=== PATIENT | female | born 1980 | race Caucasian/White ===

== ENCOUNTER 2017-07-21 10:31 | Inpatient (IN) | payer OTHER ==
[2017-07-21 12:03] VITALS: BMI 26.9
--- NOTE | 2017-07-21 12:23 | HP ---
Admission [facility] Chief Complaint: i need help to stop using crack and marijuana Allergies/Adverse Reactions: Allergies Allergy/AdvReac Type Severity Reaction Status Date / Time Penicillins Allergy Severe Hives Verified 07/21/17 12:13 History of Present Illness: this 37 years old female with crack dependence and marijuana dependence seeking rehab,last treatment [facility] in 02/26 nicotine dependence bipolar disorder need help to come in for rehab , Exam Limitations: No Limitations - Ebola screening Have you traveled outside of the country in the last 21 days: No Have you had contact with anyone from an Ebola affected area: No Have you been sick,other than usual withdrawal symptoms: No Do you have a fever: No - Review of Systems Constitutional: No Symptoms Reported EENT: reports: No Symptoms Reported Respiratory: reports: No Symptoms reported Cardiac: reports: No Symptoms Reported GI: reports: No Symptoms Reported : reports: No Symptoms Reported Musculoskeletal: reports: No Symptoms Reported Integumentary: reports: No Symptoms Reported Neuro: reports: No Symptoms reported Endocrine: reports: No Symptoms Reported Hematology: reports: No Symptoms Reported Psychiatric: reports: No Sypmtoms Reported, Judgement Intact, Mood/Affect Appropiate, Orientated x3 Other Systems: Reviewed and Negative Patient History - Patient Medical History Hx Anemia: No Hx Asthma: No Hx Chronic Obstructive Pulmonary Disease (COPD): No Hx Cancer: No Hx Cardiac Disorders: No Hx Congestive Heart Failure: No Hx Hypertension: No Hx Hypercholesterolemia: No Hx Pacemaker: No HX Cerebrovascular Accident: No Hx Seizures: No Hx Dementia: No Hx Diabetes: No Hx Gastrointestinal Disorders: No Hx Liver Disease: No Hx Genitourinary Disorders: No Hx Sexually Transmitted Disorders: No Hx Renal Disease (ESRD): No Hx Thyroid Disease: No Hx Human Immunodeficiency Virus (HIV): No (last 2012 negative) Hx Hepatitis C: No Hx Depression: No Hx Suicide Attempt: No Hx Bipolar Disorder: Yes (on med) Hx Schizophrenia: No Other Medical History: no suicidal,no homicidal - Patient Surgical History Past Surgical History: No - PPD History Previous Implant?: Yes Documented Results: Negative w/o proof Implanted On Prior [facility] Admission?: No PPD to be Administered?: Yes - Reproductive History Patient is a Female of Child Bearing Age (11 -55 yrs old): Yes Last Menstrual Period: 06/24/17 Patient : No - Smoking Cessation Smoking history: Current every day smoker Have you smoked in the past 12 months: Yes Aproximately how many cigarettes per day: 20 Cigars Per Day: 0 Hx Chewing Tobacco Use: No Initiated information on smoking cessation: Yes 'Breaking Loose' booklet given: 07/21/17 - Substance & Tx. History Hx Alcohol Use: No Hx Substance Use: Yes Substance Use Type: Cocaine, Marijuana Hx Substance Use Treatment: Yes (02/26 [facility]) - Substances Abused Crack Route: Smoking Frequency: Daily Amount used: $80 Age of first use: 23 Date of Last Use: 07/19/17 Marijuana/Hashish Route: Smoking Frequency: 1-2 times per week Amount used: $10 Age of first use: 17 Date of Last Use: 06/21/17 Family Disease History - Family Disease History Family Disease History: Other: Father (alcohol,sober) Admission Physical Exam [facility] - Vital Signs Vital Signs: Vital Signs - 24 hr 07/21/17 11:58 Temperature 96.8 F L Pulse Rate 75 Respiratory 20 Rate Blood Pressure 102/63 - Physical General Appearance: Yes: Within Normal Limits HEENTM: Yes: Within Normal Limits, JADYN, Pharynx Normal Respiratory: Yes: Lungs Clear, Normal Breath Sounds, No Respiratory Distress Neck: Yes: Within Normal Limits, Supple, Trachea in good position Breast: Yes: Within Normal Limits Cardiology: Yes: Within Normal Limits, Regular Rhythm, Regular Rate, S1, S2 Abdominal: Yes: Within Normal Limits, Normal Bowel Sounds, Non Tender, Flat, Soft Genitourinary: Yes: Within Normal Limits Back: Yes: Within Normal Limits Musculoskeletal: Yes: Within Normal Limits Extremities: Yes: Within Normal Limits Neurological: Yes: lacing presser II-XII NML intact, Fully Oriented, Alert, Motor Strength 5/5 Integumentary: Yes: Within Normal Limits Lymphatic: Yes: Within Normal Limits - Diagnostic (1) Cocaine dependence Current Visit: Yes Status: Acute (2) Cannabis dependence Current Visit: Yes Status: Acute (3) Nicotine dependence Current Visit: Yes Status: Chronic (4) Bipolar disorder Current Visit: Yes Status: Acute Cleared for Admission [facility] - Detox or Rehab Claeared for Rehab Admission: Yes [facility] Breath Alcohol Content Breath Alcohol Content: 0 Urine Pregancy Test - Result Urine Test Results: Negative- NO Line Present Urine Drug Screen - Results Drug Screen Negative: No Urine Drug Screen Results: KASEY-Cocaine Inpatient Rehab Admission - Initial Determination Are CD services needed?: Yes Free of communicable disease: Yes Not in need of hospitalization: Yes - Rehab Admission Criteria Previous failed treatment: Yes Poor recovery environment: Yes Comorbidities: Yes Lacks judgement: No Patient is meeting Inpatient Rehab admission criteria:: Yes
[2017-07-21] MEDS ORDERED: MENTHOL/PHENOL 1 EACH UD MM PRN (12:34)
[2017-07-21] MEDS ORDERED: P-EPHED 60MG/TRIPROLIDI 2.5MG TABLET PO PRN (12:34)
[2017-07-21] MEDS ORDERED: ACETAMINOPHEN 325 MG TABLET (FP) PO PRN (12:34)
[2017-07-21] MEDS ORDERED: MAG HYDROX/AL HYDROX/SIMETH 30 ML UNIT-DOSE CUP PO PRN (12:34)
[2017-07-21] MEDS ORDERED: IBUPROFEN 400 MG TABLET (FP) PO PRN (12:34)
[2017-07-21] MEDS ORDERED: MAGNESIUM HYDROX 2400MG/30ML ORAL SUSPENSION 30 ML CUP PO PRN (12:34)
[2017-07-21] MEDS ORDERED: LOPERAMIDE HCL 2 MG CAPSULE PO PRN (12:34)
[2017-07-21] MEDS ORDERED: guaiFENesin/D-METHORPHAN HB 10 ML UNIT-DOSE CUPS PO PRN (12:34)
[2017-07-21] MEDS ORDERED: MAGNESIUM CITRATE 300 ML BOTTLE PO PRN (12:34)
[2017-07-21] MEDS: NICOTINE 21 MG/24 HOURS TOPICAL PATCH TD SCH (14:48)
--- NOTE | 2017-07-21 15:11 | PN ---
[facility] Progress Note Note: Called by nursing staff to order medications for newly admitted patient from [facility]. Medication reconciliation done(Gabapentin 300 mg po TID, Olanzapine 10 mg po HS, Topiramate 50 mg po TID, Effexor XR 225 mg po daily) Patient requests Topiramate to be ordered as followin mg daily & 100 mg HS
[2017-07-21] MEDS: GABAPENTIN 300 MG CAPSULE (FP) PO SCH (21:10)
[2017-07-21] MEDS: TOPIRAMATE 100 MG TABLET PO SCH (21:10)
[2017-07-21] MEDS: THIAMINE HCL 100 MG TABLET (FP) PO SCH (21:10)
[2017-07-21] MEDS: OLANZapine 10 MG TABLET PO SCH (21:10)
[2017-07-21 21:26] LABS: HEMATOCRIT 35.9 % (32.4-45.2); HEMOGLOBIN 12.4 GM/dL (10.7-15.3); MCH 31.7 pg (25.7-33.7); MCHC 34.6 g/dl (32.0-36.0); MEAN CELL VOLUME 91.8 fl (80-96); MEAN PLT VOLUME 9.1 fl (7.5-11.1); PLATELET COUNT 288 K/MM3 (134-434); RBC 3.91 M/mm3 (3.60-5.2); RDW 13.7 % (11.6-15.6); WHITE BLOOD COUNT 7.9 K/mm3 (4.0-10.0)
[2017-07-21 21:45] LABS: ALBUMIN 3.7 g/dl (3.4-5.0); ANION GAP 6 (8-16); BLOOD UREA NITROGEN 16 mg/dL (7-18); CHLORIDE 112 mmol/L (98-107); CO2 25 mmol/L (21-32); CREATININE 1.1 mg/dL (0.55-1.02); GLUCOSE,RANDOM 82 mg/dL (74-106); POTASSIUM 4.2 mmol/L (3.5-5.1); SGOT/AST 8 U/L (15-37); SGPT/ALT 18 U/L (12-78); SODIUM 143 mmol/L (136-145); TOT PROT 7.1 g/dl (6.4-8.2)
[2017-07-21 21:46] LABS: ALK PHOS 66 U/L (45-117)
[2017-07-21 21:52] LABS: BILIRUBIN,TOTAL < 0.1 mg/dL (0.2-1.0)
[2017-07-21 22:31] LABS: URINE APPEARANCE CLOUDY; URINE BILIRUBIN NEGATIVE (<2.0 mg/dL); URINE BLOOD NEGATIVE (NEGATIVE); URINE COLOR YELLOW; URINE GLUCOSE (UA) NEGATIVE (NEGATIVE); URINE KETONE NEGATIVE (NEGATIVE); URINE NITRITE NEGATIVE (NEGATIVE); URINE PROTEIN NEGATIVE (NEGATIVE); URINE UROBILINOGEN NEGATIVE mg/dL (0.2-1.0)
[2017-07-21 22:36] LABS: URINE LEUK ESTERASE 2+ (NEGATIVE)
[2017-07-21 22:40] LABS: EPI CELLS MODERATE /HPF (FEW); URINE BACTERIA RARE /hpf (NONE SEEN); URINE HYALINE CAST 1 /lpf; URINE MUCUS RARE
[2017-07-22] MEDS ORDERED: PT OWN MED DRAWER 7, Y5N ONE (08:56)
[2017-07-22] MEDS: PRENATAL VITAMINS W/ FOLIC ACID TABLET (FP) PO SCH (09:47)
[2017-07-22] MEDS: GABAPENTIN 300 MG CAPSULE (FP) PO SCH ×2 (09:47→21:09)
[2017-07-22] MEDS: NICOTINE 21 MG/24 HOURS TOPICAL PATCH TD SCH (09:47)
[2017-07-22] MEDS: TOPIRAMATE 25 MG TABLET (FP) PO SCH (09:47)
[2017-07-22] MEDS: VENLAFAXINE HCL 75 MG E.R. CAPSULES (FP) PO SCH (09:47)
[2017-07-22] MEDS ORDERED: VENLAFAXINE HCL 25 MG TABLET PO SCH (10:00)
--- NOTE | 2017-07-22 13:32 | EKG ---
Test Reason : Blood Pressure : / mmHG Vent. Rate : 067 BPM Atrial Rate : 067 BPM P-R Int : 180 ms QRS Dur : 084 ms QT Int : 378 ms P-R-T Axes : 046 058 046 degrees QTc Int : 399 ms NORMAL SINUS RHYTHM NORMAL ECG NO PREVIOUS ECGS AVAILABLE Confirmed by SILKE EMERY MD ([id number]) on 07/22/2017 1:31:57 PM Referred By: Confirmed By:SILKE EMERY MD
--- NOTE | 2017-07-22 15:31 | HP ---
Psychiatrist Admission - Data Date of interview: 07/22/17 Admission source: [facility] Identifying data: Pt. is a 37 year old single female, mother of two, unemployed , lives alone, and is supported by [facility]. This is patient's [facility] admission to [facility]. Pt. admitted to [address] [place] [address] for cocaine dependence. Medical History: Denies. Psychiatric History: Patient's first encounter with a psychiatrist was at 20 years of age due to depression. Pt. reports multiple psychiatric hospitalizations, most recently at [facility] in November 2016. Pt. has also been hospitalized at [facility]. Outpatient care is provided at [facility] in [place]. Pt. has a diagnosis of Bipolar disorder and is currently prescribed Gabapentin 300mg BID + Zyprexa 10mg + Effexor 225mg + Topamax 50mg PO daily + Topamax 100mg qhs. Pt is compliant with medication regime. Pt. denies suicide attempt. Pt. currently denies suicidal and homicidal ideation. Physical/Sexual Abuse/Trauma History: Denies. Vital Signs: Vital Signs - 24 hr 07/22/17 07/22/17 07/22/17 00:30 03:30 07:04 Temperature 98.6 F Pulse Rate 97 H Respiratory 18 18 18 Rate Blood Pressure 92/59 Allergies/Adverse Reactions: Allergies Allergy/AdvReac Type Severity Reaction Status Date / Time Penicillins Allergy Severe Hives Verified 07/21/17 12:13 Date of last physical exam: 07/21/17 Concur with the findings of this exam: Yes - Substance Abuse/Tx History Hx Alcohol Use: No Hx Substance Use: Yes (Crack- last used on 07/19/17 Marijuana- last used "months ago") Substance Use Type: Cocaine, Marijuana Hx Substance Use Treatment: Yes ([facility] February 2017) Mental Status Exam - Mental Status Exam Alert and Oriented to: Time, Place, Person Cognitive Function: Good Patient Appearance: Well Groomed Mood: Euthymic Affect: Mood Congruent Patient Behavior: Cooperative Speech Pattern: Clear, Appropriate Voice Loudness: Normal Thought Process: Goal Oriented Thought Disorder: Not Present Hallucinations: Denies Suicidal Ideation: Denies Homicidal Ideation: Denies Insight/Judgement: Poor Sleep: Fair Appetite: Fair Muscle strength/Tone: Normal Gait/Station: Normal Psychiatric Findings - Problem List ([place] 1, 2,3) (1) Bipolar disorder Current Visit: Yes Status: Acute (2) Cocaine dependence Current Visit: Yes Status: Acute (3) Nicotine dependence Current Visit: Yes Status: Chronic - Initial Treatment Plan Initial Treatment Plan: Psychoeducation provided. Rehabilitation in progress. Will continue current medications.
[2017-07-22] MEDS: OLANZapine 10 MG TABLET PO SCH (21:09)
[2017-07-22] MEDS: THIAMINE HCL 100 MG TABLET (FP) PO SCH (21:09)
[2017-07-22] MEDS: TOPIRAMATE 100 MG TABLET PO SCH (21:09)
[2017-07-23] MEDS ORDERED: PT OWN MED DRAWER 7, Y5N ONE (09:41)
[2017-07-23] MEDS: VENLAFAXINE HCL 75 MG E.R. CAPSULES (FP) PO SCH (10:05)
[2017-07-23] MEDS: PRENATAL VITAMINS W/ FOLIC ACID TABLET (FP) PO SCH (10:06)
[2017-07-23] MEDS: GABAPENTIN 300 MG CAPSULE (FP) PO SCH ×2 (10:06→21:05)
[2017-07-23] MEDS: NICOTINE 21 MG/24 HOURS TOPICAL PATCH TD SCH (10:06)
[2017-07-23] MEDS: TOPIRAMATE 25 MG TABLET (FP) PO SCH (10:06)
[2017-07-23] MEDS: THIAMINE HCL 100 MG TABLET (FP) PO SCH (21:05)
[2017-07-23] MEDS: OLANZapine 10 MG TABLET PO SCH (21:05)
[2017-07-23] MEDS: TOPIRAMATE 100 MG TABLET PO SCH (21:05)
[2017-07-23] MEDS: MELATONIN 5 MG TABLETS PO PRN (21:06)
[2017-07-24] MEDS ORDERED: PT OWN MED DRAWER 7, Y5N ONE (09:04)
[2017-07-24] MEDS: GABAPENTIN 300 MG CAPSULE (FP) PO SCH ×2 (09:46→21:19)
[2017-07-24] MEDS: TOPIRAMATE 25 MG TABLET (FP) PO SCH (09:46)
[2017-07-24] MEDS: NICOTINE 21 MG/24 HOURS TOPICAL PATCH TD SCH (09:46)
[2017-07-24] MEDS: PRENATAL VITAMINS W/ FOLIC ACID TABLET (FP) PO SCH (09:46)
[2017-07-24] MEDS: VENLAFAXINE HCL 75 MG E.R. CAPSULES (FP) PO SCH (10:47)
[2017-07-24] MEDS: OLANZapine 10 MG TABLET PO SCH (21:18)
[2017-07-24] MEDS: THIAMINE HCL 100 MG TABLET (FP) PO SCH (21:19)
[2017-07-24] MEDS: TOPIRAMATE 100 MG TABLET PO SCH (21:19)
[2017-07-24] MEDS: MELATONIN 5 MG TABLETS PO PRN (21:19)
[2017-07-25] MEDS ORDERED: PT OWN MED DRAWER 7, Y5N ONE ×2 (07:58→22:54)
[2017-07-25] MEDS: TOPIRAMATE 25 MG TABLET (FP) PO SCH (09:43)
[2017-07-25] MEDS: VENLAFAXINE HCL 75 MG E.R. CAPSULES (FP) PO SCH (09:43)
[2017-07-25] MEDS: PRENATAL VITAMINS W/ FOLIC ACID TABLET (FP) PO SCH (09:43)
[2017-07-25] MEDS: GABAPENTIN 300 MG CAPSULE (FP) PO SCH ×2 (09:43→21:20)
[2017-07-25] MEDS: NICOTINE 21 MG/24 HOURS TOPICAL PATCH TD SCH (09:43)
[2017-07-25] MEDS: THIAMINE HCL 100 MG TABLET (FP) PO SCH (21:20)
[2017-07-25] MEDS: TOPIRAMATE 100 MG TABLET PO SCH (21:20)
[2017-07-25] MEDS: OLANZapine 10 MG TABLET PO SCH (21:20)
[2017-07-25] MEDS: MELATONIN 5 MG TABLETS PO PRN (21:21)
[2017-07-26] MEDS: VENLAFAXINE HCL 75 MG E.R. CAPSULES (FP) PO SCH (09:59)
[2017-07-26] MEDS: TOPIRAMATE 25 MG TABLET (FP) PO SCH (10:00)
[2017-07-26] MEDS: PRENATAL VITAMINS W/ FOLIC ACID TABLET (FP) PO SCH (10:00)
[2017-07-26] MEDS: GABAPENTIN 300 MG CAPSULE (FP) PO SCH ×2 (10:00→21:01)
[2017-07-26] MEDS: NICOTINE 21 MG/24 HOURS TOPICAL PATCH TD SCH (10:01)
[2017-07-26] MEDS ORDERED: PT OWN MED DRAWER 7, Y5N ONE ×3 (11:28→23:29)
[2017-07-26] MEDS: THIAMINE HCL 100 MG TABLET (FP) PO SCH (21:01)
[2017-07-26] MEDS: OLANZapine 10 MG TABLET PO SCH (21:01)
[2017-07-26] MEDS: TOPIRAMATE 100 MG TABLET PO SCH (21:01)
[2017-07-26] MEDS: MELATONIN 5 MG TABLETS PO PRN (21:02)
[2017-07-27] MEDS ORDERED: PT OWN MED DRAWER 7, Y5N ONE (08:06)
[2017-07-27] MEDS: PRENATAL VITAMINS W/ FOLIC ACID TABLET (FP) PO SCH (10:03)
[2017-07-27] MEDS: GABAPENTIN 300 MG CAPSULE (FP) PO SCH ×2 (10:03→21:04)
[2017-07-27] MEDS: TOPIRAMATE 25 MG TABLET (FP) PO SCH (10:03)
[2017-07-27] MEDS: VENLAFAXINE HCL 75 MG E.R. CAPSULES (FP) PO SCH (10:03)
[2017-07-27] MEDS: NICOTINE 21 MG/24 HOURS TOPICAL PATCH TD SCH (10:03)
[2017-07-27] MEDS ORDERED: COLLOIDAL OATMEAL 1 BAR EACH TP PRN (12:46)
--- NOTE | 2017-07-27 12:50 | PN ---
[facility] Progress Note Note: Vital Signs Temperature 98.2 F 07/27/17 06:57 Pulse Rate 67 07/27/17 06:57 Respiratory Rate 18 07/27/17 06:57 Blood Pressure 111/75 07/27/17 06:57 O2 Sat by Pulse Oximetry (%) Laboratory Last Values WBC 7.9 K/mm3 (4.0-10.0) 07/21/17 13:00 RBC 3.91 M/mm3 (3.60-5.2) 07/21/17 13:00 Hgb 12.4 GM/dL (10.7-15.3) 07/21/17 13:00 Hct 35.9 % (32.4-45.2) 07/21/17 13:00 MCV 91.8 fl (80-96) 07/21/17 13:00 MCH 31.7 pg (25.7-33.7) 07/21/17 13:00 MCHC 34.6 g/dl (32.0-36.0) 07/21/17 13:00 RDW 13.7 % (11.6-15.6) 07/21/17 13:00 Plt Count 288 K/MM3 (134-434) 07/21/17 13:00 MPV 9.1 fl (7.5-11.1) 07/21/17 13:00 Sodium 143 mmol/L (136-145) 07/21/17 13:00 Potassium 4.2 mmol/L (3.5-5.1) 07/21/17 13:00 Chloride 112 mmol/L (98-107) H 07/21/17 13:00 Carbon Dioxide 25 mmol/L (21-32) 07/21/17 13:00 Anion Gap 6 (8-16) L 07/21/17 13:00 BUN 16 mg/dL (7-18) 07/21/17 13:00 Creatinine 1.1 mg/dL (0.55-1.02) H 07/21/17 13:00 Creat Clearance w eGFR 55.59 (>60) 07/21/17 13:00 Random Glucose 82 mg/dL (74-106) 07/21/17 13:00 Calcium 9.0 mg/dL (8.5-10.1) 07/21/17 13:00 Total Bilirubin < 0.1 mg/dL (0.2-1.0) L 07/21/17 13:00 AST 8 U/L (15-37) L 07/21/17 13:00 ALT 18 U/L (12-78) 07/21/17 13:00 Alkaline Phosphatase 66 U/L (45-117) 07/21/17 13:00 Total Protein 7.1 g/dl (6.4-8.2) 07/21/17 13:00 Albumin 3.7 g/dl (3.4-5.0) 07/21/17 13:00 Urine Color Yellow 07/21/17 17:40 Urine Appearance Cloudy 07/21/17 17:40 Urine pH 5.0 (5.0-8.0) 07/21/17 17:40 Ur Specific [place] 1.018 (1.001-1.035) 07/21/17 17:40 Urine Protein Negative (NEGATIVE) 07/21/17 17:40 Urine Glucose (UA) Negative (NEGATIVE) 07/21/17 17:40 Urine Ketones Negative (NEGATIVE) 07/21/17 17:40 Urine Blood Negative (NEGATIVE) 07/21/17 17:40 Urine Nitrite Negative (NEGATIVE) 07/21/17 17:40 Urine Bilirubin Negative (<2.0 mg/dL) 07/21/17 17:40 Urine Urobilinogen Negative mg/dL (0.2-1.0) 07/21/17 17:40 Ur Leukocyte Esterase 2+ (NEGATIVE) H 07/21/17 17:40 Urine WBC (Auto) 9 /hpf (3-5) 07/21/17 17:40 Urine RBC (Auto) 2 /hpf (0-3) 07/21/17 17:40 Ur Epithelial Cells Moderate /HPF (FEW) 07/21/17 17:40 Urine Bacteria Rare /hpf (NONE SEEN) 07/21/17 17:40 Hyaline Casts 1 /lpf 07/21/17 17:40 Urine Mucus Rare 07/21/17 17:40 RPR Titer Nonreactive (NONREACTIVE) 07/21/17 13:00 HIV 1&2 Antibody Screen Negative 07/21/17 13:00 HIV P24 Antigen Negative 07/21/17 13:00 patient c/o of redness and itch on face. A/P Patient AOx3, in no apparent distress + erythema and multiple commode on face Increase fluids hydrocortisone cream top BID Benzyl Per PRN Aveno soap Continue to monitor
[2017-07-27] MEDS: BENZOYL PEROXIDE 5% 60 GM GEL..GRAM. TP SCH (17:34)
[2017-07-27] MEDS: HYDROCORTISONE 1% TOPICAL LOTION 118 ML BOTTLE TP PRN (17:35)
[2017-07-27] MEDS: THIAMINE HCL 100 MG TABLET (FP) PO SCH (21:04)
[2017-07-27] MEDS: TOPIRAMATE 100 MG TABLET PO SCH (21:04)
[2017-07-27] MEDS: MELATONIN 5 MG TABLETS PO PRN (21:04)
[2017-07-27] MEDS: OLANZapine 10 MG TABLET PO SCH (21:04)
[2017-07-28] MEDS: NICOTINE 21 MG/24 HOURS TOPICAL PATCH TD SCH (09:47)
[2017-07-28] MEDS: HYDROCORTISONE 1% TOPICAL LOTION 118 ML BOTTLE TP PRN (09:48)
[2017-07-28] MEDS: GABAPENTIN 300 MG CAPSULE (FP) PO SCH ×2 (09:48→21:04)
[2017-07-28] MEDS: PRENATAL VITAMINS W/ FOLIC ACID TABLET (FP) PO SCH (09:48)
[2017-07-28] MEDS: TOPIRAMATE 25 MG TABLET (FP) PO SCH (09:48)
[2017-07-28] MEDS: BENZOYL PEROXIDE 5% 60 GM GEL..GRAM. TP SCH (09:49)
[2017-07-28] MEDS: VENLAFAXINE HCL 75 MG E.R. CAPSULES (FP) PO SCH (10:03)
[2017-07-28] MEDS: TOPIRAMATE 100 MG TABLET PO SCH (21:04)
[2017-07-28] MEDS: OLANZapine 10 MG TABLET PO SCH (21:04)
[2017-07-28] MEDS: MELATONIN 5 MG TABLETS PO PRN (21:04)
[2017-07-28] MEDS: THIAMINE HCL 100 MG TABLET (FP) PO SCH (21:04)
[2017-07-29] MEDS: NICOTINE 21 MG/24 HOURS TOPICAL PATCH TD SCH (09:47)
[2017-07-29] MEDS: PRENATAL VITAMINS W/ FOLIC ACID TABLET (FP) PO SCH (09:47)
[2017-07-29] MEDS: GABAPENTIN 300 MG CAPSULE (FP) PO SCH ×2 (09:47→21:10)
[2017-07-29] MEDS: TOPIRAMATE 25 MG TABLET (FP) PO SCH (09:47)
[2017-07-29] MEDS: VENLAFAXINE HCL 75 MG E.R. CAPSULES (FP) PO SCH (09:47)
[2017-07-29] MEDS: BENZOYL PEROXIDE 5% 60 GM GEL..GRAM. TP SCH (09:47)
[2017-07-29] MEDS: HYDROCORTISONE 1% TOPICAL LOTION 118 ML BOTTLE TP PRN (09:47)
[2017-07-29] MEDS: TOPIRAMATE 100 MG TABLET PO SCH (21:10)
[2017-07-29] MEDS: OLANZapine 10 MG TABLET PO SCH (21:10)
[2017-07-29] MEDS: THIAMINE HCL 100 MG TABLET (FP) PO SCH (21:11)
[2017-07-29] MEDS: MELATONIN 5 MG TABLETS PO PRN (21:11)
[2017-07-29] MEDS ORDERED: PT OWN MED DRAWER 7, Y5N ONE (23:30)
[2017-07-30] MEDS ORDERED: PT OWN MED DRAWER 7, Y5N ONE (08:20)
[2017-07-30] MEDS: BENZOYL PEROXIDE 5% 60 GM GEL..GRAM. TP SCH (10:05)
[2017-07-30] MEDS: NICOTINE 21 MG/24 HOURS TOPICAL PATCH TD SCH (10:05)
[2017-07-30] MEDS: TOPIRAMATE 25 MG TABLET (FP) PO SCH (10:07)
[2017-07-30] MEDS: PRENATAL VITAMINS W/ FOLIC ACID TABLET (FP) PO SCH (10:07)
[2017-07-30] MEDS: GABAPENTIN 300 MG CAPSULE (FP) PO SCH ×2 (10:07→21:12)
[2017-07-30] MEDS: VENLAFAXINE HCL 75 MG E.R. CAPSULES (FP) PO SCH (10:59)
--- NOTE | 2017-07-30 13:57 | PN ---
Psychiatric Progress Note Vital Signs: Vital Signs Period Temp Pulse Resp BP Sys/Mccarthy Pulse Ox Last 24 Hr 98.0 F 82 16-18 105/69 Date of Session: 07/30/17 Chief Complaint:: "depessed" HPI: Patient is addresing cocaine, nicotine dependence comorbid bipolar disorder. Current Medications: Active Medications Generic Name Dose Route Start Last Admin Trade Name Freq PRN Reason Stop Dose Admin Acetaminophen 650 mg 07/21/17 12:34 Tylenol - PO Q4H PRN FEVER Al Hydroxide/Mg Hydroxide 30 ml 07/21/17 12:34 07/22/17 11:25 Mylanta Oral Suspension - PO 30 ml Q6H PRN Administration DYSPEPSIA Benzoyl Peroxide 1 applic 07/27/17 17:00 07/30/17 10:05 Benzoyl Peroxide 5% Gel - TP 1 applic DAILY LISA Administration Colloidal Oatmeal 1 applic 07/27/17 12:46 07/27/17 15:54 Aveeno Soap - TP 1 bar DAILY PRN Administration HYGEINE Eucalyptus/Menthol/Phenol/Sorbitol 1 each 07/21/17 12:34 Cepastat Lozenge - MM Q4H PRN SORE THROAT Gabapentin 300 mg 07/21/17 22:00 07/30/17 10:07 Neurontin - PO 300 mg BID LISA Administration Guaifenesin 10 ml 07/21/17 12:34 Robitussin Dm - PO Q6H PRN COUGH Hydrocortisone 1 applic 07/27/17 12:47 07/29/17 09:47 Hytone 1% Lotion - TP 1 applic BID PRN Administration skin irritation Hydroxyzine Pamoate 50 mg 07/21/17 12:34 Vistaril - PO Q4H PRN AGITATION Ibuprofen 400 mg 07/21/17 12:34 Motrin - PO Q6H PRN Pain level 4-6 Loperamide HCl 4 mg 07/21/17 12:34 Imodium - PO Q6H PRN DIARRHEA Magnesium Citrate 300 ml 07/21/17 12:34 Citroma - PO Q48H PRN CONSTIPATION Magnesium Hydroxide 30 ml 07/21/17 12:34 Milk Of Magnesia - PO DAILY PRN CONSTIPATION Melatonin 5 mg 07/21/17 22:00 07/29/17 21:11 Melatonin PO 5 mg HS PRN Administration INSOMNIA Nicotine 21 mg 07/21/17 12:45 04/20/18 10:05 Nicoderm Patch - TD 21 mg DAILY LISA Administration Olanzapine 10 mg 07/21/17 22:00 07/29/17 21:10 Zyprexa - PO 10 mg HS LISA Administration Multivit/Folic Acid/Iron 1 tab 07/22/17 10:00 07/30/17 10:07 Vitamins ([facility]) - PO 1 tab DAILY LISA Administration Pseudoephedrine/Triprolidine 1 combo 07/21/17 12:34 Actifed - PO TID PRN NASAL CONGESTION Thiamine HCl 100 mg 07/21/17 22:00 07/29/17 21:11 Vitamin B1 - PO 100 mg HS LISA Administration Topiramate 50 mg 07/22/17 10:00 07/30/17 10:07 Topamax - PO 50 mg DAILY LISA Administration Topiramate 100 mg 07/21/17 22:00 07/29/17 21:10 Topamax - PO 100 mg HS LISA Administration Venlafaxine HCl 225 mg 07/22/17 10:00 07/30/17 10:59 Effexor Xr - PO 225 mg DAILY LISA Administration Current Side Effect: No Lab tests ordered: No Lab tests reviewed: Yes Provider note:: Patient was seen chart reviewed, HORTENCIA Gamez's notes appreciateed , met with the patient who reports "my counselor says I have a flat affect", patient reports feeling trish, depressed, currently on different psychotropics, sees the psychiatrist at [facility] in [place], reviewed all current medications with the patient, indications and properties discussed, recommended Wellbutrin 100 mg po daily, patient agreed with care plan. Total face to face time:: 25 Mental Status Exam - Mental Status Exam Alert and Oriented to: Time, Place, Person Cognitive Function: Grossly Intact Patient Appearance: Well Groomed Mood: Apathetic, Depressed, Sad Affect: Appropriate, Mood Congruent Patient Behavior: Appropriate, Cooperative Speech Pattern: Appropriate Voice Loudness: Normal Thought Process: Goal Oriented Thought Disorder: Not Present Hallucinations: Denies Suicidal Ideation: Denies Homicidal Ideation: Denies Insight/Judgement: Fair Sleep: Fair Appetite: Fair Muscle strength/Tone: Normal Gait/Station: Normal Psychiatric Treatment Plan - Problem List (1) Bipolar disorder Current Visit: Yes (2) Cannabis dependence Current Visit: Yes (3) Cocaine dependence Current Visit: Yes (4) Nicotine dependence Current Visit: Yes Qualifiers: Nicotine product type: cigarettes
[2017-07-30] MEDS: hydrOXYzine PAMOATE 50 MG CAPSULE (FP) PO PRN (15:52)
[2017-07-30] MEDS: TOPIRAMATE 100 MG TABLET PO SCH (21:12)
[2017-07-30] MEDS: OLANZapine 10 MG TABLET PO SCH (21:12)
[2017-07-30] MEDS: THIAMINE HCL 100 MG TABLET (FP) PO SCH (21:12)
[2017-07-30] MEDS: MELATONIN 5 MG TABLETS PO PRN (21:13)
[2017-07-31] MEDS: TOPIRAMATE 25 MG TABLET (FP) PO SCH (09:54)
[2017-07-31] MEDS: VENLAFAXINE HCL 75 MG E.R. CAPSULES (FP) PO SCH (09:54)
[2017-07-31] MEDS: GABAPENTIN 300 MG CAPSULE (FP) PO SCH ×2 (09:54→21:02)
[2017-07-31] MEDS: PRENATAL VITAMINS W/ FOLIC ACID TABLET (FP) PO SCH (09:54)
[2017-07-31] MEDS: buPROPion HCL 100 MG TABLET PO SCH (09:54)
[2017-07-31] MEDS: NICOTINE 21 MG/24 HOURS TOPICAL PATCH TD SCH (09:55)
[2017-07-31] MEDS: BENZOYL PEROXIDE 5% 60 GM GEL..GRAM. TP SCH (09:56)
[2017-07-31] MEDS: OLANZapine 10 MG TABLET PO SCH (21:02)
[2017-07-31] MEDS: TOPIRAMATE 100 MG TABLET PO SCH (21:02)
[2017-07-31] MEDS: THIAMINE HCL 100 MG TABLET (FP) PO SCH (21:03)
[2017-07-31] MEDS: MELATONIN 5 MG TABLETS PO PRN (21:03)
[2017-08-01] MEDS: VENLAFAXINE HCL 75 MG E.R. CAPSULES (FP) PO SCH (09:53)
[2017-08-01] MEDS: TOPIRAMATE 25 MG TABLET (FP) PO SCH (09:53)
[2017-08-01] MEDS: GABAPENTIN 300 MG CAPSULE (FP) PO SCH ×2 (09:53→21:04)
[2017-08-01] MEDS: buPROPion HCL 100 MG TABLET PO SCH (09:53)
[2017-08-01] MEDS: PRENATAL VITAMINS W/ FOLIC ACID TABLET (FP) PO SCH (09:53)
[2017-08-01] MEDS: NICOTINE 21 MG/24 HOURS TOPICAL PATCH TD SCH (09:54)
[2017-08-01] MEDS: BENZOYL PEROXIDE 5% 60 GM GEL..GRAM. TP SCH (09:55)
[2017-08-01] MEDS: hydrOXYzine PAMOATE 50 MG CAPSULE (FP) PO PRN (13:03)
[2017-08-01] MEDS: THIAMINE HCL 100 MG TABLET (FP) PO SCH (21:04)
[2017-08-01] MEDS: TOPIRAMATE 100 MG TABLET PO SCH (21:04)
[2017-08-01] MEDS: OLANZapine 10 MG TABLET PO SCH (21:05)
[2017-08-01] MEDS: MELATONIN 5 MG TABLETS PO PRN (21:05)
[2017-08-02] MEDS ORDERED: PT OWN MED DRAWER 7, Y5N ONE ×2 (08:12→19:11)
[2017-08-02] MEDS: TOPIRAMATE 25 MG TABLET (FP) PO SCH (09:38)
[2017-08-02] MEDS: GABAPENTIN 300 MG CAPSULE (FP) PO SCH ×2 (09:38→21:00)
[2017-08-02] MEDS: buPROPion HCL 100 MG TABLET PO SCH (09:38)
[2017-08-02] MEDS: NICOTINE 21 MG/24 HOURS TOPICAL PATCH TD SCH (09:39)
[2017-08-02] MEDS: BENZOYL PEROXIDE 5% 60 GM GEL..GRAM. TP SCH (09:39)
[2017-08-02] MEDS: VENLAFAXINE HCL 75 MG E.R. CAPSULES (FP) PO SCH (09:39)
[2017-08-02] MEDS: PRENATAL VITAMINS W/ FOLIC ACID TABLET (FP) PO SCH (09:39)
[2017-08-02] MEDS: TOPIRAMATE 100 MG TABLET PO SCH (21:00)
[2017-08-02] MEDS: OLANZapine 10 MG TABLET PO SCH (21:00)
[2017-08-02] MEDS: MELATONIN 5 MG TABLETS PO PRN (21:00)
[2017-08-02] MEDS: THIAMINE HCL 100 MG TABLET (FP) PO SCH (21:00)
[2017-08-03] MEDS: VENLAFAXINE HCL 75 MG E.R. CAPSULES (FP) PO SCH (09:56)
[2017-08-03] MEDS: GABAPENTIN 300 MG CAPSULE (FP) PO SCH ×2 (09:56→21:10)
[2017-08-03] MEDS: TOPIRAMATE 25 MG TABLET (FP) PO SCH (09:56)
[2017-08-03] MEDS: PRENATAL VITAMINS W/ FOLIC ACID TABLET (FP) PO SCH (09:56)
[2017-08-03] MEDS: NICOTINE 21 MG/24 HOURS TOPICAL PATCH TD SCH (09:57)
[2017-08-03] MEDS: BENZOYL PEROXIDE 5% 60 GM GEL..GRAM. TP SCH (09:57)
[2017-08-03] MEDS: hydrOXYzine PAMOATE 50 MG CAPSULE (FP) PO PRN ×2 (10:50→21:11)
[2017-08-03] MEDS: buPROPion HCL 100 MG TABLET PO SCH (10:50)
[2017-08-03] MEDS: THIAMINE HCL 100 MG TABLET (FP) PO SCH (21:10)
[2017-08-03] MEDS: TOPIRAMATE 100 MG TABLET PO SCH (21:10)
[2017-08-03] MEDS: OLANZapine 10 MG TABLET PO SCH (21:10)
[2017-08-03] MEDS: MELATONIN 5 MG TABLETS PO PRN (21:11)
[2017-08-04] MEDS: hydrOXYzine PAMOATE 50 MG CAPSULE (FP) PO PRN ×2 (08:20→22:28)
[2017-08-04] MEDS: VENLAFAXINE HCL 75 MG E.R. CAPSULES (FP) PO SCH (09:50)
[2017-08-04] MEDS: buPROPion HCL 100 MG TABLET PO SCH (09:50)
[2017-08-04] MEDS: TOPIRAMATE 25 MG TABLET (FP) PO SCH (09:50)
[2017-08-04] MEDS: PRENATAL VITAMINS W/ FOLIC ACID TABLET (FP) PO SCH (09:51)
[2017-08-04] MEDS: GABAPENTIN 300 MG CAPSULE (FP) PO SCH ×2 (09:51→21:06)
[2017-08-04] MEDS: NICOTINE 21 MG/24 HOURS TOPICAL PATCH TD SCH (09:52)
[2017-08-04] MEDS: BENZOYL PEROXIDE 5% 60 GM GEL..GRAM. TP SCH (09:53)
--- NOTE | 2017-08-04 13:08 | PN ---
Psychiatric Progress Note Vital Signs: Vital Signs Period Temp Pulse Resp BP Sys/Mccarthy Pulse Ox Last 24 Hr 98.0 F 78 16-18 103/70 Date of Session: 08/04/17 Chief Complaint:: " I have questions on my medications." HPI: Pt. admitted to for cocaine dependence. ROS: Unremarkable Current Medications: Active Medications Generic Name Dose Route Start Last Admin Trade Name Freq PRN Reason Stop Dose Admin Acetaminophen 650 mg 07/21/17 12:34 Tylenol - PO Q4H PRN FEVER Al Hydroxide/Mg Hydroxide 30 ml 07/21/17 12:34 07/22/17 11:25 Mylanta Oral Suspension - PO 30 ml Q6H PRN Administration DYSPEPSIA Benzoyl Peroxide 1 applic 07/27/17 17:00 08/04/17 09:53 Benzoyl Peroxide 5% Gel - TP 1 applic DAILY LISA Administration Bupropion HCl 100 mg 07/31/17 10:00 08/04/17 09:50 Wellbutrin - PO 100 mg DAILY LISA Administration Colloidal Oatmeal 1 applic 07/27/17 12:46 07/27/17 15:54 Aveeno Soap - TP 1 bar DAILY PRN Administration HYGEINE Eucalyptus/Menthol/Phenol/Sorbitol 1 each 07/21/17 12:34 Cepastat Lozenge - MM Q4H PRN SORE THROAT Gabapentin 300 mg 07/21/17 22:00 08/04/17 09:51 Neurontin - PO 300 mg BID LISA Administration Guaifenesin 10 ml 07/21/17 12:34 Robitussin Dm - PO Q6H PRN COUGH Hydrocortisone 1 applic 07/27/17 12:47 07/29/17 09:47 Hytone 1% Lotion - TP 1 applic BID PRN Administration skin irritation Hydroxyzine Pamoate 50 mg 07/21/17 12:34 08/04/17 08:20 Vistaril - PO 50 mg Q4H PRN Administration AGITATION Ibuprofen 400 mg 07/21/17 12:34 Motrin - PO Q6H PRN Pain level 4-6 Loperamide HCl 4 mg 07/21/17 12:34 Imodium - PO Q6H PRN DIARRHEA Magnesium Citrate 300 ml 07/21/17 12:34 Citroma - PO Q48H PRN CONSTIPATION Magnesium Hydroxide 30 ml 07/21/17 12:34 Milk Of Magnesia - PO DAILY PRN CONSTIPATION Melatonin 5 mg 07/21/17 22:00 08/03/17 21:11 Melatonin PO 5 mg HS PRN Administration INSOMNIA Nicotine 21 mg 07/21/17 12:45 08/04/17 09:52 Nicoderm Patch - TD 21 mg DAILY LISA Administration Olanzapine 10 mg 07/21/17 22:00 08/03/17 21:10 Zyprexa - PO 10 mg HS LISA Administration Multivit/Folic Acid/Iron 1 tab 07/22/17 10:00 08/04/17 09:51 Vitamins ([facility]jr) - PO 1 tab DAILY LISA Administration Pseudoephedrine/Triprolidine 1 combo 07/21/17 12:34 Actifed - PO TID PRN NASAL CONGESTION Thiamine HCl 100 mg 07/21/17 22:00 08/03/17 21:10 Vitamin B1 - PO 100 mg HS LISA Administration Topiramate 50 mg 07/22/17 10:00 08/04/17 09:50 Topamax - PO 50 mg DAILY LISA Administration Topiramate 100 mg 07/21/17 22:00 08/03/17 21:10 Topamax - PO 100 mg HS LISA Administration Venlafaxine HCl 225 mg 07/22/17 10:00 08/04/17 09:50 Effexor Xr - PO 225 mg DAILY LISA Administration Medication(s) Change(s): No. Current Side Effect: No Lab tests ordered: No Lab tests reviewed: Yes Provider note:: War[facility] Preparer met with patient concerning her current medications. Pt. expressing concerns about the effectiveness of Wellbutrin. Dr. Murphy's note read and appreciated. Pt. was started on wellbutrin 100mg on 07/31/17. Pt. reports not feeling any different since starting Wellbutrin 100mg. Pt. informed that certain medications take several weeks to work until an individual can sense an improvement in mood. Pt. also educated on the other psychtrophic medications she is currently accepting: topmax + Effexor. Pt. satisifed and receptive to feedback. Will continue to monitor. Total face to face time:: 15 Mental Status Exam - Mental Status Exam Alert and Oriented to: Time, Place, Person Cognitive Function: Good Patient Appearance: Well Groomed Mood: Hopeful Affect: Mood Congruent Patient Behavior: Appropriate, Cooperative Speech Pattern: Appropriate Voice Loudness: Normal Thought Disorder: Not Present Hallucinations: Denies Suicidal Ideation: Denies Homicidal Ideation: Denies Insight/Judgement: Poor Sleep: Fair Appetite: Good Muscle strength/Tone: Normal Gait/Station: Normal Psychiatric Treatment Plan - Problem List (1) Bipolar disorder Current Visit: Yes (2) Cocaine dependence Current Visit: Yes (3) Nicotine dependence Current Visit: Yes Qualifiers: Nicotine product type: cigarettes
[2017-08-04] MEDS ORDERED: PT OWN MED DRAWER 7, Y5N ONE ×2 (21:01→23:32)
[2017-08-04] MEDS: MELATONIN 5 MG TABLETS PO PRN (21:06)
[2017-08-04] MEDS: TOPIRAMATE 100 MG TABLET PO SCH (21:07)
[2017-08-04] MEDS: THIAMINE HCL 100 MG TABLET (FP) PO SCH (21:07)
[2017-08-04] MEDS: OLANZapine 10 MG TABLET PO SCH (21:07)
[2017-08-05] MEDS ORDERED: PT OWN MED DRAWER 7, Y5N ONE ×4 (07:40→23:26)
[2017-08-05] MEDS: GABAPENTIN 300 MG CAPSULE (FP) PO SCH ×2 (09:44→21:14)
[2017-08-05] MEDS: PRENATAL VITAMINS W/ FOLIC ACID TABLET (FP) PO SCH (09:44)
[2017-08-05] MEDS: buPROPion HCL 100 MG TABLET PO SCH (09:44)
[2017-08-05] MEDS: VENLAFAXINE HCL 75 MG E.R. CAPSULES (FP) PO SCH (09:44)
[2017-08-05] MEDS: NICOTINE 21 MG/24 HOURS TOPICAL PATCH TD SCH (09:44)
[2017-08-05] MEDS: TOPIRAMATE 25 MG TABLET (FP) PO SCH (09:44)
[2017-08-05] MEDS: BENZOYL PEROXIDE 5% 60 GM GEL..GRAM. TP SCH (09:45)
[2017-08-05] MEDS: TOPIRAMATE 100 MG TABLET PO SCH (21:13)
[2017-08-05] MEDS: THIAMINE HCL 100 MG TABLET (FP) PO SCH (21:13)
[2017-08-05] MEDS: OLANZapine 10 MG TABLET PO SCH (21:13)
[2017-08-05] MEDS: MELATONIN 5 MG TABLETS PO PRN (21:14)
[2017-08-06] MEDS: NICOTINE 21 MG/24 HOURS TOPICAL PATCH TD SCH (10:12)
[2017-08-06] MEDS: BENZOYL PEROXIDE 5% 60 GM GEL..GRAM. TP SCH (10:12)
[2017-08-06] MEDS: VENLAFAXINE HCL 75 MG E.R. CAPSULES (FP) PO SCH (10:13)
[2017-08-06] MEDS: GABAPENTIN 300 MG CAPSULE (FP) PO SCH ×2 (10:14→21:03)
[2017-08-06] MEDS: PRENATAL VITAMINS W/ FOLIC ACID TABLET (FP) PO SCH (10:14)
[2017-08-06] MEDS: TOPIRAMATE 25 MG TABLET (FP) PO SCH (10:14)
[2017-08-06] MEDS: buPROPion HCL 100 MG TABLET PO SCH (10:14)
[2017-08-06] MEDS: HYDROCORTISONE 1% TOPICAL LOTION 118 ML BOTTLE TP PRN (12:21)
[2017-08-06] MEDS ORDERED: PT OWN MED DRAWER 7, Y5N ONE (12:22)
[2017-08-06] MEDS: THIAMINE HCL 100 MG TABLET (FP) PO SCH (21:03)
[2017-08-06] MEDS: OLANZapine 10 MG TABLET PO SCH (21:03)
[2017-08-06] MEDS: TOPIRAMATE 100 MG TABLET PO SCH (21:04)
[2017-08-06] MEDS: MELATONIN 5 MG TABLETS PO PRN (21:05)
[2017-08-07] MEDS ORDERED: PT OWN MED DRAWER 7, Y5N ONE ×4 (08:39→22:33)
[2017-08-07] MEDS: BENZOYL PEROXIDE 5% 60 GM GEL..GRAM. TP SCH (09:32)
[2017-08-07] MEDS: VENLAFAXINE HCL 75 MG E.R. CAPSULES (FP) PO SCH (09:33)
[2017-08-07] MEDS: GABAPENTIN 300 MG CAPSULE (FP) PO SCH ×2 (09:34→21:11)
[2017-08-07] MEDS: NICOTINE 21 MG/24 HOURS TOPICAL PATCH TD SCH (09:34)
[2017-08-07] MEDS: TOPIRAMATE 25 MG TABLET (FP) PO SCH (09:34)
[2017-08-07] MEDS: buPROPion HCL 100 MG TABLET PO SCH (09:34)
[2017-08-07] MEDS: PRENATAL VITAMINS W/ FOLIC ACID TABLET (FP) PO SCH (09:34)
[2017-08-07] MEDS: OLANZapine 10 MG TABLET PO SCH (21:11)
[2017-08-07] MEDS: TOPIRAMATE 100 MG TABLET PO SCH (21:11)
[2017-08-07] MEDS: THIAMINE HCL 100 MG TABLET (FP) PO SCH (21:11)
[2017-08-07] MEDS: MELATONIN 5 MG TABLETS PO PRN (21:11)
[2017-08-08] MEDS: BENZOYL PEROXIDE 5% 60 GM GEL..GRAM. TP SCH (09:31)
[2017-08-08] MEDS: VENLAFAXINE HCL 75 MG E.R. CAPSULES (FP) PO SCH (09:31)
[2017-08-08] MEDS: NICOTINE 21 MG/24 HOURS TOPICAL PATCH TD SCH (09:32)
[2017-08-08] MEDS: TOPIRAMATE 25 MG TABLET (FP) PO SCH (09:32)
[2017-08-08] MEDS: PRENATAL VITAMINS W/ FOLIC ACID TABLET (FP) PO SCH (09:32)
[2017-08-08] MEDS: GABAPENTIN 300 MG CAPSULE (FP) PO SCH ×2 (09:32→21:17)
[2017-08-08] MEDS: buPROPion HCL 100 MG TABLET PO SCH (09:32)
[2017-08-08] MEDS: THIAMINE HCL 100 MG TABLET (FP) PO SCH (21:17)
[2017-08-08] MEDS: OLANZapine 10 MG TABLET PO SCH (21:17)
[2017-08-08] MEDS: MELATONIN 5 MG TABLETS PO PRN (21:17)
[2017-08-08] MEDS: TOPIRAMATE 100 MG TABLET PO SCH (21:17)
[2017-08-08] MEDS ORDERED: PT OWN MED DRAWER 7, Y5N ONE (22:59)
[2017-08-09] MEDS ORDERED: PT OWN MED DRAWER 7, Y5N ONE (08:31)
[2017-08-09] MEDS: VENLAFAXINE HCL 75 MG E.R. CAPSULES (FP) PO SCH (09:43)
[2017-08-09] MEDS: TOPIRAMATE 25 MG TABLET (FP) PO SCH (09:43)
[2017-08-09] MEDS: buPROPion HCL 100 MG TABLET PO SCH (09:43)
[2017-08-09] MEDS: GABAPENTIN 300 MG CAPSULE (FP) PO SCH ×2 (09:43→21:00)
[2017-08-09] MEDS: PRENATAL VITAMINS W/ FOLIC ACID TABLET (FP) PO SCH (09:43)
[2017-08-09] MEDS: NICOTINE 21 MG/24 HOURS TOPICAL PATCH TD SCH (09:43)
[2017-08-09] MEDS: BENZOYL PEROXIDE 5% 60 GM GEL..GRAM. TP SCH (09:44)
--- NOTE | 2017-08-09 10:33 | PN ---
Psychiatric Progress Note Vital Signs: Vital Signs Period Temp Pulse Resp BP Sys/Mccarthy Pulse Ox Last 24 Hr 98.1 F 74 18-18 115/81 Date of Session: 08/09/17 Chief Complaint:: Discharge visit HPI: Patient addressed Cocaine,Cannabis dependence comorbid with Bipolar disorder. ROS: unremarkable Current Medications: Active Medications Generic Name Dose Route Start Last Admin Trade Name Freq PRN Reason Stop Dose Admin Acetaminophen 650 mg 07/21/17 12:34 Tylenol - PO Q4H PRN FEVER Al Hydroxide/Mg Hydroxide 30 ml 07/21/17 12:34 07/22/17 11:25 Mylanta Oral Suspension - PO 30 ml Q6H PRN Administration DYSPEPSIA Benzoyl Peroxide 1 applic 07/27/17 17:00 08/09/17 09:44 Benzoyl Peroxide 5% Gel - TP 1 applic DAILY LISA Administration Bupropion HCl 100 mg 07/31/17 10:00 08/09/17 09:43 Wellbutrin - PO 100 mg DAILY LISA Administration Colloidal Oatmeal 1 applic 07/27/17 12:46 07/27/17 15:54 Aveeno Soap - TP 1 bar DAILY PRN Administration HYGEINE Eucalyptus/Menthol/Phenol/Sorbitol 1 each 07/21/17 12:34 Cepastat Lozenge - MM Q4H PRN SORE THROAT Gabapentin 300 mg 07/21/17 22:00 08/09/17 09:43 Neurontin - PO 300 mg BID LISA Administration Guaifenesin 10 ml 07/21/17 12:34 Robitussin Dm - PO Q6H PRN COUGH Hydrocortisone 1 applic 07/27/17 12:47 08/06/17 12:21 Hytone 1% Lotion - TP 1 applic BID PRN Administration skin irritation Hydroxyzine Pamoate 50 mg 07/21/17 12:34 08/04/17 22:28 Vistaril - PO 50 mg Q4H PRN Administration AGITATION Ibuprofen 400 mg 07/21/17 12:34 Motrin - PO Q6H PRN Pain level 4-6 Loperamide HCl 4 mg 07/21/17 12:34 Imodium - PO Q6H PRN DIARRHEA Magnesium Citrate 300 ml 07/21/17 12:34 Citroma - PO Q48H PRN CONSTIPATION Magnesium Hydroxide 30 ml 07/21/17 12:34 Milk Of Magnesia - PO DAILY PRN CONSTIPATION Melatonin 5 mg 07/21/17 22:00 08/08/17 21:17 Melatonin PO 5 mg HS PRN Administration INSOMNIA Nicotine 21 mg 07/21/17 12:45 08/09/17 09:43 Nicoderm Patch - TD 21 mg DAILY LISA Administration Olanzapine 10 mg 07/21/17 22:00 08/08/17 21:17 Zyprexa - PO 10 mg HS LISA Administration Multivit/Folic Acid/Iron 1 tab 07/22/17 10:00 08/09/17 09:43 Vitamins (Sjr) - PO 1 tab DAILY LISA Administration Pseudoephedrine/Triprolidine 1 combo 07/21/17 12:34 Actifed - PO TID PRN NASAL CONGESTION Thiamine HCl 100 mg 07/21/17 22:00 08/08/17 21:17 Vitamin B1 - PO 100 mg HS LISA Administration Topiramate 50 mg 07/22/17 10:00 08/09/17 09:43 Topamax - PO 50 mg DAILY LISA Administration Topiramate 100 mg 07/21/17 22:00 08/08/17 21:17 Topamax - PO 100 mg HS LISA Administration Venlafaxine HCl 225 mg 07/22/17 10:00 08/09/17 09:43 Effexor Xr - PO 225 mg DAILY LISA Administration Current Side Effect: No Lab tests ordered: No Lab tests reviewed: Yes Provider note:: Patient will complete this program tomorrow 08/10/17.She has met her treatment goals and will continue to address her issues on outpatient basis at [facility].Patient reports finding that Neurontin 300 mg po bid, Zyprexa 10 mg po hs,Effexor 225 mg po daily, Topamax 100 mg po daily and Topamax 50 mg po daily,Wellbutrin 100 mg po daily help to cope with anxiety, depression,mood instability,insomnia.Scripts for 30 days provided. Supportive therapy provided focusing on relapse prevention,coping skills,support utilization has been discussed as well as other resourses to maintain recovery. Patient is stable for discharge tomorrow 08/10/17. Total face to face time:: 30 Mental Status Exam - Mental Status Exam Alert and Oriented to: Time, Place, Person Cognitive Function: Grossly Intact Patient Appearance: Well Groomed Mood: Euthymic Affect: Mood Congruent Patient Behavior: Cooperative Speech Pattern: Clear Voice Loudness: Normal Thought Process: Goal Oriented Thought Disorder: Not Present Hallucinations: Denies Suicidal Ideation: Denies Homicidal Ideation: Denies Insight/Judgement: Fair Sleep: Fair Appetite: Good Muscle strength/Tone: Normal Gait/Station: Normal Psychiatric Treatment Plan - Problem List (1) Cannabis dependence Current Visit: Yes (2) Cocaine dependence Current Visit: Yes (3) Nicotine dependence Current Visit: Yes Qualifiers: Nicotine product type: cigarettes (4) Bipolar disorder Current Visit: Yes
[2017-08-09] MEDS: hydrOXYzine PAMOATE 50 MG CAPSULE (FP) PO PRN ×2 (14:54→21:01)
[2017-08-09] MEDS: OLANZapine 10 MG TABLET PO SCH (21:00)
[2017-08-09] MEDS: TOPIRAMATE 100 MG TABLET PO SCH (21:00)
[2017-08-09] MEDS: THIAMINE HCL 100 MG TABLET (FP) PO SCH (21:00)
[2017-08-09] MEDS: MELATONIN 5 MG TABLETS PO PRN (21:01)
[2017-08-10 06:48] VITALS: BP 106/73; PULSE 70; TEMP 98.5
[2017-08-10] MEDS ORDERED: PT OWN MED DRAWER 7, Y5N ONE (08:36)
[2017-08-10] MEDS: PRENATAL VITAMINS W/ FOLIC ACID TABLET (FP) PO SCH (09:13)
[2017-08-10] MEDS: NICOTINE 21 MG/24 HOURS TOPICAL PATCH TD SCH (09:13)
[2017-08-10] MEDS: GABAPENTIN 300 MG CAPSULE (FP) PO SCH (09:14)
[2017-08-10] MEDS: buPROPion HCL 100 MG TABLET PO SCH (09:14)
[2017-08-10] MEDS: VENLAFAXINE HCL 75 MG E.R. CAPSULES (FP) PO SCH (09:14)
[2017-08-10] MEDS: TOPIRAMATE 25 MG TABLET (FP) PO SCH (09:14)
== END 2017-08-10 09:47 | disposition home or self-care (01) | DRG 772 ==
LOC: YASAS 10:31 → Y3E 12:35
PROVIDERS: ADMIT Psychiatry & Neurology Psychiatry; ATTEND Psychiatry & Neurology Psychiatry
PROC: HZ42ZZZ Group Counseling for Substance Abuse Treatment, Cognitive-Behavioral (ICD-10-PCS; principal; 2017-07-21)
DX: F14.20 Cocaine dependence, uncomplicated (principal); F12.20 Cannabis dependence, uncomplicated; F17.210 Nicotine dependence, cigarettes, uncomplicated; F31.9 Bipolar disorder, unspecified; L70.9 Acne, unspecified; Z88.0 Allergy status to penicillin
CPT/HCPCS: 36415; 80053; 81003; 81015; 85027; 86593; 87389; 93005; 93010

== ENCOUNTER 2018-02-25 09:23 | Inpatient (IN) | payer OTHER ==
--- NOTE | 2018-02-25 10:09 | HP ---
CIWA Score Nausea/Vomitin Muscle Tremors: 2 Anxiety: 2 Agitation: 2 Paroxysmal Sweats: 1-Minimal Palms Moist Orientation: 0-Oriented Tacttile Disturbances: 1-Very Mild Itch/Numbness Auditory Disturbances: 1-Very Mild Visual Disturbances: 0-None Headache: 2-Mild CIWA-Ar Total Score: 13 - Admission Criteria OASAS Guidelines: Admission for Medically Managed Detox: Requires at least one of the followin. CIWA greater than 12 2. Seizures within the past 24 hours 3. Delirium tremens within the past 24 hours 4. Hallucinations within the past 24 hours 5. Acute intervention needed for co occurring medical disorder 6. Acute intervention needed for co occurring psychiatric disorder 7. Severe withdrawal that cannot be handled at a lower level of care (continued vomiting, continued diarrhea, abnormal vital signs) requiring intravenous medication and/or fluids 8. Admission ROS [facility] - HPI Chief Complaint: i need help to stop drinking alcohol,xanax and crack Allergies/Adverse Reactions: Allergies Allergy/AdvReac Type Severity Reaction Status Date / Time Penicillins Allergy Severe Hives Verified 02/25/18 09:36 History of Present Illness: this 37 years old female with alcohol,cocaine and xanax dependence,seeking detox ,withdrawal symptom,last 11/09/17 to 11/23/17 nicotine dependence bipolar disorder plan to go to rehab after detox Exam Limitations: No Limitations - Ebola screening Have you traveled outside of the country in the last 21 days: No Have you had contact with anyone from an Ebola affected area: No Have you been sick,other than usual withdrawal symptoms: No Do you have a fever: No - Review of Systems Constitutional: Loss of Appetite, Malaise, Night Sweats, Changes in sleep, Weakness EENT: reports: Nose Congestion Respiratory: reports: No Symptoms reported Cardiac: reports: No Symptoms Reported GI: reports: Nausea, Poor Appetite, Abdominal cramping Musculoskeletal: reports: Back Pain, Muscle Pain Neuro: reports: Headache, Tremors Endocrine: reports: No Symptoms Reported Hematology: reports: No Symptoms Reported Psychiatric: reports: No Sypmtoms Reported, Judgement Intact, Mood/Affect Appropiate, Orientated x3, Anxious (bipolar disorder), Depressed Patient History - Patient Medical History Hx Anemia: No Hx Asthma: No Hx Chronic Obstructive Pulmonary Disease (COPD): No Hx Cancer: No Hx Cardiac Disorders: No Hx Congestive Heart Failure: No Hx Hypertension: No Hx Hypercholesterolemia: No Hx Pacemaker: No HX Cerebrovascular Accident: No Hx Seizures: No Hx Dementia: No Hx Diabetes: No Hx Gastrointestinal Disorders: No Hx Liver Disease: No Hx Genitourinary Disorders: No Hx Sexually Transmitted Disorders: Yes (Trichomoniasis) Hx Renal Disease (ESRD): No Hx Thyroid Disease: No Hx Human Immunodeficiency Virus (HIV): No (11/09/17) Hx Hepatitis C: No Hx Depression: Yes Hx Suicide Attempt: No Hx Bipolar Disorder: Yes (on med) Hx Schizophrenia: No Other Medical History: no suicidal,no homicidal - Patient Surgical History Past Surgical History: Yes Hx Neurologic Surgery: No Hx Cataract Extraction: No Hx Cardiac Surgery: No Hx Lung Surgery: No Hx Breast Surgery: No Hx Breast Biopsy: No Hx Abdominal Surgery: No Hx Appendectomy: No Hx Cholecystectomy: No Hx Genitourinary Surgery: No Hx Section: Yes (x1 last 2002) Hx Orthopedic Surgery: No Hx Hysterectomy: No Anesthesia Reaction: No - PPD History Previous Implant?: Yes Documented Results: Negative w/proof Implanted On Prior [facility] Admission?: Yes Date: 11/11/17 Results: NEGATIVE PPD to be Administered?: No - Reproductive History Patient is a Female of Child Bearing Age (11 -55 yrs old): Yes Last Menstrual Period: 02/10/18 Patient : No - Smoking Cessation Smoking history: Current every day smoker Have you smoked in the past 12 months: Yes Aproximately how many cigarettes per day: 14 Cigars Per Day: 0 Hx Chewing Tobacco Use: No Initiated information on smoking cessation: Yes 'Breaking Loose' booklet given: 02/25/18 - Substance & Tx. History Hx Alcohol Use: Yes Hx Substance Use: Yes Substance Use Type: Alcohol, Cocaine, Tranquilizers - Substances Abused Alprazolam (Xanax) Route: Oral Frequency: Daily Amount used: 2MG TABLET Age of first use: 37 Date of Last Use: 02/24/18 Alcohol Route: Oral Frequency: Daily Amount used: 3 CANS OF BEER (24 OUNCES) Age of first use: 17 Date of Last Use: 02/24/18 Crack Route: Smoking Frequency: Daily Amount used: $60 Age of first use: 23 Date of Last Use: 02/24/18 Family Disease History - Family Disease History Family Disease History: [place]: Mother, Other: Father (alcohol,sober) Admission Physical Exam [facility] - Vital Signs Vital Signs: Vital Signs - 24 hr 02/25/18 09:26 Temperature 99.2 F Pulse Rate 83 Respiratory 18 Rate Blood Pressure 103/66 - Physical General Appearance: Yes: Moderate Distress, Tremorous, Irritable, Sweating, Anxious HEENTM: Yes: Normal ENT Inspection, JADYN, Pharynx Normal Respiratory: Yes: Lungs Clear, Normal Breath Sounds, No Respiratory Distress Neck: Yes: Within Normal Limits, Supple, Trachea in good position Breast: Yes: Within Normal Limits Cardiology: Yes: Within Normal Limits, Regular Rhythm, Regular Rate, S1, S2 Abdominal: Yes: Within Normal Limits, Normal Bowel Sounds, Non Tender, Flat, Soft Genitourinary: Yes: Within Normal Limits Back: Yes: Muscle Spasm Extremities: Yes: Tremors Neurological: Yes: renal medicine physician II-XII NML intact, Fully Oriented, Alert, Motor Strength 5/5 Integumentary: Yes: Dry Lymphatic: Yes: Within Normal Limits - Diagnostic (1) Alcohol dependence with uncomplicated withdrawal Current Visit: Yes Status: Acute (2) Uncomplicated sedative, hypnotic or anxiolytic withdrawal Current Visit: Yes Status: Acute (3) Cocaine dependence Current Visit: Yes Status: Acute (4) Bipolar disorder Current Visit: Yes Status: Chronic (5) Nicotine dependence Current Visit: Yes Status: Acute Qualifiers: Nicotine product type: cigarettes Substance use status: in withdrawal Qualified Code(s): F17.213 - Nicotine dependence, cigarettes, with withdrawal Cleared for Admission [facility] - Detox or Rehab [facility] Level of Care: Medically Managed Detox Regimen/Protocol: Valium [facility] Breath Alcohol Content Breath Alcohol Content: 0 Urine Pregancy Test - Result Urine Test Results: Negative- NO Line Present Urine Drug Screen - Results Drug Screen Negative: No Urine Drug Screen Results: THC-Marijuana, KASEY-Cocaine, BZO-Benzodiazepines
[2018-02-25] MEDS ORDERED: MAG HYDROX/AL HYDROX/SIMETH 30 ML UNIT-DOSE CUP PO PRN (10:21)
[2018-02-25] MEDS ORDERED: guaiFENesin/D-METHORPHAN HB 10 ML UNIT-DOSE CUPS PO PRN (10:21)
[2018-02-25] MEDS ORDERED: MENTHOL/PHENOL 1 EACH UD MM PRN (10:21)
[2018-02-25] MEDS ORDERED: LOPERAMIDE HCL 2 MG CAPSULE PO PRN (10:21)
[2018-02-25] MEDS ORDERED: MAGNESIUM HYDROX 2400MG/30ML ORAL SUSPENSION 30 ML CUP PO PRN (10:21)
[2018-02-25] MEDS ORDERED: IBUPROFEN 400 MG TABLET (FP) PO PRN (10:21)
[2018-02-25] MEDS ORDERED: hydrOXYzine PAMOATE 50 MG CAPSULE (FP) PO PRN (10:21)
[2018-02-25] MEDS ORDERED: chlordiazePOXIDE HCL 25 MG CAPSULE PO PRN (10:21)
[2018-02-25] MEDS ORDERED: MAGNESIUM CITRATE 300 ML BOTTLE PO PRN (10:21)
[2018-02-25] MEDS ORDERED: ACETAMINOPHEN 325 MG TABLET (FP) PO PRN (10:21)
[2018-02-25] MEDS ORDERED: P-EPHED 60MG/TRIPROLIDI 2.5MG TABLET PO PRN (10:21)
[2018-02-25] MEDS ORDERED: diazePAM 5 MG TABLET PO ONE (12:05)
[2018-02-25] MEDS: NICOTINE 21 MG/24 HOURS TOPICAL PATCH TD SCH (12:32)
[2018-02-25] MEDS: diazePAM 5 MG TABLET PO SCH ×2 (14:42→22:36)
[2018-02-25] MEDS ORDERED: chlordiazePOXIDE HCL 25 MG CAPSULE PO SCH (17:00)
[2018-02-25] MEDS: diazePAM 5 MG TABLET PO PRN (17:07)
--- NOTE | 2018-02-25 17:44 | CONSULT ---
[facility] Psychiatric Consult - Data Date of interview: 02/25/18 Admission source: [facility] Identifying data: Readmission to [facility] for this 37 y/o female seeking detoxification treatment, on , for alcohol, cannabis, benzodiazepine (xanax) and cocaine (crack) dependence. Patient is single, a mother of two, domiciled, unemployed and supported on [facility] benefits. Substance Abuse History: Confirmed by the patient. Details in current [facility] report : Smoking history: Current every day smoker. Have you smoked in the past 12 months: Yes. Aproximately how many cigarettes per day: 14. Cigars Per Day: 0. Hx Chewing Tobacco Use: No. Initiated information on smoking cessation : Yes. 'Breaking Loose' booklet given: 02/25/18. - Substance & Tx. History. Hx Alcohol Use: Yes. Hx Substance Use: Yes. Substance Use Type: Alcohol, Cocaine, Tranquilizers. - Substances Abused. Alprazolam (Xanax). Route: Oral. Frequency: Daily. Amount used: 2MG TABLET. Age of first use: 37. Date of Last Use: 02/24/18. Alcohol. Route: Oral. Frequency: Daily. Amount used: 3 CANS OF BEER (24 OUNCES). Age of first use: 17. Date of Last Use: . Crack. Route: Smoking. Frequency: Daily. Amount used: $60. Age of first use: 23. Date of Last Use: 02/24/18 Medical History: Patient endorses good general health. Psychiatric History: Onset of psychiatric disturbances : age 20. Patient admits to a history of multiple psychiatric hospitalizations ([facility]). Diagnosed with Bipolar Disorder. Ms Carranza is currently seeing a psychiatrist at the [facility] in [facility]. Prescribed effexor 225 mg/day (not taken for more than two weeks) + topiramate 50 mg po bid + gabapentin 300 mg po tid + olanzapine 10 mg po hs + wellbutrin 150 mg po bid + vistaril 50 mg po bid. Patient indicates that she is " fairly " compliant with her medications ( with the exception of effexor). Denies history of suicide attempts. Physical/Sexual Abuse/Trauma History: Not discussed in this session. Patient declines. Additional Comment: Urine Drug Screen Results: THC-Marijuana, KASEY-Cocaine, BZO- Benzodiazepines. Noted. Mental Status Exam - Mental Status Exam Alert and Oriented to: Time, Place, Person Cognitive Function: Good Patient Appearance: Well Groomed Mood: Nervous, Withdrawn, Anxious Affect: Mood Congruent, Constricted Patient Behavior: Fatigued, Appropriate, Cooperative Speech Pattern: Clear, Appropriate Voice Loudness: Normal Thought Process: Intact, Goal Oriented Thought Disorder: Not Present Hallucinations: Denies Suicidal Ideation: Denies Homicidal Ideation: Denies Insight/Judgement: Fair Sleep: Poorly, Difficulty falling asleep Appetite: Good Gait/Station: Normal Psychiatric Findings - Problem List ([place] 1, 2,3) (1) Alcohol dependence with uncomplicated withdrawal Current Visit: Yes Status: Acute (2) Uncomplicated sedative, hypnotic or anxiolytic withdrawal Current Visit: Yes Status: Acute (3) Cannabis dependence Current Visit: Yes Status: Acute (4) Cocaine dependence Current Visit: Yes Status: Acute (5) Nicotine dependence Current Visit: Yes Status: Acute Qualifiers: Nicotine product type: cigarettes Substance use status: in withdrawal Qualified Code(s): F17.213 - Nicotine dependence, cigarettes, with withdrawal (6) Substance induced mood disorder Current Visit: Yes Status: Acute (7) Bipolar disorder Current Visit: Yes Status: Chronic (8) Insomnia Current Visit: Yes Status: Acute - Initial Treatment Plan Initial Treatment Plan: Psychoeducation. Sleep hygiene. Detoxification in progress. Group, supportive therapy. AA meetings. Measures for relapse prevention (opioid antagonist, AA fellowship, counseling) are discussed in this session. Medications resumed as follows : olanzapine 10 mg po hs + wellbutrin XL 150 mg po daily + gabapentin 300 mg po tid + topiramate 50 mg po bid + vistaril 50 mg po Q 8 hrs prn. Side effects/benefits of each medication are discussed with the patient. Ms Carranza is in agreement with this plan of care. Observation.
[2018-02-25] MEDS: OLANZapine 10 MG TABLET PO SCH (22:35)
[2018-02-25] MEDS: GABAPENTIN 300 MG CAPSULE (FP) PO SCH (22:36)
[2018-02-25] MEDS: TOPIRAMATE 25 MG TABLET (FP) PO SCH (22:36)
[2018-02-25] MEDS: hydrOXYzine PAMOATE 50 MG CAPSULE (FP) PO PRN (22:48)
[2018-02-25] MEDS: MELATONIN 5 MG TABLETS PO PRN (22:48)
[2018-02-25] MEDS: THIAMINE HCL 100 MG TABLET (FP) PO SCH (22:48)
[2018-02-25 23:33] LABS: URINE APPEARANCE TURBID; URINE BILIRUBIN NEGATIVE (<2.0 mg/dL); URINE COLOR YELLOW; URINE GLUCOSE (UA) NEGATIVE (NEGATIVE); URINE KETONE NEGATIVE (NEGATIVE); URINE LEUK ESTERASE NEGATIVE (NEGATIVE); URINE NITRITE NEGATIVE (NEGATIVE); URINE PROTEIN NEGATIVE (NEGATIVE); URINE UROBILINOGEN NEGATIVE mg/dL (0.2-1.0)
[2018-02-26] MEDS: GABAPENTIN 300 MG CAPSULE (FP) PO SCH ×3 (05:33→22:19)
[2018-02-26] MEDS: diazePAM 5 MG TABLET PO SCH ×3 (05:33→22:19)
--- NOTE | 2018-02-26 09:49 | PN ---
S CIWA - CIWA Score Nausea/Vomitin Muscle Tremors: 2 Anxiety: 2 Agitation: 1-Slight > Activity Paroxysmal Sweats: 2 Orientation: 0-Oriented Tacttile Disturbances: 1-Very Mild Itch/Numbness Auditory Disturbances: 0-None Visual Disturbances: 0-None Headache: 2-Mild CIWA-Ar Total Score: 12 [facility] Progress Note (SOAP) Subjective: Interrupted sleep, irritability and malaise Objective: 02/26/18 09:48 Vital Signs 02/26/18 02/26/18 02/26/18 03:30 06:00 09:17 Temperature 98.2 F 97.9 F Pulse Rate 67 75 Respiratory Rate Blood Pressure 100/58 L 97/58 L Laboratory Last Values Urine Color Yellow 02/25/18 15:43 Urine Appearance Turbid 02/25/18 15:43 Urine pH 6.0 (5.0-8.0) 02/25/18 15:43 Ur Specific [place] 1.020 (1.010-1.035) 02/25/18 15:43 Urine Protein Negative (NEGATIVE) 02/25/18 15:43 Urine Glucose (UA) Negative (NEGATIVE) 02/25/18 15:43 Urine Ketones Negative (NEGATIVE) 02/25/18 15:43 Urine Blood Negative (NEGATIVE) 02/25/18 15:43 Urine Nitrite Negative (NEGATIVE) 02/25/18 15:43 Urine Bilirubin Negative (<2.0 mg/dL) 02/25/18 15:43 Urine Urobilinogen Negative mg/dL (0.2-1.0) 02/25/18 15:43 Ur Leukocyte Esterase Negative (NEGATIVE) 02/25/18 15:43 UA noted, negative CBC/CMP pending Assessment: 02/26/18 09:49 Withdrawal sx Plan: Continue detox
[2018-02-26] MEDS ORDERED: buPROPion HCL 75 MG TABLET PO SCH (10:00)
[2018-02-26] MEDS: PRENATAL VITAMINS W/ FOLIC ACID TABLET (FP) PO SCH (10:19)
[2018-02-26] MEDS: TOPIRAMATE 25 MG TABLET (FP) PO SCH ×2 (10:19→22:32)
[2018-02-26] MEDS: diazePAM 5 MG TABLET PO PRN ×2 (10:20→18:03)
[2018-02-26] MEDS: NICOTINE 21 MG/24 HOURS TOPICAL PATCH TD SCH (10:20)
[2018-02-26 10:39] LABS: HEMATOCRIT 40.5 % (32.4-45.2); HEMOGLOBIN 12.7 GM/dL (10.7-15.3); MCH 28.1 pg (25.7-33.7); MCHC 31.4 g/dl (32.0-36.0); MEAN CELL VOLUME 89.3 fl (80-96); MEAN PLT VOLUME 9.9 fl (7.5-11.1); PLATELET COUNT 276 K/MM3 (134-434); RBC 4.53 M/mm3 (3.60-5.2); RDW 14.8 % (11.6-15.6); WHITE BLOOD COUNT 9.2 K/mm3 (4.0-10.0)
[2018-02-26 11:07] LABS: ALBUMIN 3.8 g/dl (3.4-5.0); ALK PHOS 61 U/L (45-117); ANION GAP 8 MMOL/L (8-16); BILIRUBIN,TOTAL 0.3 mg/dL (0.2-1); BLOOD UREA NITROGEN 14 mg/dL (7-18); CALCIUM 8.7 mg/dL (8.5-10.1); CHLORIDE 110 mmol/L (98-107); CO2 25 mmol/L (21-32); GLUCOSE,RANDOM 68 mg/dL (74-106); POTASSIUM 4.2 mmol/L (3.5-5.1); SGOT/AST 10 U/L (15-37); SGPT/ALT 17 U/L (13-61); SODIUM 142 mmol/L (136-145); TOT PROT 7.2 g/dl (6.4-8.2)
[2018-02-26] MEDS ORDERED: chlordiazePOXIDE HCL 25 MG CAPSULE PO SCH (17:00)
[2018-02-26] MEDS: OLANZapine 10 MG TABLET PO SCH (22:19)
[2018-02-26] MEDS: THIAMINE HCL 100 MG TABLET (FP) PO SCH (22:19)
[2018-02-26] MEDS: MELATONIN 5 MG TABLETS PO PRN (22:20)
[2018-02-26] MEDS: hydrOXYzine PAMOATE 50 MG CAPSULE (FP) PO PRN (22:21)
[2018-02-27] MEDS: GABAPENTIN 300 MG CAPSULE (FP) PO SCH ×3 (05:08→22:17)
[2018-02-27] MEDS: diazePAM 5 MG TABLET PO PRN ×3 (05:10→19:41)
[2018-02-27] MEDS: diazePAM 5 MG TABLET PO SCH ×2 (10:28→22:18)
[2018-02-27] MEDS: NICOTINE 21 MG/24 HOURS TOPICAL PATCH TD SCH (10:29)
[2018-02-27] MEDS: TOPIRAMATE 25 MG TABLET (FP) PO SCH ×2 (10:29→22:18)
[2018-02-27] MEDS: PRENATAL VITAMINS W/ FOLIC ACID TABLET (FP) PO SCH (10:29)
--- NOTE | 2018-02-27 15:52 | PN ---
S CIWA - CIWA Score Nausea/Vomitin-Mild Nausea/No Vomiting Muscle Tremors: 3 Anxiety: 2 Agitation: 3 Paroxysmal Sweats: 1-Minimal Palms Moist Orientation: 0-Oriented Tacttile Disturbances: 1-Very Mild Itch/Numbness Auditory Disturbances: 1-Very Mild Visual Disturbances: 0-None Headache: 1-Very Mild CIWA-Ar Total Score: 13 B[facility] Progress Note (SOAP) Subjective: anxiety tremor restlessness sweat trouble sleep at night Objective: 02/27/18 15:51 Vital Signs Temperature 99.0 F 02/27/18 13:50 Pulse Rate 89 02/27/18 13:50 Respiratory Rate 18 02/27/18 13:50 Blood Pressure 97/56 L 02/27/18 13:50 O2 Sat by Pulse Oximetry (%) Laboratory Last Values WBC 9.2 K/mm3 (4.0-10.0) 02/26/18 05:35 RBC 4.53 M/mm3 (3.60-5.2) 02/26/18 05:35 Hgb 12.7 GM/dL (10.7-15.3) 02/26/18 05:35 Hct 40.5 % (32.4-45.2) 02/26/18 05:35 MCV 89.3 fl (80-96) 02/26/18 05:35 MCH 28.1 pg (25.7-33.7) 02/26/18 05:35 MCHC 31.4 g/dl (32.0-36.0) L 02/26/18 05:35 RDW 14.8 % (11.6-15.6) 02/26/18 05:35 Plt Count 276 K/MM3 (134-434) 02/26/18 05:35 MPV 9.9 fl (7.5-11.1) 02/26/18 05:35 Sodium 142 mmol/L (136-145) 02/26/18 05:35 Potassium 4.2 mmol/L (3.5-5.1) 02/26/18 05:35 Chloride 110 mmol/L (98-107) H 02/26/18 05:35 Carbon Dioxide 25 mmol/L (21-32) 02/26/18 05:35 Anion Gap 8 MMOL/L (8-16) 02/26/18 05:35 BUN 14 mg/dL (7-18) 02/26/18 05:35 Creatinine 1.0 mg/dL (0.55-1.3) 02/26/18 05:35 Creat Clearance w eGFR > 60 (>60) 02/26/18 05:35 Random Glucose 68 mg/dL (74-106) L 02/26/18 05:35 Calcium 8.7 mg/dL (8.5-10.1) 02/26/18 05:35 Total Bilirubin 0.3 mg/dL (0.2-1) 02/26/18 05:35 AST 10 U/L (15-37) L 02/26/18 05:35 ALT 17 U/L (13-61) 02/26/18 05:35 Alkaline Phosphatase 61 U/L (45-117) 02/26/18 05:35 Total Protein 7.2 g/dl (6.4-8.2) 02/26/18 05:35 Albumin 3.8 g/dl (3.4-5.0) 02/26/18 05:35 Urine Color Yellow 02/25/18 15:43 Urine Appearance Turbid 02/25/18 15:43 Urine pH 6.0 (5.0-8.0) 02/25/18 15:43 Ur Specific [place] 1.020 (1.010-1.035) 02/25/18 15:43 Urine Protein Negative (NEGATIVE) 02/25/18 15:43 Urine Glucose (UA) Negative (NEGATIVE) 02/25/18 15:43 Urine Ketones Negative (NEGATIVE) 02/25/18 15:43 Urine Blood Negative (NEGATIVE) 02/25/18 15:43 Urine Nitrite Negative (NEGATIVE) 02/25/18 15:43 Urine Bilirubin Negative (<2.0 mg/dL) 02/25/18 15:43 Urine Urobilinogen Negative mg/dL (0.2-1.0) 02/25/18 15:43 Ur Leukocyte Esterase Negative (NEGATIVE) 02/25/18 15:43 RPR Titer Nonreactive (NONREACTIVE) 02/26/18 05:35 lab noted Assessment: 02/27/18 15:52 withdrawal sx Plan: continue detox
[2018-02-27] MEDS ORDERED: chlordiazePOXIDE 5 MG CAPSULE PO SCH (17:00)
[2018-02-27] MEDS: OLANZapine 10 MG TABLET PO SCH (22:17)
[2018-02-27] MEDS: hydrOXYzine PAMOATE 50 MG CAPSULE (FP) PO PRN (22:17)
[2018-02-27] MEDS: MELATONIN 5 MG TABLETS PO PRN (22:18)
[2018-02-27] MEDS: THIAMINE HCL 100 MG TABLET (FP) PO SCH (22:18)
[2018-02-28] MEDS: GABAPENTIN 300 MG CAPSULE (FP) PO SCH ×3 (06:01→22:16)
[2018-02-28] MEDS: diazePAM 5 MG TABLET PO PRN (06:02)
--- NOTE | 2018-02-28 09:30 | PN ---
[facility] Progress Note (SOAP) Subjective: feeling better no tremor less sweat social with peers in day room and hallway Objective: 02/28/18 09:29 Vital Signs Temperature 98.1 F 02/28/18 09:12 Pulse Rate 83 02/28/18 09:12 Respiratory Rate 16 02/28/18 09:12 Blood Pressure 100/54 L 02/28/18 09:12 O2 Sat by Pulse Oximetry (%) Laboratory Last Values WBC 9.2 K/mm3 (4.0-10.0) 02/26/18 05:35 RBC 4.53 M/mm3 (3.60-5.2) 02/26/18 05:35 Hgb 12.7 GM/dL (10.7-15.3) 02/26/18 05:35 Hct 40.5 % (32.4-45.2) 02/26/18 05:35 MCV 89.3 fl (80-96) 02/26/18 05:35 MCH 28.1 pg (25.7-33.7) 02/26/18 05:35 MCHC 31.4 g/dl (32.0-36.0) L 02/26/18 05:35 RDW 14.8 % (11.6-15.6) 02/26/18 05:35 Plt Count 276 K/MM3 (134-434) 02/26/18 05:35 MPV 9.9 fl (7.5-11.1) 02/26/18 05:35 Sodium 142 mmol/L (136-145) 02/26/18 05:35 Potassium 4.2 mmol/L (3.5-5.1) 02/26/18 05:35 Chloride 110 mmol/L (98-107) H 02/26/18 05:35 Carbon Dioxide 25 mmol/L (21-32) 02/26/18 05:35 Anion Gap 8 MMOL/L (8-16) 02/26/18 05:35 BUN 14 mg/dL (7-18) 02/26/18 05:35 Creatinine 1.0 mg/dL (0.55-1.3) 02/26/18 05:35 Creat Clearance w eGFR > 60 (>60) 02/26/18 05:35 Random Glucose 68 mg/dL (74-106) L 02/26/18 05:35 Calcium 8.7 mg/dL (8.5-10.1) 02/26/18 05:35 Total Bilirubin 0.3 mg/dL (0.2-1) 02/26/18 05:35 AST 10 U/L (15-37) L 02/26/18 05:35 ALT 17 U/L (13-61) 02/26/18 05:35 Alkaline Phosphatase 61 U/L (45-117) 02/26/18 05:35 Total Protein 7.2 g/dl (6.4-8.2) 02/26/18 05:35 Albumin 3.8 g/dl (3.4-5.0) 02/26/18 05:35 Urine Color Yellow 02/25/18 15:43 Urine Appearance Turbid 02/25/18 15:43 Urine pH 6.0 (5.0-8.0) 02/25/18 15:43 Ur Specific [place] 1.020 (1.010-1.035) 02/25/18 15:43 Urine Protein Negative (NEGATIVE) 02/25/18 15:43 Urine Glucose (UA) Negative (NEGATIVE) 02/25/18 15:43 Urine Ketones Negative (NEGATIVE) 02/25/18 15:43 Urine Blood Negative (NEGATIVE) 02/25/18 15:43 Urine Nitrite Negative (NEGATIVE) 02/25/18 15:43 Urine Bilirubin Negative (<2.0 mg/dL) 02/25/18 15:43 Urine Urobilinogen Negative mg/dL (0.2-1.0) 02/25/18 15:43 Ur Leukocyte Esterase Negative (NEGATIVE) 02/25/18 15:43 RPR Titer Nonreactive (NONREACTIVE) 02/26/18 05:35 lab noted Assessment: 02/28/18 09:29 mild withdrawal sx Plan: medically supervised detox
[2018-02-28] MEDS: diazePAM 5 MG TABLET PO SCH ×2 (10:08→22:17)
[2018-02-28] MEDS: NICOTINE 21 MG/24 HOURS TOPICAL PATCH TD SCH (10:09)
[2018-02-28] MEDS: PRENATAL VITAMINS W/ FOLIC ACID TABLET (FP) PO SCH (10:09)
[2018-02-28] MEDS: TOPIRAMATE 25 MG TABLET (FP) PO SCH ×2 (10:09→22:17)
[2018-02-28] MEDS: hydrOXYzine PAMOATE 50 MG CAPSULE (FP) PO PRN ×2 (15:13→22:19)
[2018-02-28] MEDS ORDERED: chlordiazePOXIDE HCL 10 MG CAPSULE PO SCH (17:00)
[2018-02-28] MEDS: OLANZapine 10 MG TABLET PO SCH (22:16)
[2018-02-28] MEDS: THIAMINE HCL 100 MG TABLET (FP) PO SCH (22:17)
[2018-03-01] MEDS: GABAPENTIN 300 MG CAPSULE (FP) PO SCH ×3 (05:58→21:42)
[2018-03-01] MEDS ORDERED: diazePAM 5 MG TABLET PO SCH (10:00)
[2018-03-01] MEDS: TOPIRAMATE 25 MG TABLET (FP) PO SCH ×2 (10:52→21:42)
[2018-03-01] MEDS: PRENATAL VITAMINS W/ FOLIC ACID TABLET (FP) PO SCH (10:52)
[2018-03-01] MEDS: NICOTINE 21 MG/24 HOURS TOPICAL PATCH TD SCH (10:52)
[2018-03-01] MEDS: hydrOXYzine PAMOATE 50 MG CAPSULE (FP) PO PRN ×3 (10:54→21:42)
[2018-03-01 11:17] VITALS: BMI 27.8
--- NOTE | 2018-03-01 11:40 | HP ---
[facility] Rehab Assess/Revision - Admission History Admitted to Rehab from: [address] [place] Date of Admission to Rehab: 03/01/18 - Vital signs Vital Signs: Vital Signs Period Temp Pulse Resp BP Sys/Mccarthy Pulse Ox Last 24 Hr 97.7 F-98.7 F 82-110 16-18 100-118/52-72 - Findings Detox History & Physical reviewed: Yes Concur with findings: Yes Comments/Additional Findings: transferred from [facility] to rehab admission as per protocol Inpatient Rehab Admission - Initial Determination Are CD services needed?: Yes Free of communicable disease: Yes Not in need of hospitalization: Yes - Rehab Admission Criteria Previous failed treatment: Yes Poor recovery environment: Yes Comorbidities: Yes Lacks judgement: No Patient is meeting Inpatient Rehab admission criteria:: Yes
--- NOTE | 2018-03-01 15:53 | PN ---
[facility] Progress Note Note: pt c/o facial rash which did not start in rehab. Reports getting cream in detox and wants to continue with the cream. Vital Signs 03/01/18 03/01/18 03/01/18 09:30 10:28 11:16 Temperature 98.6 F 98.7 F 98.7 F Pulse Rate 98 H 110 H 110 H Respiratory 18 18 18 Rate Blood Pressure 100/52 L 118/70 118/70 facial rash erruptions Face: multiple red papular rash on face. plan;hydrocortisone cream 1% apply to face as directed.
[2018-03-01] MEDS: THIAMINE HCL 100 MG TABLET (FP) PO SCH (21:42)
[2018-03-01] MEDS: OLANZapine 10 MG TABLET PO SCH (21:42)
[2018-03-01] MEDS: MELATONIN 5 MG TABLETS PO PRN (21:43)
[2018-03-01] MEDS: BENZOYL PEROXIDE 5% 60 GM GEL..GRAM. TP SCH (21:44)
[2018-03-01] MEDS ORDERED: HYDROCORTISONE 1% TOPICAL CREAM 30 GM TUBE TP SCH (22:00)
[2018-03-02] MEDS: GABAPENTIN 300 MG CAPSULE (FP) PO SCH ×3 (06:10→21:18)
[2018-03-02] MEDS: NICOTINE 21 MG/24 HOURS TOPICAL PATCH TD SCH (09:43)
[2018-03-02] MEDS: PRENATAL VITAMINS W/ FOLIC ACID TABLET (FP) PO SCH (09:44)
[2018-03-02] MEDS: BENZOYL PEROXIDE 5% 60 GM GEL..GRAM. TP SCH (09:44)
[2018-03-02] MEDS: TOPIRAMATE 25 MG TABLET (FP) PO SCH (09:45)
--- NOTE | 2018-03-02 13:36 | HP ---
Psychiatrist Admission - Data Date of interview: 03/02/18 Admission source: [facility] Identifying data: This is the third [facility] admission for this 37 years old single , mother of 2 (children reside with the patient's mother), unemployed on SSD, domiciled Medical History: Significant for history of treatment for trichomoniasis and c- section x1 in 2002. Smokes 14 cigarettes daily Psychiatric History: Reports that her onset of psychiatric disturbances was at age 20. Reportsbeing diagnosed with Bipolar Disorder and has had history of multiple psychiatric hospitalizations ([facility] [place],[facility]). Reports that she is currently seeing a psychiatrist at [facility] in [facility] and she is prescribed Effexor 225 mg/day (not taken for more than two weeks) + Topiramate 50 mg daily & 100 mg HS, Gabapentin 300 mg po BID and Olanzapine 10 mg po HS + Wellbutrin XL 150 mg po daily and vistaril 50 mg po BID. Patient indicates that she is " fairly " compliant with her medications (with the exception of effexor). Patient was seen by Dr Resendiz on 02/25/18 and she was prescibed Wellbutrin XL 150 mg po daily, Topamax 50 mg po BID, Zyprexa 10 mg po HS, Gabapentin 300 mg po TID and Vistaril 50 mg po Q 6 hrs prn for anxiety. Told scientific writer that she was taking Gabapentin 300 mg po BID instead of TID and Topamax 50 mg daily & 100 mg HS instead og 50m mg po BID. Denies history of suicide attempts. Physical/Sexual Abuse/Trauma History: Denies history of emotional, physical or sexual abuse as well as DV relationship. Additional Comment: Denies criminal history Vital Signs: Vital Signs - 24 hr 03/02/18 03/02/18 03/02/18 03:30 07:17 07:19 Temperature 98.2 F 98.2 F Pulse Rate 91 H 91 H Respiratory 18 18 18 Rate Blood Pressure 108/66 108/66 Allergies/Adverse Reactions: Allergies Allergy/AdvReac Type Severity Reaction Status Date / Time Penicillins Allergy Severe Hives Verified 02/25/18 09:36 Date of last physical exam: 02/25/18 Concur with the findings of this exam: Yes - Substance Abuse/Tx History Hx Alcohol Use: Yes Hx Substance Use: Yes Substance Use Type: Alcohol (Started drinking alcohol at age 17, consumes 3x 24oz daily. Last drank on 02/24/18), Cocaine (Started smoking crack cocaine at age 23. consumes $60 worth daily. Last smoked on 02/24/18), Tranquilizers ( Started using xanax at age 37, consumes 2 mg daily. Last used on 02/24/18) Hx Substance Use Treatment: Yes (one previous inpt detox & 2 inpt rehab admissions @ [facility]) Mental Status Exam - Mental Status Exam Alert and Oriented to: Time, Place, Person Cognitive Function: Fair Patient Appearance: Well Groomed Mood: Depressed (mildly) Affect: Appropriate Patient Behavior: Cooperative Speech Pattern: Clear Voice Loudness: Normal Thought Process: Intact Thought Disorder: Not Present Hallucinations: Denies Suicidal Ideation: Denies Homicidal Ideation: Denies Insight/Judgement: Fair Sleep: Poorly Appetite: Good Muscle strength/Tone: Normal Gait/Station: Normal Psychiatric Findings - Problem List ([place] 1, 2,3) (1) Alcohol dependence Current Visit: Yes Status: Acute (2) Cocaine dependence Current Visit: Yes Status: Acute (3) Sedative hypnotic or anxiolytic dependence Current Visit: Yes Status: Acute (4) Nicotine dependence Current Visit: Yes Status: Chronic Qualifiers: Nicotine product type: cigarettes Substance use status: in withdrawal Qualified Code(s): F17.213 - Nicotine dependence, cigarettes, with withdrawal (5) Bipolar disorder Current Visit: Yes Status: Chronic (6) Substance induced mood disorder Current Visit: Yes Status: Acute (7) Substance-induced sleep disorder Current Visit: Yes Status: Acute (8) Acne Current Visit: No Status: Chronic Qualifiers: Acne type: unspecified acne Qualified Code(s): L70.9 - Acne, unspecified - Initial Treatment Plan Initial Treatment Plan: 1) Continue Wellbutrin XL 150 mg po daily, Zyprexa 10 mg po HS, Effexor XR 150 mg po daily. 2) Start Gabapentin 300 mg po BID, Topamax 50 mg daily & 100 mg HS and Belsomra 10 mmg po HS prn for insomnia. 3) Monotor progress
[2018-03-02] MEDS: VENLAFAXINE HCL 150 MG E.R. CAPSULE PO SCH (15:23)
[2018-03-02] MEDS: TOPIRAMATE 100 MG TABLET PO SCH (21:19)
[2018-03-02] MEDS: OLANZapine 10 MG TABLET PO SCH (21:19)
[2018-03-02] MEDS: THIAMINE HCL 100 MG TABLET (FP) PO SCH (21:19)
[2018-03-02] MEDS: hydrOXYzine PAMOATE 50 MG CAPSULE (FP) PO PRN (21:20)
[2018-03-02] MEDS: MELATONIN 5 MG TABLETS PO PRN (21:20)
[2018-03-02] MEDS: SUVOREXANT 10 MG TABLET PO PRN (21:22)
[2018-03-03] MEDS ORDERED: PT OWN MED DRAWER 7, Y5N ONE (08:51)
[2018-03-03] MEDS: NICOTINE 21 MG/24 HOURS TOPICAL PATCH TD SCH (10:27)
[2018-03-03] MEDS: PRENATAL VITAMINS W/ FOLIC ACID TABLET (FP) PO SCH (10:27)
[2018-03-03] MEDS: BENZOYL PEROXIDE 5% 60 GM GEL..GRAM. TP SCH (10:27)
[2018-03-03] MEDS: TOPIRAMATE 25 MG TABLET (FP) PO SCH (10:28)
[2018-03-03] MEDS: VENLAFAXINE HCL 150 MG E.R. CAPSULE PO SCH (10:28)
[2018-03-03] MEDS: GABAPENTIN 300 MG CAPSULE (FP) PO SCH ×2 (10:28→21:39)
[2018-03-03] MEDS: THIAMINE HCL 100 MG TABLET (FP) PO SCH (21:39)
[2018-03-03] MEDS: TOPIRAMATE 100 MG TABLET PO SCH (21:39)
[2018-03-03] MEDS: OLANZapine 10 MG TABLET PO SCH (21:39)
[2018-03-03] MEDS: hydrOXYzine PAMOATE 50 MG CAPSULE (FP) PO PRN (21:40)
[2018-03-03] MEDS: SUVOREXANT 10 MG TABLET PO PRN (21:40)
[2018-03-03] MEDS: MELATONIN 5 MG TABLETS PO PRN (21:40)
[2018-03-04] MEDS: BENZOYL PEROXIDE 5% 60 GM GEL..GRAM. TP SCH (10:31)
[2018-03-04] MEDS: NICOTINE 21 MG/24 HOURS TOPICAL PATCH TD SCH (10:31)
[2018-03-04] MEDS: GABAPENTIN 300 MG CAPSULE (FP) PO SCH ×2 (10:31→22:02)
[2018-03-04] MEDS: VENLAFAXINE HCL 150 MG E.R. CAPSULE PO SCH (10:31)
[2018-03-04] MEDS: TOPIRAMATE 25 MG TABLET (FP) PO SCH (10:32)
[2018-03-04] MEDS: PRENATAL VITAMINS W/ FOLIC ACID TABLET (FP) PO SCH (10:32)
[2018-03-04] MEDS: OLANZapine 10 MG TABLET PO SCH (22:02)
[2018-03-04] MEDS: THIAMINE HCL 100 MG TABLET (FP) PO SCH (22:02)
[2018-03-04] MEDS: TOPIRAMATE 100 MG TABLET PO SCH (22:02)
[2018-03-04] MEDS: MELATONIN 5 MG TABLETS PO PRN (22:03)
[2018-03-04] MEDS: SUVOREXANT 10 MG TABLET PO PRN (22:04)
[2018-03-05] MEDS: BENZOYL PEROXIDE 5% 60 GM GEL..GRAM. TP SCH (10:24)
[2018-03-05] MEDS: NICOTINE 21 MG/24 HOURS TOPICAL PATCH TD SCH (10:24)
[2018-03-05] MEDS: VENLAFAXINE HCL 150 MG E.R. CAPSULE PO SCH (10:25)
[2018-03-05] MEDS: TOPIRAMATE 25 MG TABLET (FP) PO SCH (10:25)
[2018-03-05] MEDS: GABAPENTIN 300 MG CAPSULE (FP) PO SCH ×2 (10:25→21:50)
[2018-03-05] MEDS: PRENATAL VITAMINS W/ FOLIC ACID TABLET (FP) PO SCH (10:25)
[2018-03-05] MEDS: hydrOXYzine PAMOATE 50 MG CAPSULE (FP) PO PRN ×2 (13:21→21:51)
[2018-03-05] MEDS: SUVOREXANT 10 MG TABLET PO PRN (21:50)
[2018-03-05] MEDS: OLANZapine 10 MG TABLET PO SCH (21:50)
[2018-03-05] MEDS: TOPIRAMATE 100 MG TABLET PO SCH (21:50)
[2018-03-05] MEDS: THIAMINE HCL 100 MG TABLET (FP) PO SCH (21:50)
[2018-03-05] MEDS: MELATONIN 5 MG TABLETS PO PRN (21:52)
[2018-03-06] MEDS: PRENATAL VITAMINS W/ FOLIC ACID TABLET (FP) PO SCH (10:25)
[2018-03-06] MEDS: NICOTINE 21 MG/24 HOURS TOPICAL PATCH TD SCH (10:25)
[2018-03-06] MEDS: BENZOYL PEROXIDE 5% 60 GM GEL..GRAM. TP SCH (10:25)
[2018-03-06] MEDS: TOPIRAMATE 25 MG TABLET (FP) PO SCH (10:25)
[2018-03-06] MEDS: VENLAFAXINE HCL 150 MG E.R. CAPSULE PO SCH (10:26)
[2018-03-06] MEDS: GABAPENTIN 300 MG CAPSULE (FP) PO SCH ×2 (10:26→21:30)
[2018-03-06] MEDS: hydrOXYzine PAMOATE 50 MG CAPSULE (FP) PO PRN ×2 (14:17→21:30)
[2018-03-06] MEDS: OLANZapine 10 MG TABLET PO SCH (21:30)
[2018-03-06] MEDS: TOPIRAMATE 100 MG TABLET PO SCH (21:30)
[2018-03-06] MEDS: THIAMINE HCL 100 MG TABLET (FP) PO SCH (21:30)
[2018-03-06] MEDS: MELATONIN 5 MG TABLETS PO PRN (21:31)
[2018-03-07] MEDS ORDERED: PT OWN MED DRAWER 7, Y5N ONE ×2 (08:56→08:57)
[2018-03-07] MEDS: BENZOYL PEROXIDE 5% 60 GM GEL..GRAM. TP SCH (10:31)
[2018-03-07] MEDS: NICOTINE 21 MG/24 HOURS TOPICAL PATCH TD SCH (10:31)
[2018-03-07] MEDS: PRENATAL VITAMINS W/ FOLIC ACID TABLET (FP) PO SCH (10:32)
[2018-03-07] MEDS: GABAPENTIN 300 MG CAPSULE (FP) PO SCH ×2 (10:32→21:30)
[2018-03-07] MEDS: TOPIRAMATE 25 MG TABLET (FP) PO SCH (10:32)
[2018-03-07] MEDS: VENLAFAXINE HCL 150 MG E.R. CAPSULE PO SCH (10:34)
[2018-03-07] MEDS: hydrOXYzine PAMOATE 50 MG CAPSULE (FP) PO PRN (21:30)
[2018-03-07] MEDS: TOPIRAMATE 100 MG TABLET PO SCH (21:30)
[2018-03-07] MEDS: THIAMINE HCL 100 MG TABLET (FP) PO SCH (21:30)
[2018-03-07] MEDS: OLANZapine 10 MG TABLET PO SCH (21:30)
[2018-03-07] MEDS: SUVOREXANT 15 MG TABLET PO PRN (21:30)
[2018-03-07] MEDS: MELATONIN 5 MG TABLETS PO PRN (21:31)
[2018-03-08] MEDS: BENZOYL PEROXIDE 5% 60 GM GEL..GRAM. TP SCH (10:25)
[2018-03-08] MEDS: NICOTINE 21 MG/24 HOURS TOPICAL PATCH TD SCH (10:25)
[2018-03-08] MEDS: PRENATAL VITAMINS W/ FOLIC ACID TABLET (FP) PO SCH (10:25)
[2018-03-08] MEDS: GABAPENTIN 300 MG CAPSULE (FP) PO SCH ×2 (10:25→21:47)
[2018-03-08] MEDS: TOPIRAMATE 25 MG TABLET (FP) PO SCH (10:26)
[2018-03-08] MEDS: VENLAFAXINE HCL 150 MG E.R. CAPSULE PO SCH (10:26)
[2018-03-08] MEDS: hydrOXYzine PAMOATE 50 MG CAPSULE (FP) PO PRN (10:28)
[2018-03-08] MEDS ORDERED: COLLOIDAL OATMEAL 1 BAR EACH TP PRN (10:38)
[2018-03-08] MEDS: TOPIRAMATE 100 MG TABLET PO SCH (21:47)
[2018-03-08] MEDS: THIAMINE HCL 100 MG TABLET (FP) PO SCH (21:47)
[2018-03-08] MEDS: OLANZapine 10 MG TABLET PO SCH (21:47)
[2018-03-08] MEDS: SUVOREXANT 15 MG TABLET PO PRN (21:47)
[2018-03-08] MEDS: MELATONIN 5 MG TABLETS PO PRN (21:47)
[2018-03-09] MEDS ORDERED: PT OWN MED DRAWER 7, Y5N ONE (08:40)
[2018-03-09] MEDS: GABAPENTIN 300 MG CAPSULE (FP) PO SCH ×2 (10:30→21:33)
[2018-03-09] MEDS: NICOTINE 21 MG/24 HOURS TOPICAL PATCH TD SCH (10:30)
[2018-03-09] MEDS: VENLAFAXINE HCL 150 MG E.R. CAPSULE PO SCH (10:30)
[2018-03-09] MEDS: BENZOYL PEROXIDE 5% 60 GM GEL..GRAM. TP SCH (10:30)
[2018-03-09] MEDS: PRENATAL VITAMINS W/ FOLIC ACID TABLET (FP) PO SCH (10:30)
[2018-03-09] MEDS: TOPIRAMATE 25 MG TABLET (FP) PO SCH (10:31)
[2018-03-09] MEDS: hydrOXYzine PAMOATE 50 MG CAPSULE (FP) PO PRN (21:33)
[2018-03-09] MEDS: THIAMINE HCL 100 MG TABLET (FP) PO SCH (21:33)
[2018-03-09] MEDS: TOPIRAMATE 100 MG TABLET PO SCH (21:33)
[2018-03-09] MEDS: OLANZapine 10 MG TABLET PO SCH (21:33)
[2018-03-09] MEDS: SUVOREXANT 15 MG TABLET PO PRN (21:34)
[2018-03-09] MEDS: MELATONIN 5 MG TABLETS PO PRN (21:34)
[2018-03-10] MEDS: VENLAFAXINE HCL 150 MG E.R. CAPSULE PO SCH (10:13)
[2018-03-10] MEDS: GABAPENTIN 300 MG CAPSULE (FP) PO SCH ×2 (10:13→21:14)
[2018-03-10] MEDS: PRENATAL VITAMINS W/ FOLIC ACID TABLET (FP) PO SCH (10:13)
[2018-03-10] MEDS: BENZOYL PEROXIDE 5% 60 GM GEL..GRAM. TP SCH (10:13)
[2018-03-10] MEDS: TOPIRAMATE 25 MG TABLET (FP) PO SCH (10:14)
[2018-03-10] MEDS: NICOTINE 21 MG/24 HOURS TOPICAL PATCH TD SCH (10:14)
--- NOTE | 2018-03-10 11:37 | PN ---
[facility] Progress Note Note: Psychiatric nurse practitioner note: Belsomra 15mg renewed X3 days. Verbal consent given.
[2018-03-10] MEDS: TOPIRAMATE 100 MG TABLET PO SCH (21:14)
[2018-03-10] MEDS: hydrOXYzine PAMOATE 50 MG CAPSULE (FP) PO PRN (21:14)
[2018-03-10] MEDS: THIAMINE HCL 100 MG TABLET (FP) PO SCH (21:14)
[2018-03-10] MEDS: OLANZapine 10 MG TABLET PO SCH (21:14)
[2018-03-10] MEDS: MELATONIN 5 MG TABLETS PO PRN (21:15)
[2018-03-10] MEDS: SUVOREXANT 15 MG TABLET PO PRN (21:16)
[2018-03-11] MEDS: VENLAFAXINE HCL 150 MG E.R. CAPSULE PO SCH (10:12)
[2018-03-11] MEDS: PRENATAL VITAMINS W/ FOLIC ACID TABLET (FP) PO SCH (10:13)
[2018-03-11] MEDS: TOPIRAMATE 25 MG TABLET (FP) PO SCH (10:13)
[2018-03-11] MEDS: GABAPENTIN 300 MG CAPSULE (FP) PO SCH ×2 (10:13→21:18)
[2018-03-11] MEDS: NICOTINE 21 MG/24 HOURS TOPICAL PATCH TD SCH (10:13)
[2018-03-11] MEDS: BENZOYL PEROXIDE 5% 60 GM GEL..GRAM. TP SCH (10:14)
[2018-03-11] MEDS ORDERED: PT OWN MED DRAWER 7, Y5N ONE ×2 (10:18→10:39)
[2018-03-11] MEDS: hydrOXYzine PAMOATE 50 MG CAPSULE (FP) PO PRN (21:18)
[2018-03-11] MEDS: OLANZapine 10 MG TABLET PO SCH (21:18)
[2018-03-11] MEDS: TOPIRAMATE 100 MG TABLET PO SCH (21:18)
[2018-03-11] MEDS: THIAMINE HCL 100 MG TABLET (FP) PO SCH (21:18)
[2018-03-11] MEDS: MELATONIN 5 MG TABLETS PO PRN (21:18)
[2018-03-11] MEDS: SUVOREXANT 15 MG TABLET PO PRN (21:19)
[2018-03-12] MEDS ORDERED: PT OWN MED DRAWER 7, Y5N ONE (08:50)
[2018-03-12] MEDS: BENZOYL PEROXIDE 5% 60 GM GEL..GRAM. TP SCH (10:28)
[2018-03-12] MEDS: GABAPENTIN 300 MG CAPSULE (FP) PO SCH ×2 (10:29→21:28)
[2018-03-12] MEDS: PRENATAL VITAMINS W/ FOLIC ACID TABLET (FP) PO SCH (10:29)
[2018-03-12] MEDS: VENLAFAXINE HCL 150 MG E.R. CAPSULE PO SCH (10:29)
[2018-03-12] MEDS: NICOTINE 21 MG/24 HOURS TOPICAL PATCH TD SCH (10:29)
[2018-03-12] MEDS: TOPIRAMATE 25 MG TABLET (FP) PO SCH (10:29)
[2018-03-12] MEDS: TOPIRAMATE 100 MG TABLET PO SCH (21:28)
[2018-03-12] MEDS: THIAMINE HCL 100 MG TABLET (FP) PO SCH (21:28)
[2018-03-12] MEDS: MELATONIN 5 MG TABLETS PO PRN (21:29)
[2018-03-12] MEDS: OLANZapine 10 MG TABLET PO SCH (21:29)
[2018-03-12] MEDS: hydrOXYzine PAMOATE 50 MG CAPSULE (FP) PO PRN (21:29)
[2018-03-12] MEDS: SUVOREXANT 15 MG TABLET PO PRN (21:29)
[2018-03-13] MEDS: NICOTINE 21 MG/24 HOURS TOPICAL PATCH TD SCH (10:25)
[2018-03-13] MEDS: GABAPENTIN 300 MG CAPSULE (FP) PO SCH ×2 (10:25→21:39)
[2018-03-13] MEDS: PRENATAL VITAMINS W/ FOLIC ACID TABLET (FP) PO SCH (10:25)
[2018-03-13] MEDS: BENZOYL PEROXIDE 5% 60 GM GEL..GRAM. TP SCH (10:25)
[2018-03-13] MEDS: VENLAFAXINE HCL 150 MG E.R. CAPSULE PO SCH (10:25)
[2018-03-13] MEDS: TOPIRAMATE 25 MG TABLET (FP) PO SCH (10:26)
[2018-03-13] MEDS: HYDROCORTISONE 0.5% TOPICAL OINTMENT TUBE TP PRN (21:38)
[2018-03-13] MEDS: OLANZapine 10 MG TABLET PO SCH (21:39)
[2018-03-13] MEDS: TOPIRAMATE 100 MG TABLET PO SCH (21:39)
[2018-03-13] MEDS: SUVOREXANT 15 MG TABLET PO PRN (21:39)
[2018-03-13] MEDS: THIAMINE HCL 100 MG TABLET (FP) PO SCH (21:39)
[2018-03-13] MEDS: MELATONIN 5 MG TABLETS PO PRN (21:40)
[2018-03-13] MEDS: hydrOXYzine PAMOATE 50 MG CAPSULE (FP) PO PRN (21:40)
[2018-03-14] MEDS ORDERED: PT OWN MED DRAWER 7, Y5N ONE (08:52)
[2018-03-14] MEDS: NICOTINE 21 MG/24 HOURS TOPICAL PATCH TD SCH (10:31)
[2018-03-14] MEDS: PRENATAL VITAMINS W/ FOLIC ACID TABLET (FP) PO SCH (10:32)
[2018-03-14] MEDS: BENZOYL PEROXIDE 5% 60 GM GEL..GRAM. TP SCH (10:32)
[2018-03-14] MEDS: VENLAFAXINE HCL 150 MG E.R. CAPSULE PO SCH (10:32)
[2018-03-14] MEDS: GABAPENTIN 300 MG CAPSULE (FP) PO SCH ×2 (10:32→21:25)
[2018-03-14] MEDS: TOPIRAMATE 25 MG TABLET (FP) PO SCH (10:33)
[2018-03-14] MEDS: TOPIRAMATE 100 MG TABLET PO SCH (21:25)
[2018-03-14] MEDS: OLANZapine 10 MG TABLET PO SCH (21:25)
[2018-03-14] MEDS: THIAMINE HCL 100 MG TABLET (FP) PO SCH (21:25)
[2018-03-14] MEDS: SUVOREXANT 10 MG TABLET PO PRN (21:27)
[2018-03-14] MEDS: hydrOXYzine PAMOATE 50 MG CAPSULE (FP) PO PRN (21:27)
[2018-03-15] MEDS: PRENATAL VITAMINS W/ FOLIC ACID TABLET (FP) PO SCH (10:08)
[2018-03-15] MEDS: GABAPENTIN 300 MG CAPSULE (FP) PO SCH ×2 (10:08→21:18)
[2018-03-15] MEDS: VENLAFAXINE HCL 150 MG E.R. CAPSULE PO SCH (10:08)
[2018-03-15] MEDS: BENZOYL PEROXIDE 5% 60 GM GEL..GRAM. TP SCH (10:08)
[2018-03-15] MEDS: TOPIRAMATE 25 MG TABLET (FP) PO SCH (10:08)
[2018-03-15] MEDS: NICOTINE 21 MG/24 HOURS TOPICAL PATCH TD SCH (10:09)
[2018-03-15] MEDS: OLANZapine 10 MG TABLET PO SCH (21:18)
[2018-03-15] MEDS: hydrOXYzine PAMOATE 50 MG CAPSULE (FP) PO PRN (21:18)
[2018-03-15] MEDS: THIAMINE HCL 100 MG TABLET (FP) PO SCH (21:18)
[2018-03-15] MEDS: TOPIRAMATE 100 MG TABLET PO SCH (21:18)
[2018-03-15] MEDS: SUVOREXANT 10 MG TABLET PO PRN (21:19)
[2018-03-15] MEDS: MELATONIN 5 MG TABLETS PO PRN (21:19)
[2018-03-16] MEDS: NICOTINE 21 MG/24 HOURS TOPICAL PATCH TD SCH (10:04)
[2018-03-16] MEDS: PRENATAL VITAMINS W/ FOLIC ACID TABLET (FP) PO SCH (10:05)
[2018-03-16] MEDS: VENLAFAXINE HCL 150 MG E.R. CAPSULE PO SCH (10:05)
[2018-03-16] MEDS: TOPIRAMATE 25 MG TABLET (FP) PO SCH (10:05)
[2018-03-16] MEDS: GABAPENTIN 300 MG CAPSULE (FP) PO SCH ×2 (10:05→21:25)
[2018-03-16] MEDS: BENZOYL PEROXIDE 5% 60 GM GEL..GRAM. TP SCH (10:06)
[2018-03-16] MEDS: OLANZapine 10 MG TABLET PO SCH (21:25)
[2018-03-16] MEDS: TOPIRAMATE 100 MG TABLET PO SCH (21:25)
[2018-03-16] MEDS: hydrOXYzine PAMOATE 50 MG CAPSULE (FP) PO PRN (21:25)
[2018-03-16] MEDS: THIAMINE HCL 100 MG TABLET (FP) PO SCH (21:26)
[2018-03-16] MEDS: SUVOREXANT 10 MG TABLET PO PRN (21:26)
[2018-03-16] MEDS: MELATONIN 5 MG TABLETS PO PRN (21:26)
[2018-03-17] MEDS: GABAPENTIN 300 MG CAPSULE (FP) PO SCH ×2 (10:02→21:21)
[2018-03-17] MEDS: TOPIRAMATE 25 MG TABLET (FP) PO SCH (10:02)
[2018-03-17] MEDS: VENLAFAXINE HCL 150 MG E.R. CAPSULE PO SCH (10:02)
[2018-03-17] MEDS: BENZOYL PEROXIDE 5% 60 GM GEL..GRAM. TP SCH (10:02)
[2018-03-17] MEDS: PRENATAL VITAMINS W/ FOLIC ACID TABLET (FP) PO SCH (10:02)
[2018-03-17] MEDS: NICOTINE 21 MG/24 HOURS TOPICAL PATCH TD SCH (10:02)
[2018-03-17] MEDS: TOPIRAMATE 100 MG TABLET PO SCH (21:21)
[2018-03-17] MEDS: OLANZapine 10 MG TABLET PO SCH (21:21)
[2018-03-17] MEDS: MELATONIN 5 MG TABLETS PO PRN (21:21)
[2018-03-17] MEDS: THIAMINE HCL 100 MG TABLET (FP) PO SCH (21:21)
[2018-03-18] MEDS: PRENATAL VITAMINS W/ FOLIC ACID TABLET (FP) PO SCH (10:10)
[2018-03-18] MEDS: NICOTINE 21 MG/24 HOURS TOPICAL PATCH TD SCH (10:10)
[2018-03-18] MEDS: GABAPENTIN 300 MG CAPSULE (FP) PO SCH ×2 (10:11→21:16)
[2018-03-18] MEDS: TOPIRAMATE 25 MG TABLET (FP) PO SCH (10:11)
[2018-03-18] MEDS: VENLAFAXINE HCL 150 MG E.R. CAPSULE PO SCH (10:11)
[2018-03-18] MEDS: BENZOYL PEROXIDE 5% 60 GM GEL..GRAM. TP SCH (10:13)
[2018-03-18] MEDS: hydrOXYzine PAMOATE 50 MG CAPSULE (FP) PO PRN ×2 (14:33→21:16)
--- NOTE | 2018-03-18 15:41 | PN ---
[facility] Progress Note Note: Psychiatry Attending's note : Called for renewal of belsomra. Chart reviewed. Medication is confirmed. Well tolerated. No reported adverse events. Belsomra 10 mg po hs prn. Renewed order.
[2018-03-18] MEDS: OLANZapine 10 MG TABLET PO SCH (21:16)
[2018-03-18] MEDS: TOPIRAMATE 100 MG TABLET PO SCH (21:16)
[2018-03-18] MEDS: THIAMINE HCL 100 MG TABLET (FP) PO SCH (21:16)
[2018-03-18] MEDS: MELATONIN 5 MG TABLETS PO PRN (21:18)
[2018-03-18] MEDS: SUVOREXANT 10 MG TABLET PO PRN (21:19)
[2018-03-19] MEDS: GABAPENTIN 300 MG CAPSULE (FP) PO SCH ×2 (10:04→21:33)
[2018-03-19] MEDS: VENLAFAXINE HCL 150 MG E.R. CAPSULE PO SCH (10:04)
[2018-03-19] MEDS: TOPIRAMATE 25 MG TABLET (FP) PO SCH (10:04)
[2018-03-19] MEDS: PRENATAL VITAMINS W/ FOLIC ACID TABLET (FP) PO SCH (10:04)
[2018-03-19] MEDS: NICOTINE 21 MG/24 HOURS TOPICAL PATCH TD SCH (10:04)
[2018-03-19] MEDS: BENZOYL PEROXIDE 5% 60 GM GEL..GRAM. TP SCH (10:05)
[2018-03-19] MEDS: HYDROCORTISONE 0.5% TOPICAL OINTMENT TUBE TP PRN (10:05)
[2018-03-19] MEDS: THIAMINE HCL 100 MG TABLET (FP) PO SCH (21:33)
[2018-03-19] MEDS: OLANZapine 10 MG TABLET PO SCH (21:33)
[2018-03-19] MEDS: TOPIRAMATE 100 MG TABLET PO SCH (21:33)
[2018-03-19] MEDS: SUVOREXANT 10 MG TABLET PO PRN (21:35)
[2018-03-19] MEDS: hydrOXYzine PAMOATE 50 MG CAPSULE (FP) PO PRN (21:35)
[2018-03-20] MEDS: GABAPENTIN 300 MG CAPSULE (FP) PO SCH ×2 (10:07→21:03)
[2018-03-20] MEDS: VENLAFAXINE HCL 150 MG E.R. CAPSULE PO SCH (10:07)
[2018-03-20] MEDS: PRENATAL VITAMINS W/ FOLIC ACID TABLET (FP) PO SCH (10:07)
[2018-03-20] MEDS: NICOTINE 21 MG/24 HOURS TOPICAL PATCH TD SCH (10:07)
[2018-03-20] MEDS: BENZOYL PEROXIDE 5% 60 GM GEL..GRAM. TP SCH (10:17)
[2018-03-20] MEDS: HYDROCORTISONE 0.5% TOPICAL OINTMENT TUBE TP PRN (10:17)
[2018-03-20] MEDS: TOPIRAMATE 25 MG TABLET (FP) PO SCH (15:10)
[2018-03-20] MEDS ORDERED: TOPIRAMATE 25 MG TABLET (FP) PO ONE (15:14)
--- NOTE | 2018-03-20 15:19 | PN ---
[facility] Progress Note Note: Psychiatric nurse practitioner neon sign servicer note: Patient unable to receive her topamax 50mg dose this morning due to facility not having additional topamax in the facility. Topmax 50mg received from [facility] this afternoon. One time dose of topamax 50mg ordered.
[2018-03-20] MEDS: THIAMINE HCL 100 MG TABLET (FP) PO SCH (21:03)
[2018-03-20] MEDS: TOPIRAMATE 100 MG TABLET PO SCH (21:03)
[2018-03-20] MEDS: OLANZapine 10 MG TABLET PO SCH (21:03)
[2018-03-20] MEDS: SUVOREXANT 10 MG TABLET PO PRN (21:08)
[2018-03-20] MEDS: MELATONIN 5 MG TABLETS PO PRN (21:09)
[2018-03-21] MEDS ORDERED: PT OWN MED DRAWER 7, Y5N ONE ×2 (08:49→21:40)
[2018-03-21] MEDS: NICOTINE 21 MG/24 HOURS TOPICAL PATCH TD SCH (09:49)
[2018-03-21] MEDS: GABAPENTIN 300 MG CAPSULE (FP) PO SCH ×2 (09:51→21:10)
[2018-03-21] MEDS: VENLAFAXINE HCL 150 MG E.R. CAPSULE PO SCH (09:51)
[2018-03-21] MEDS: PRENATAL VITAMINS W/ FOLIC ACID TABLET (FP) PO SCH (09:51)
[2018-03-21] MEDS: BENZOYL PEROXIDE 5% 60 GM GEL..GRAM. TP SCH (09:53)
[2018-03-21] MEDS: TOPIRAMATE 25 MG TABLET (FP) PO SCH (09:53)
[2018-03-21] MEDS: OLANZapine 10 MG TABLET PO SCH (21:10)
[2018-03-21] MEDS: MELATONIN 5 MG TABLETS PO PRN (21:10)
[2018-03-21] MEDS: TOPIRAMATE 100 MG TABLET PO SCH (21:10)
[2018-03-21] MEDS: hydrOXYzine PAMOATE 50 MG CAPSULE (FP) PO PRN (21:10)
[2018-03-21] MEDS: THIAMINE HCL 100 MG TABLET (FP) PO SCH (21:10)
[2018-03-21] MEDS: SUVOREXANT 10 MG TABLET PO PRN (21:11)
[2018-03-22] MEDS: GABAPENTIN 300 MG CAPSULE (FP) PO SCH ×2 (10:18→21:37)
[2018-03-22] MEDS: VENLAFAXINE HCL 150 MG E.R. CAPSULE PO SCH (10:18)
[2018-03-22] MEDS: PRENATAL VITAMINS W/ FOLIC ACID TABLET (FP) PO SCH (10:18)
[2018-03-22] MEDS: BENZOYL PEROXIDE 5% 60 GM GEL..GRAM. TP SCH (10:20)
[2018-03-22] MEDS: NICOTINE 21 MG/24 HOURS TOPICAL PATCH TD SCH (10:20)
[2018-03-22] MEDS: TOPIRAMATE 25 MG TABLET (FP) PO SCH (10:20)
[2018-03-22] MEDS: OLANZapine 10 MG TABLET PO SCH (21:37)
[2018-03-22] MEDS: hydrOXYzine PAMOATE 50 MG CAPSULE (FP) PO PRN (21:37)
[2018-03-22] MEDS: THIAMINE HCL 100 MG TABLET (FP) PO SCH (21:37)
[2018-03-22] MEDS: TOPIRAMATE 100 MG TABLET PO SCH (21:37)
[2018-03-22] MEDS: MELATONIN 5 MG TABLETS PO PRN (21:38)
[2018-03-22] MEDS: SUVOREXANT 10 MG TABLET PO SCH (21:38)
[2018-03-23] MEDS: TOPIRAMATE 25 MG TABLET (FP) PO SCH (09:59)
[2018-03-23] MEDS: GABAPENTIN 300 MG CAPSULE (FP) PO SCH ×2 (10:00→21:31)
[2018-03-23] MEDS: VENLAFAXINE HCL 150 MG E.R. CAPSULE PO SCH (10:00)
[2018-03-23] MEDS: PRENATAL VITAMINS W/ FOLIC ACID TABLET (FP) PO SCH (10:00)
[2018-03-23] MEDS: NICOTINE 21 MG/24 HOURS TOPICAL PATCH TD SCH (10:00)
[2018-03-23] MEDS: BENZOYL PEROXIDE 5% 60 GM GEL..GRAM. TP SCH (10:01)
[2018-03-23] MEDS: hydrOXYzine PAMOATE 50 MG CAPSULE (FP) PO PRN (21:31)
[2018-03-23] MEDS: OLANZapine 10 MG TABLET PO SCH (21:31)
[2018-03-23] MEDS: THIAMINE HCL 100 MG TABLET (FP) PO SCH (21:31)
[2018-03-23] MEDS: TOPIRAMATE 100 MG TABLET PO SCH (21:31)
[2018-03-23] MEDS: MELATONIN 5 MG TABLETS PO PRN (21:32)
[2018-03-23] MEDS: SUVOREXANT 10 MG TABLET PO SCH (21:32)
[2018-03-24] MEDS: NICOTINE 21 MG/24 HOURS TOPICAL PATCH TD SCH (09:57)
[2018-03-24] MEDS: TOPIRAMATE 25 MG TABLET (FP) PO SCH (09:58)
[2018-03-24] MEDS: VENLAFAXINE HCL 150 MG E.R. CAPSULE PO SCH (09:58)
[2018-03-24] MEDS: PRENATAL VITAMINS W/ FOLIC ACID TABLET (FP) PO SCH (09:58)
[2018-03-24] MEDS: GABAPENTIN 300 MG CAPSULE (FP) PO SCH ×2 (09:58→21:30)
[2018-03-24] MEDS: BENZOYL PEROXIDE 5% 60 GM GEL..GRAM. TP SCH (09:59)
[2018-03-24] MEDS: TOPIRAMATE 100 MG TABLET PO SCH (21:30)
[2018-03-24] MEDS: hydrOXYzine PAMOATE 50 MG CAPSULE (FP) PO PRN (21:30)
[2018-03-24] MEDS: OLANZapine 10 MG TABLET PO SCH (21:30)
[2018-03-24] MEDS: THIAMINE HCL 100 MG TABLET (FP) PO SCH (21:30)
[2018-03-24] MEDS: SUVOREXANT 10 MG TABLET PO SCH (21:31)
[2018-03-25] MEDS ORDERED: PT OWN MED DRAWER 7, Y5N ONE (08:43)
[2018-03-25] MEDS: NICOTINE 21 MG/24 HOURS TOPICAL PATCH TD SCH (10:10)
[2018-03-25] MEDS: GABAPENTIN 300 MG CAPSULE (FP) PO SCH ×2 (10:11→21:37)
[2018-03-25] MEDS: VENLAFAXINE HCL 150 MG E.R. CAPSULE PO SCH (10:11)
[2018-03-25] MEDS: PRENATAL VITAMINS W/ FOLIC ACID TABLET (FP) PO SCH (10:11)
[2018-03-25] MEDS: TOPIRAMATE 25 MG TABLET (FP) PO SCH (10:11)
[2018-03-25] MEDS: BENZOYL PEROXIDE 5% 60 GM GEL..GRAM. TP SCH (10:12)
[2018-03-25] MEDS: hydrOXYzine PAMOATE 50 MG CAPSULE (FP) PO PRN ×2 (15:34→21:37)
[2018-03-25] MEDS: OLANZapine 10 MG TABLET PO SCH (21:37)
[2018-03-25] MEDS: THIAMINE HCL 100 MG TABLET (FP) PO SCH (21:37)
[2018-03-25] MEDS: TOPIRAMATE 100 MG TABLET PO SCH (21:37)
[2018-03-25] MEDS: SUVOREXANT 10 MG TABLET PO SCH (21:38)
[2018-03-25] MEDS: MELATONIN 5 MG TABLETS PO PRN (21:38)
[2018-03-26] MEDS ORDERED: PT OWN MED DRAWER 7, Y5N ONE (08:46)
[2018-03-26] MEDS: NICOTINE 21 MG/24 HOURS TOPICAL PATCH TD SCH (09:56)
[2018-03-26] MEDS: PRENATAL VITAMINS W/ FOLIC ACID TABLET (FP) PO SCH (09:56)
[2018-03-26] MEDS: TOPIRAMATE 25 MG TABLET (FP) PO SCH (09:56)
[2018-03-26] MEDS: GABAPENTIN 300 MG CAPSULE (FP) PO SCH ×2 (09:56→21:23)
[2018-03-26] MEDS: VENLAFAXINE HCL 150 MG E.R. CAPSULE PO SCH (09:57)
[2018-03-26] MEDS: BENZOYL PEROXIDE 5% 60 GM GEL..GRAM. TP SCH (09:58)
[2018-03-26] MEDS: SUVOREXANT 10 MG TABLET PO SCH (21:23)
[2018-03-26] MEDS: THIAMINE HCL 100 MG TABLET (FP) PO SCH (21:23)
[2018-03-26] MEDS: OLANZapine 10 MG TABLET PO SCH (21:23)
[2018-03-26] MEDS: TOPIRAMATE 100 MG TABLET PO SCH (21:23)
[2018-03-26] MEDS: MELATONIN 5 MG TABLETS PO PRN (21:24)
[2018-03-26] MEDS: hydrOXYzine PAMOATE 50 MG CAPSULE (FP) PO PRN (21:24)
[2018-03-27] MEDS ORDERED: PT OWN MED DRAWER 7, Y5N ONE (08:37)
[2018-03-27] MEDS: PRENATAL VITAMINS W/ FOLIC ACID TABLET (FP) PO SCH (09:32)
[2018-03-27] MEDS: TOPIRAMATE 25 MG TABLET (FP) PO SCH (09:32)
[2018-03-27] MEDS: GABAPENTIN 300 MG CAPSULE (FP) PO SCH ×2 (09:32→21:19)
[2018-03-27] MEDS: VENLAFAXINE HCL 150 MG E.R. CAPSULE PO SCH (09:32)
[2018-03-27] MEDS: NICOTINE 21 MG/24 HOURS TOPICAL PATCH TD SCH (09:33)
[2018-03-27] MEDS: BENZOYL PEROXIDE 5% 60 GM GEL..GRAM. TP SCH (11:03)
[2018-03-27] MEDS: hydrOXYzine PAMOATE 50 MG CAPSULE (FP) PO PRN (21:19)
[2018-03-27] MEDS: THIAMINE HCL 100 MG TABLET (FP) PO SCH (21:19)
[2018-03-27] MEDS: MELATONIN 5 MG TABLETS PO PRN (21:19)
[2018-03-27] MEDS: SUVOREXANT 10 MG TABLET PO SCH (21:19)
[2018-03-27] MEDS: TOPIRAMATE 100 MG TABLET PO SCH (21:19)
[2018-03-27] MEDS: OLANZapine 10 MG TABLET PO SCH (21:19)
[2018-03-28] MEDS ORDERED: PT OWN MED DRAWER 7, Y5N ONE (08:54)
[2018-03-28] MEDS: NICOTINE 21 MG/24 HOURS TOPICAL PATCH TD SCH (09:57)
[2018-03-28] MEDS: VENLAFAXINE HCL 150 MG E.R. CAPSULE PO SCH (09:58)
[2018-03-28] MEDS: TOPIRAMATE 25 MG TABLET (FP) PO SCH (09:58)
[2018-03-28] MEDS: GABAPENTIN 300 MG CAPSULE (FP) PO SCH ×2 (09:58→21:29)
[2018-03-28] MEDS: PRENATAL VITAMINS W/ FOLIC ACID TABLET (FP) PO SCH (09:58)
[2018-03-28] MEDS: BENZOYL PEROXIDE 5% 60 GM GEL..GRAM. TP SCH (09:59)
--- NOTE | 2018-03-28 16:46 | PN ---
Psychiatric Progress Note Vital Signs: Vital Signs Period Temp Pulse Resp BP Sys/Mccarthy Pulse Ox Last 24 Hr 97.8 F 82 18-18 110/77 Date of Session: 03/28/18 Chief Complaint:: Discharge visit HPI: patient addressed alcohol,cocaine,anxiolkytic,cannabis ependence comorbid with bipolar II disorder. ROS: unremarkable Current Medications: Active Medications Generic Name Dose Route Start Last Admin Trade Name Freq PRN Reason Stop Dose Admin Acetaminophen 650 mg 02/25/18 10:21 Tylenol - PO Q4H PRN FEVER Al Hydroxide/Mg Hydroxide 30 ml 02/25/18 10:21 Mylanta Oral Suspension - PO Q6H PRN DYSPEPSIA Benzoyl Peroxide 1 applic 03/01/18 16:45 03/28/18 09:59 Benzoyl Peroxide 5% Gel - TP Not Given DAILY LISA Bupropion HCl 150 mg 02/26/18 10:00 03/28/18 09:58 Wellbutrin Xl - PO 150 mg DAILY LISA Administration Eucalyptus/Menthol/Phenol/Sorbitol 1 each 02/25/18 10:21 Cepastat Lozenge - MM Q4H PRN SORE THROAT Gabapentin 300 mg 03/02/18 22:00 03/28/18 09:58 Neurontin - PO 300 mg BID LISA Administration Guaifenesin 10 ml 02/25/18 10:21 Robitussin Dm - PO Q6H PRN COUGH Hydrocortisone 1 applic 03/13/18 18:03 03/20/18 10:17 Hytone 0.5% Ointment - TP 1 bag Q12H PRN Administration FOR ITCHING Hydroxyzine Pamoate 50 mg 02/25/18 10:40 03/27/18 21:19 Vistaril - PO 50 mg Q4H PRN Administration AGITATION Ibuprofen 400 mg 02/25/18 10:21 Motrin - PO Q6H PRN PAIN LEVEL 4-6 Loperamide HCl 4 mg 02/25/18 10:21 Imodium - PO Q6H PRN DIARRHEA Magnesium Citrate 300 ml 02/25/18 10:21 Citroma - PO Q48H PRN CONSTIPATION Magnesium Hydroxide 30 ml 02/25/18 10:21 Milk Of Magnesia - PO DAILY PRN CONSTIPATION Melatonin 5 mg 02/25/18 22:00 03/27/18 21:19 Melatonin PO 5 mg HS PRN Administration INSOMNIA Nicotine 21 mg 11/16/18 10:30 03/28/18 09:57 Nicoderm Patch - TD 21 mg DAILY LISA Administration Olanzapine 10 mg 02/25/18 22:00 03/27/18 21:19 Zyprexa - PO 10 mg HS LISA Administration Multivit/Folic Acid/Iron 1 tab 02/26/18 10:00 03/28/18 09:58 Vitamins (Sjr) - PO 1 tab DAILY LISA Administration Pseudoephedrine/Triprolidine 1 combo 02/25/18 10:21 Actifed - PO TID PRN NASAL CONGESTION Suvorexant 10 mg 03/22/18 22:00 03/27/18 21:19 Belsomra PO 10 mg HS LISA Administration Thiamine HCl 100 mg 02/25/18 22:00 03/27/18 21:19 Vitamin B1 - PO 100 mg HS LISA Administration Topiramate 50 mg 03/03/18 10:00 03/28/18 09:58 Topamax - PO 50 mg DAILY LISA Administration Topiramate 100 mg 03/02/18 22:00 03/27/18 21:19 Topamax - PO 100 mg HS LISA Administration Venlafaxine HCl 150 mg 03/02/18 14:00 03/28/18 09:58 Effexor Xr - PO 150 mg DAILY LISA Administration Current Side Effect: No Lab tests ordered: No Lab tests reviewed: Yes Provider note:: Patient will complete this program tomorrow 03/29/18.She has met her treatment goals and will continue to address her issues on outpatient basis at [facility] outpatient day rehabilitation program. patient will continue current medications as per plan.scripts for 30 days provided. supportive therapy provided focusing on relapose prevention.Coping skills, support utilization as well as other resourses to maintain recovery has been discussed with the patient. Patient is stable for discharge tomorrow 03/29/18. Mental Status Exam - Mental Status Exam Alert and Oriented to: Time, Place, Person Cognitive Function: Grossly Intact Patient Appearance: Well Groomed Mood: Euthymic Affect: Normal Range Patient Behavior: Cooperative Speech Pattern: Clear Voice Loudness: Normal Thought Process: Goal Oriented Thought Disorder: Not Present Hallucinations: Denies Suicidal Ideation: Denies Homicidal Ideation: Denies Insight/Judgement: Fair Sleep: Fair Appetite: Fair Muscle strength/Tone: Normal Gait/Station: Normal Psychiatric Treatment Plan - Problem List (1) Alcohol dependence Current Visit: Yes (2) Cannabis dependence Current Visit: Yes (3) Cocaine dependence Current Visit: Yes (4) Sedative hypnotic or anxiolytic dependence Current Visit: Yes (5) Nicotine dependence Current Visit: Yes Qualifiers: Nicotine product type: cigarettes Substance use status: in withdrawal Qualified Code(s): F17.213 - Nicotine dependence, cigarettes, with withdrawal (6) Bipolar II disorder Current Visit: No
[2018-03-28] MEDS: OLANZapine 10 MG TABLET PO SCH (21:29)
[2018-03-28] MEDS: SUVOREXANT 10 MG TABLET PO SCH (21:29)
[2018-03-28] MEDS: THIAMINE HCL 100 MG TABLET (FP) PO SCH (21:29)
[2018-03-28] MEDS: hydrOXYzine PAMOATE 50 MG CAPSULE (FP) PO PRN (21:29)
[2018-03-28] MEDS: TOPIRAMATE 100 MG TABLET PO SCH (21:29)
[2018-03-28] MEDS: MELATONIN 5 MG TABLETS PO PRN (21:30)
[2018-03-29 07:26] VITALS: BP 118/84; PULSE 81; TEMP 98
[2018-03-29] MEDS: VENLAFAXINE HCL 150 MG E.R. CAPSULE PO SCH (09:02)
[2018-03-29] MEDS: NICOTINE 21 MG/24 HOURS TOPICAL PATCH TD SCH (09:02)
[2018-03-29] MEDS: GABAPENTIN 300 MG CAPSULE (FP) PO SCH (09:02)
[2018-03-29] MEDS: TOPIRAMATE 25 MG TABLET (FP) PO SCH (09:02)
[2018-03-29] MEDS: PRENATAL VITAMINS W/ FOLIC ACID TABLET (FP) PO SCH (09:02)
[2018-03-29] MEDS: BENZOYL PEROXIDE 5% 60 GM GEL..GRAM. TP SCH (09:03)
== END 2018-03-29 09:10 | disposition home or self-care (01) | DRG 895 ==
LOC: YASAS 09:23 → Y6N 10:28 → Y3E 03-01 10:16
PROVIDERS: ATTEND Psychiatry & Neurology Psychiatry
PROC: HZ2ZZZZ Detoxification Services for Substance Abuse Treatment (ICD-10-PCS; principal; 2018-02-25)
PROC: HZ42ZZZ Group Counseling for Substance Abuse Treatment, Cognitive-Behavioral (ICD-10-PCS; 2018-03-02)
DX: F10.230 Alcohol dependence with withdrawal, uncomplicated (principal); F14.20 Cocaine dependence, uncomplicated; F31.81 Bipolar II disorder; F19.282 Other psychoactive substance dependence with psychoactive substance-induced sleep disorder; F13.230 Sedative, hypnotic or anxiolytic dependence with withdrawal, uncomplicated; F12.20 Cannabis dependence, uncomplicated; F17.213 Nicotine dependence, cigarettes, with withdrawal; F19.24 Other psychoactive substance dependence with psychoactive substance-induced mood disorder; G47.00 Insomnia, unspecified; L70.9 Acne, unspecified; Z88.0 Allergy status to penicillin; Z87.42 Personal history of other diseases of the female genital tract
CPT/HCPCS: 36415; 80053; 81003; 85027; 86593

== ENCOUNTER 2018-06-19 00:02 | Emergency (ER) | payer OTHER ==
[2018-06-19 00:16] VITALS: BMI 27.3
--- NOTE | 2018-06-19 00:36 | PDOC ---
Attending Attestation - Resident Resident Name: JacquelinetreeaneudyYang - ED Attending Attestation I have performed the following: I have examined & evaluated the patient, The case was reviewed & discussed with the resident, I agree w/resident's findings & plan, Exceptions are as noted - HPI HPI: 06/19/18 00:40 38 year old female with past medical history bipolar disorder, substance and alcohol abuse presents with 1 week of left hip and lower back pain. The patient reported that she had actually slipped and fell of her chair landing on her left hip. Since then, she's been having constant lower back pain radiating posteriorly to left thigh. No numbness or weakness. Reports pain with palpation and movement. She had visited an urgent care and her primary care physician where she obtain x-rays which were reportedly negative. She's been taken a muscle relaxant with no relief. Because of persistence of pain, came to the ER. - Physicial Exam PE: 06/19/18 00:40 GENERAL: Awake, alert, and fully oriented, in no acute distress HEAD: No signs of trauma EYES: EOMI, sclera anicteric, conjunctiva clear ENT: Auricles normal inspection, hearing grossly normal, nares patent, oropharynx clear without exudates. Moist mucosa NECK: Normal ROM, supple BACK: Mildly TTP lumbar spine, but no step offs. PELVIS: stable, with mild TTP left lateral hip. Mild bruising on left hip. EXTREMITIES: Normal range of motion, no edema. No clubbing or cyanosis. No cords, erythema, or tenderness NEUROLOGICAL: Cranial nerves II through XII grossly intact. Normal speech, normal gait SKIN: Warm, Dry, normal turgor, no rashes or lesions noted. - Medical Decision Making 06/19/18 00:24 A portion of this note was documented by scribe services under my direction. I have reviewed the details of the note, within reason, and agree with the documentation with the following case summary and management plan written by me. Patient treated in the ED. Nursing notes are reviewed and incorporated into the medical decision-making. Vital signs reviewed. Peripheral IV access obtained by the nurse, laboratory studies are drawn and sent, reviewed and interpreted by myself. Vital Signs Temp Pulse Resp BP Pulse Ox 97.6 F 89 18 103/56 L 100 06/19/18 00:14 06/19/18 00:14 06/19/18 00:14 06/19/18 00:14 06/19/18 00:14 The patient may potentially be having muscle skeletal back spasm or sciatica back pain. However, we'll obtain a CAT scan of the lumbar spine and pelvis even persistent pain despite negative x-rays. Pain control and reassess. 06/19/18 04:25 CT pelvis reviewed. No acute findings. Lumbar spine CT. Large disc herniation at L5-S1. No saddle anesthesia. No urinary or bowel incontinence. However, the intermittent parasthesias likely secondary to disc herniation. Pt is able to ambulate but with pain. Full strength in lower extremities. No foot drop noted Will attempt to control pain. However, given the size of the disc herniation, will consult Dr. Kirby from spinal surgery. 06/19/18 06:32 Dr. Grigsby had consulted Dr. Kirby. Requests MRI lumbar spine noncontrast and he will come in ER to evaluate patient. Dispo per MRI and Dr. Kirby. 06/19/18 06:38 Pt signed out to day time team, DR. Banks, pending MRI and neurosurgery Heart Score/ECG Review #1 ECG reviewed & interpreted by me at: 05:55 06/19/18 06:55 NSR 70, no std/alison, normal axis, normal intervals, QTC 419 msec
--- NOTE | 2018-06-19 00:57 | PDOC ---
History of Present Illness - General Chief Complaint: Back Pain Stated Complaint: PAIN IN LOWER BACK Time Seen by Provider: 06/19/18 00:14 History Source: Patient Exam Limitations: No Limitations - History of Present Illness Initial Comments: 06/19/18 00:43 38 yo female pmh of bipolar, cocaine and marijuana abuse presents to the ED for left hip pain. Pt states last week she fell out of her chair onto her left hip but was able to ambulate right after. Pt went to Urgent care, x ray negative for fracture and given Motrin and muscle relaxer without pain relief. Pt admits to pain radiating from left hip down to left foot described as sharp in tingling , denies abdominal pain, weakness in left leg, saddle anesthesia, midline spine tenderness. Past History - Past Medical History Allergies/Adverse Reactions: Allergies Allergy/AdvReac Type Severity Reaction Status Date / Time Penicillins Allergy Severe Hives Verified 06/19/18 00:14 Home Medications: Ambulatory Orders Bupropion HCl [Wellbutrin -] 150 mg PO DAILY #60 tablet 11/22/17 Gabapentin [Neurontin -] 300 mg PO BID #60 capsule 03/28/18 Olanzapine [ZyPREXA -] 10 mg PO HS #30 tablet 03/28/18 Venlafaxine HCl ER [Effexor Xr -] 150 mg PO DAILY #30 cap.er.24h 03/28/18 Anemia: No Asthma: No Cancer: No Cardiac Disorders: No CVA: No COPD: No CHF: No Dementia: No Diabetes: No GI Disorders: No Disorders: No HTN: No Hypercholesterolemia: No Kidney Stones: No Liver Disease: No Seizures: No Thyroid Disease: No - Surgical History Abdominal Surgery: No Appendectomy: No Cardiac Surgery: No Cholecystectomy: No Lung Surgery: No Neurologic Surgery: No Orthopedic Surgery: No - Reproductive History PID: No - Suicide/Smoking/Psychosocial Hx Smoking History: Never smoked Have you smoked in the past 12 months: No Number of Cigarettes Smoked Daily: 14 Cigars Per Day: 0 Information on smoking cessation initiated: No 'Breaking Loose' booklet given: 02/25/18 Hx Alcohol Use: No Drug/Substance Use Hx: No Substance Use Type: Alcohol (Started drinking alcohol at age 17, consumes 3x 24oz daily. Last drank on 02/24/18), Cocaine (Started smoking crack cocaine at age 23. consumes $60 worth daily. Last smoked on 02/24/18), Tranquilizers ( Started using xanax at age 37, consumes 2 mg daily. Last used on 02/24/18) Hx Substance Use Treatment: Yes (one previous inpt detox & 2 inpt rehab admissions @ [facility]) *Physical Exam - Vital Signs Last Vital Signs Temp Pulse Resp BP Pulse Ox 97.6 F 89 18 103/56 L 100 06/19/18 00:14 06/19/18 00:14 06/19/18 00:14 06/19/18 00:14 06/19/18 00:14 - Physical Exam General Appearance: Yes: Nourished, Appropriately Dressed. No: Apparent Distress HEENT: positive: EOMI Respiratory/Chest: positive: Lungs Clear, Normal Breath Sounds Cardiovascular: positive: Regular Rhythm, Regular Rate, S1, S2. negative: Edema , JVD, Murmur Vascular Pulses: Dorsalis-Pedis (R): 4+, Doralis-Pedis (L): 4+ Gastrointestinal/Abdominal: positive: Normal Bowel Sounds, Flat, Soft. negative : Distended, Guarding, Rebound, Tenderness Musculoskeletal: negative: CVA Tenderness Extremity: positive: Normal Capillary Refill, Normal Inspection, Normal Range of Motion Integumentary: positive: Normal Color, Dry, Warm Neurologic: positive: Fully Oriented, Alert, Normal Mood/Affect, Normal Response , Motor Strength 5/5, Numbness, Other (positive straightleg raise on left. Pt has equal strength with dorsiflexion/plantar flexion and extension of the great toe bilaterally, no foot drop noted ambulating well while in the ED). negative : Sensory Deficit Moderate Sedation - Procedure Monitoring Vital Signs: Procedure Monitoring Vital Signs Temperature 97.6 F 06/19/18 00:14 Pulse Rate 89 06/19/18 00:14 Respiratory Rate 18 06/19/18 00:14 Blood Pressure 103/56 L 06/19/18 00:14 O2 Sat by Pulse Oximetry (%) 100 06/19/18 00:14 ED Treatment Course - LABORATORY CBC & Chemistry Diagram: 06/19/18 05:18 06/19/18 04:34 Medical Decision Making - Medical Decision Making 06/19/18 05:47 38 yo female presents to the ED for left hip pain after a fall last week. No stepoffs, midline spine tenderness Pt admits to numbness/tingling into the left foot without associated weakness Pulses equal bilateral lower ext, strength equal in dorsi/plantar flexion and extension of great toes bilaterally Vitals WNL Labs unremarkable DDX INLT: disc herniation, muscle strain, sciatica, spinal fracture 06/19/18 06:35 CT lumbar spine shows L5-S1 1.4 by 1.4 left paramedian disc herniation showing mass effect on S1 lateral recess Spoke with Dr. Kirby regarding CT findings, would like MRI non con of lumbar spine and will reassess pt around 10 am 06/19/18 06:50 S/O to day team for further care and instruction from NS *DC/Admit/Observation/Transfer Diagnosis at time of Disposition: Hip pain Qualifiers: Laterality: left Qualified Code(s): M25.552 - Pain in left hip - Discharge Dispostion Condition at time of disposition: Stable Decision to Admit order: No - Referrals - Patient Instructions Printed Discharge Instructions: DI for Hip Pain Additional Instructions: Please see your Primary Doctor within the next 48 hours. Take the medications sent to your pharmacy as prescribed and as needed for pain. Return to the ER for new or concerning symptoms including but not limited to: weakness in the left leg, loss of sensation in the - Post Discharge Activity
[2018-06-19] MEDS ORDERED: KETOROLAC TROMETHAMINE 30 MG/1 ML VIAL IM ONE (01:01)
[2018-06-19] MEDS ORDERED: CYCLOBENZAPRINE HCL 5 MG TABLET PO ONE (01:02)
[2018-06-19] MEDS ORDERED: KETOROLAC TROMETHAMINE 30 MG/1 ML VIAL ONE (01:49)
[2018-06-19] MEDS ORDERED: CYCLOBENZAPRINE HCL 10 MG TABLET (FP) ONE (01:49)
[2018-06-19] MEDS ORDERED: traMADol HCL 50 MG TABLET PO ONE (04:04)
[2018-06-19] MEDS ORDERED: LIDOCAINE 5% TOPICAL PATCH TP ONE (04:04)
[2018-06-19] MEDS ORDERED: traMADol HCL 50 MG TABLET ONE (04:34)
[2018-06-19] MEDS ORDERED: LIDOCAINE 5% TOPICAL PATCH ONE (04:34)
[2018-06-19] MEDS ORDERED: morphine CARPU-JECT 4 MG/1 ML DISP.SYRIN IVPUSH ONE (04:44)
[2018-06-19] MEDS ORDERED: morphine SULFATE 4 MG/ML VIAL ONE (04:59)
[2018-06-19 05:45] LABS: BASO % 0.4 % (0-2.0); EOS % 1.1 % (0-4.5); HEMATOCRIT 33.1 % (32.4-45.2); HEMOGLOBIN 11.5 GM/dL (10.7-15.3); LYMPH % 30.7 % (8-40); MCH 31.5 pg (25.7-33.7); MCHC 34.7 g/dl (32.0-36.0); MEAN CELL VOLUME 90.8 fl (80-96); MONO % 8.5 % (3.8-10.2); NEUT % 59.3 % (42.8-82.8); PLATELET COUNT 267 K/MM3 (134-434); RBC 3.65 M/mm3 (3.60-5.2); RDW 14.9 % (11.6-15.6); WHITE BLOOD COUNT 11.4 K/mm3 (4.0-10.0)
[2018-06-19 06:20] LABS: ALBUMIN 3.6 g/dl (3.4-5.0); ALK PHOS 76 U/L (45-117); ANION GAP 7 MMOL/L (8-16); BILIRUBIN,TOTAL 0.4 mg/dL (0.2-1); BLOOD UREA NITROGEN 15 mg/dL (7-18); CHLORIDE 109 mmol/L (98-107); CO2 24 mmol/L (21-32); CREATININE 0.9 mg/dL (0.55-1.3); GLUCOSE,RANDOM 95 mg/dL (74-106); POTASSIUM 3.7 mmol/L (3.5-5.1); SGOT/AST 15 U/L (15-37); SGPT/ALT 16 U/L (13-61); SODIUM 140 mmol/L (136-145); TOT PROT 6.4 g/dl (6.4-8.2)
[2018-06-19 06:22] LABS: PROTHROMBIN TIME (PATIENT) 11.8 SEC (9.7-13.0)
[2018-06-19] MEDS ORDERED: MORPHINE SULFATE 2 MG/ML VIAL IVPUSH ONE (07:12)
[2018-06-19] MEDS ORDERED: MORPHINE SULFATE 2 MG/ML VIAL ONE ×2 (07:23→10:11)
--- NOTE | 2018-06-19 07:56 | PDOC ---
*Physical Exam - Vital Signs Last Vital Signs Temp Pulse Resp BP Pulse Ox 98.5 F 67 18 108/71 98 06/19/18 06:42 06/19/18 06:42 06/19/18 06:42 06/19/18 06:42 06/19/18 06:42 ED Treatment Course - LABORATORY CBC & Chemistry Diagram: 06/19/18 05:18 06/19/18 04:34 - ADDITIONAL ORDERS Additional order review: Laboratory Results 06/19/18 06/19/18 06/19/18 05:18 04:34 00:40 PT with INR 11.80 INR 1.00 PTT (Actin FS) 29.0 Sodium 140 Potassium 3.7 Chloride 109 H Carbon Dioxide 24 Anion Gap 7 L BUN 15 Creatinine 0.9 Creat Clearance w eGFR > 60 Random Glucose 95 Calcium 8.0 L Total Bilirubin 0.4 AST 15 ALT 16 Alkaline Phosphatase 76 Total Protein 6.4 Albumin 3.6 Urine HCG, Qual Negative 06/19/18 05:18 RBC 3.65 MCV 90.8 MCHC 34.7 RDW 14.9 MPV 8.0 D Neutrophils % 59.3 Lymphocytes % 30.7 Monocytes % 8.5 Eosinophils % 1.1 Basophils % 0.4 - Medications Given in the ED: ED Medications Discontinued Medications Generic Name Dose Route Start Last Admin Trade Name Freq PRN Reason Stop Dose Admin Cyclobenzaprine HCl 10 mg 06/19/18 01:02 06/19/18 03:04 Cyclobenzaprine Hcl PO 06/19/18 01:03 10 mg ONCE ONE Administration Ketorolac Tromethamine 30 mg 06/19/18 01:01 06/19/18 03:02 Toradol Injection - IM 06/19/18 01:02 30 mg ONCE ONE Administration Lidocaine 1 patch 06/19/18 04:04 06/19/18 04:51 Lidoderm Patch - TP 06/19/18 04:05 1 patch ONCE ONE Administration Morphine Sulfate 4 mg 06/19/18 04:44 06/19/18 05:01 Morphine Injection - IVPUSH 06/19/18 04:45 4 mg ONCE ONE Administration Morphine Sulfate 2 mg 06/19/18 07:12 06/19/18 07:27 Morphine Sulfate IVPUSH 06/19/18 07:13 2 mg ONCE ONE Administration Tramadol HCl 50 mg 06/19/18 04:04 06/19/18 04:50 Ultram - PO 06/19/18 04:05 50 mg ONCE ONE Administration Medical Decision Making - Medical Decision Making 06/19/18 11:06 Dr. Diaz saw the patient and discussed findings. Patient will need to come back for surgery but in the meantime she's asking to go home. PAtient able to ambulate. Dr. Diaz consented that the patient be discharged with Medrol dose pack and Percocet. 06/19/18 12:35 As patient was admitted to ed obs for 10h, patient will be seen and dispo'ed by hospitalist team. *DC/Admit/Observation/Transfer Diagnosis at time of Disposition: Lumbar disc disease with radiculopathy - Discharge Dispostion Disposition: HOME Condition at time of disposition: Stable Decision to Admit order: Yes - Prescriptions Prescriptions: Methylprednisolone [Medrol Dose Ealdio] 4 mg PO ASDIR #21 tablet Oxycodone HCl/Acetaminophen [Percocet 5-325 mg Tablet] 1 tab PO Q4H PRN #20 tablet MDD 6 tabs PRN Reason: severe pain - Referrals Referrals: Geraldo Kirby MD, FAANS [Staff Physician] - Gt Ross MD [Staff Physician] - - Patient Instructions Printed Discharge Instructions: DI for Hip Pain Additional Instructions: You were seen here due to your hip pain after your fall. On imaging you were found to have a slipped disk in your spine. While you were here neurosurgery ( Dr. Kirby) evaluated you and would like you to have an elective epidural with Dr. Ross's office. In the meantime he recommended to have you take a steroid dose pack and use pain medication as needed. He states that if the epidural doesn't fully work or if over time.you pain remains he would like you to follow-up at his office for a possible elective procedure. MEDICATIONS: A prednisone pack was prescribed to your pharmacy --Please take the tapering doses as directed; it is very important you complete the full regiment until the end as stopping this medication abruptly could be dangerous Pain medications were also prescribed to your pharmacy to take NEEDED when the pain is limiting your daily activities. Please continue the rest of your medications as prescribed. FOLLOW-UP You will need to see your primary physician in the next 48 hours. You will need to see Dr. Ross tomorrow at his office Dr. Kirby's information will be given to you if you need to follow-up with him in the future. Please return to the ER for new or concerning symptoms including but not limited to: weakness in the left leg, loss of sensation or worsening tingling in the feet or legs, urinary incontinence. - Post Discharge Activity Forms/Work/School Notes: Back to Work
[2018-06-19 09:12] VITALS: TEMP 98.7
[2018-06-19] MEDS ORDERED: morphine CARPU-JECT 2 MG/1 ML DISP.SYRIN IVPUSH ONE (10:08)
[2018-06-19] MEDS ORDERED: methylPREDNISolone NA SUCC 40 MG/1 ML VIAL IVPUSH ONE (11:06)
[2018-06-19] MEDS ORDERED: methylPREDNISolone NA SUCC 125 MG/2 ML VIAL ONE (11:11)
--- NOTE | 2018-06-19 11:15 | HP ---
CHIEF COMPLAINT: L hip pain PCP: None HISTORY OF PRESENT ILLNESS: 38yo F with h/o Bipolar disorder, cocaine and marijuana abuse who presents to the ED due to L hip pain that started last week. At that time she fell out of her chair onto her hip, however was able to get up and ambulate directly after. Since then she has had mild to moderate pain exacerbated by specific movements. In addition she endorses L hip to foot sharp shooting tingling sensation with more pronounced tingling in her L foot. Pt went to urgent care as a result and an XR r/o fracture, she was given motrin and muscle relaxant however this did not provide relief. Pt denies any fever/chills, prior spinal interventions, pronounced back pain, neck pain, urinary incontinence, saddle parasthesias, CP, SOB, abdominal pain, diarrhea/constipations. PAST MEDICAL HISTORY: Bipolar disorder Polysubstance abuse PAST SURGICAL HISTORY: None prior Social History: Smoking: No tobacco products Alcohol: Drugs: Marijuana daily, cocaine (snorting; last use several months prior) Lives at home, able to ambulate without assistance. Family History: Noncontributory Allergies Penicillins Allergy (Severe, Verified 06/19/18 00:14) Hives HOME MEDICATIONS: Home Medications Medication Instructions Recorded Bupropion HCl [Wellbutrin -] 150 mg PO DAILY #60 tablet 11/22/17 Gabapentin [Neurontin -] 300 mg PO BID #60 capsule 03/28/18 Olanzapine [ZyPREXA -] 10 mg PO HS #30 tablet 03/28/18 Venlafaxine HCl ER [Effexor Xr -] 150 mg PO DAILY #30 cap.er.24h 03/28/18 REVIEW OF SYSTEMS As per HPI PHYSICAL EXAMINATION Vital Signs 06/19/18 09:10 Temperature 98.7 F Pulse Rate Pulse Rate [ 68 Left Radial] Respiratory 16 Rate Blood Pressure Blood Pressure 109/70 [Left Arm] O2 Sat by Pulse 100 Oximetry (%) GENERAL: NAD, Awake, alert, and fully oriented HEENT: NC/AT, CATHIE, MMM NECK: No JVD, no TTP of neck. LUNGS: CTA bilaterally. No wheezes, and no crackles. No accessory muscle use. HEART: RRR, normal S1 and S2 without murmur ABDOMEN: Soft, NT/ND, normoactive bowel sounds, no guarding, no organomegaly appreciated MUSCULOSKELETAL: Normal ROM in lower extremities. No CVA tenderness. No spinous process TTP EXTREMITIES: 2+ DP pulses, warm, well-perfused. No calf tenderness. No peripheral edema. 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 Lower extremity strength 5/5 in hip, dorsal, and plantar flexion. Flexion/extension of the knee b/l 5/5. Sensation intact and symmetrical in feet. Normal speech. Gait not observed PSYCHIATRIC: Cooperative. Good eye contact. Appropriate mood and affect. SKIN: Warm, dry, no rashes or lesions noted Laboratory Results 06/19/18 06/19/18 06/19/18 00:40 04:34 05:18 WBC 11.4 H RBC 3.65 Hgb 11.5 Hct 33.1 D MCV 90.8 MCH 31.5 D MCHC 34.7 RDW 14.9 Plt Count 267 MPV 8.0 D Absolute Neuts (auto) 6.7 Neutrophils % 59.3 Lymphocytes % 30.7 Monocytes % 8.5 Eosinophils % 1.1 Basophils % 0.4 Nucleated RBC % 0 PT with INR INR PTT (Actin FS) Sodium 140 Potassium 3.7 Chloride 109 H Carbon Dioxide 24 Anion Gap 7 L BUN 15 Creatinine 0.9 Creat Clearance w eGFR > 60 Random Glucose 95 Calcium 8.0 L Total Bilirubin 0.4 AST 15 ALT 16 Alkaline Phosphatase 76 Total Protein 6.4 Albumin 3.6 Urine HCG, Qual Negative 06/19/18 05:18 WBC RBC Hgb Hct MCV MCH MCHC RDW Plt Count MPV Absolute Neuts (auto) Neutrophils % Lymphocytes % Monocytes % Eosinophils % Basophils % Nucleated RBC % PT with INR 11.80 INR 1.00 PTT (Actin FS) 29.0 Sodium Potassium Chloride Carbon Dioxide Anion Gap BUN Creatinine Creat Clearance w eGFR Random Glucose Calcium Total Bilirubin AST ALT Alkaline Phosphatase Total Protein Albumin Urine HCG, Qual ASSESSMENT/PLAN: Nucleus pulposis herniation Bipolar disorder Polysubstance abuse --Pt to be seen by Dr. Kirby for evaluation due to imaging findings --Pt agrees for epidural injection tomorrow at Dr. Ross's office --Will need to be discharged with Medrol dose pack --Percocet to be prescribed for bridging to pain management (iSTOP checked by attending; see note for more info) --If no relief or worsening symptoms, will need likely intervention per Dr. Kirby's office --Continue Gabapentin home dose --Continue Welbutrin, Efexor, and Zyprexa home dose --Encouraged marijuana and cocaine cessation FEN: Fluids: none Electrolyte abnormalities: None Nutrition: Regular PPX: DVT - Low risk GI - Not indicated Dispo: To be discharged with follow-up plans Case discussed with Dr. Weber and Dr. Kofi Bautista, DO - IM PGY-2 Visit type - Emergency Visit Emergency Visit: Yes Care time: The patient presented to the Emergency Department on the above date and was hospitalized for further evaluation of their emergent condition. - New Patient This patient is new to me today: Yes Date on this admission: 06/19/18 - Critical Care Critical Care patient: No
--- NOTE | 2018-06-19 11:23 | PN ---
Teaching Attending Note Name of Resident: Bulmaro Bautista ATTENDING PHYSICIAN STATEMENT I saw and evaluated the patient. I reviewed the resident's note and discussed the case with the resident. I agree with the resident's findings and plan as documented. SUBJECTIVE:38yo F with h/o Bipolar disorder, continuous polysubstance abuse c/o L hip pain x1 week. she fell out of a chair and onto her hip. went to urgent care where XR was done nad negative. developed shooting pain and numbness which had her come to the ER for further evaluation. Pt denies any fever/chills, prior spinal interventions, pronounced back pain, neck pain, urinary incontinence, saddle parasthesias, CP, SOB, abdominal pain, diarrhea/ constipations. OBJECTIVE: Last Vital Signs Temp Pulse Resp BP Pulse Ox 98.7 F 68 16 109/70 100 06/19/18 09:10 06/19/18 09:10 06/19/18 09:10 06/19/18 09:10 06/19/18 09:10 General mild distress due to pain CV S1 S2 RRR no murmur/rub/gallop Lungs cTA B/L no wheezing/rales/rhonchi Extremities L hip pain, sensation grossly intact in B/L LE ASSESSMENT AND PLAN: 38yo F with h/o Bipolar disorder, continuous polysubstance abuse c/o L hip pain x1 week and MRI done showing L5-S1 degenerative disease with large extruding disc obliterating the Left recess displacing the S1 nerve 1. L5-S1 Disc herniation- evaluated by neurosurg. plan to have epidural tomorrow by pain specialist and send home with percocet for a few days. will f/ u with Neurosurg as outpatient to evaluate if no improvement may require elective surgery 2. Continuous polysubstance abuse- counselled on risks assoc with continued use 3. d/w patient and boyfriend about risks assoc with opiate use including drowsiness and constipation and its possible for addiction [employer] Reference#: [id number]
--- NOTE | 2018-06-19 11:56 | EKG ---
Test Reason : Blood Pressure : / mmHG Vent. Rate : 070 BPM Atrial Rate : 070 BPM P-R Int : 160 ms QRS Dur : 088 ms QT Int : 388 ms P-R-T Axes : 070 057 044 degrees QTc Int : 419 ms NORMAL SINUS RHYTHM NORMAL ECG WHEN COMPARED WITH ECG OF 09-NOV-2017 22:45, NO SIGNIFICANT CHANGE WAS FOUND Confirmed by SILKE EMERY MD ([id number]) on 06/19/2018 11:56:19 AM Referred By: Confirmed By:SILKE EMERY MD
--- NOTE | 2018-06-19 12:00 | DS ---
Physical Exam: SUBJECTIVE: See H&P HPI OBJECTIVE: Vital Signs Period Temp Pulse Resp BP Sys/Mccarthy Pulse Ox Last 24 Hr 97.6 F-98.7 F 67-89 16-18 103-109/56-71 98-100 PHYSICAL EXAM UNCHANGED FROM H&P GENERAL: NAD, Awake, alert, and fully oriented HEENT: NC/AT, CATHIE, MMM NECK: No JVD, no TTP of neck. LUNGS: CTA bilaterally. No wheezes, and no crackles. No accessory muscle use. HEART: RRR, normal S1 and S2 without murmur ABDOMEN: Soft, NT/ND, normoactive bowel sounds, no guarding, no organomegaly appreciated MUSCULOSKELETAL: Normal ROM in lower extremities. No CVA tenderness. No spinous process TTP EXTREMITIES: 2+ DP pulses, warm, well-perfused. No calf tenderness. No peripheral edema. 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 Lower extremity strength 5/5 in hip, dorsal, and plantar flexion. Flexion/extension of the knee b/l 5/5. Sensation intact and symmetrical in feet. Normal speech. Gait not observed PSYCHIATRIC: Cooperative. Good eye contact. Appropriate mood and affect. SKIN: Warm, dry, no rashes or lesions noted LABS Laboratory Results 06/19/18 06/19/18 06/19/18 00:40 04:34 05:18 WBC 11.4 H RBC 3.65 Hgb 11.5 Hct 33.1 D MCV 90.8 MCH 31.5 D MCHC 34.7 RDW 14.9 Plt Count 267 MPV 8.0 D Absolute Neuts (auto) 6.7 Neutrophils % 59.3 Lymphocytes % 30.7 Monocytes % 8.5 Eosinophils % 1.1 Basophils % 0.4 Nucleated RBC % 0 PT with INR INR PTT (Actin FS) Sodium 140 Potassium 3.7 Chloride 109 H Carbon Dioxide 24 Anion Gap 7 L BUN 15 Creatinine 0.9 Creat Clearance w eGFR > 60 Random Glucose 95 Calcium 8.0 L Total Bilirubin 0.4 AST 15 ALT 16 Alkaline Phosphatase 76 Total Protein 6.4 Albumin 3.6 Urine HCG, Qual Negative 06/19/18 05:18 WBC RBC Hgb Hct MCV MCH MCHC RDW Plt Count MPV Absolute Neuts (auto) Neutrophils % Lymphocytes % Monocytes % Eosinophils % Basophils % Nucleated RBC % PT with INR 11.80 INR 1.00 PTT (Actin FS) 29.0 Sodium Potassium Chloride Carbon Dioxide Anion Gap BUN Creatinine Creat Clearance w eGFR Random Glucose Calcium Total Bilirubin AST ALT Alkaline Phosphatase Total Protein Albumin Urine HCG, Qual Lumbar and Pelvis CT 06/19/18: Minimal retrolisthesis of L5 over S1 without evidence of a fracture. L5-S1 large left paracentral disc herniation impinging left S1 nerve root. Correlation with MRI of the lumbar spine is needed. A preliminary report was forwarded by the [employer] [facility], [employer] No gross fracture is identified. Both hip joints are intact. 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 Straightening of lordosis. No evidence spinal stenosis. HOSPITAL COURSE: Date of Admission:06/19/18 Date of Discharge: 06/19/18 Pt was briefly seen for L hip pain and for herniated nucleus pulposis. Pt was evaluated by neurosurgery and was given pain relief in the ED. Per neurosurgery' s plan, pt is to follow with Dr. Ross for epidural injection alongside of taking a Medrol dose pack (prescribed to [facility] in [place]) and Percocet 5-325 #3 tablets. If symptoms worsen of if epidural injection therapy does not mitigate pt's pain, she is to follow-up with Dr. Kirby for possible elective intervention. Minutes to complete discharge: 35 Discharge Summary Reason For Visit: PAIN IN LOWER BACK Current Active Problems Hip pain (Acute) Condition: Stable - Instructions Diet, Activity, Other Instructions: You were seen here due to your hip pain after your fall. On imaging you were found to have a slipped disk in your spine. While you were here neurosurgery ( Dr. Kirby) evaluated you and would like you to have an elective epidural with Dr. Ross's office. In the meantime he recommended to have you take a steroid dose pack and use pain medication as needed. He states that if the epidural doesn't fully work or if over time.you pain remains he would like you to follow-up at his office for a possible elective procedure. MEDICATIONS: A prednisone pack was prescribed to your pharmacy --Please take the tapering doses as directed; it is very important you complete the full regiment until the end as stopping this medication abruptly could be dangerous Pain medications were also prescribed to your pharmacy to take NEEDED when the pain is limiting your daily activities. Please continue the rest of your medications as prescribed. FOLLOW-UP You will need to see your primary physician in the next 48 hours. You will need to see Dr. Ross tomorrow at his office Dr. Kirby's information will be given to you if you need to follow-up with him in the future. Please return to the ER for new or concerning symptoms including but not limited to: weakness in the left leg, loss of sensation or worsening tingling in the feet or legs, urinary incontinence. Referrals: Geraldo Kirby MD, [facility] [Staff Physician] - Gt Ross MD [Staff Physician] - Disposition: HOME - Home Medications Comprehensive Discharge Medication List: Ambulatory Orders Bupropion HCl [Wellbutrin -] 150 mg PO DAILY #60 tablet 11/22/17 Gabapentin [Neurontin -] 300 mg PO BID #60 capsule 03/28/18 Olanzapine [ZyPREXA -] 10 mg PO HS #30 tablet 03/28/18 Venlafaxine HCl ER [Effexor Xr -] 150 mg PO DAILY #30 cap.er.24h 03/28/18 Methylprednisolone [Medrol Dose Eladio] 4 mg PO ASDIR #21 tablet 06/19/18 Oxycodone HCl/Acetaminophen [Percocet 5-325 mg Tablet] 1 tab PO Q4H PRN #20 tablet MDD 6 tabs 06/19/18 This patient is new to me today: Yes Date on this admission: 06/19/18 Emergency Visit: Yes Care time: The patient presented to the Emergency Department on the above date and was hospitalized for further evaluation of their emergent condition. Critical Care patient: No - Discharge Referral Referred to [facility] Med P.C.: No
--- NOTE | 2018-06-19 12:09 | CONSULT ---
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 She developed progressive pain in her Left hip and lower extremity several days ago. She went to a chiropractor yesterday, and unfortunately her pain has been progressively increasing. She did not achieve relief from muscle relaxants and anti-inflammatory medications. She has essentially been unable to ambulate and presented to the [facility] ER where CT demonstrates suggestion of Left sided L5S1 HNP. MRI confirms a very large HNP at L5S1 which is eccentric to the Left and has migrated caudally. I had a long discussion with the patient and also with the Fiancee regarding the natural history of acute disc herniations and various management strategies. I explained that the absolute indications for surgery within the first 8 weeks would be fixed motor deficits or cauda equina syndrome which she does not have. Patient is neurologically nonfocal although her pain was quite bad until she received morphine intravenously. I explained that pain which persists for greater than 2 months or is intractable, would constitute a relative indication for surgical decompression. Given her young age, she is understandably reluctant to proceed with surgery as a first line treatment. I proposed a Medrol Dosepack with GI prophylaxis and Percocet until she can see Dr. Gt Ross in the morning for IRMA. I explained that if she cannot wait or ambulate with the assistance of her Fiancee, she may require admission and consideration for surgery. She verbalizes an understanding. I have given her contact information and explained that her MRI findings are not subtle and that if she develops any of the aforementioned warning signs, she should return for re-evaluation. All questions were answered. Informed consent was obtained.
[2018-06-19 12:21] VITALS: BP 127/84; PULSE 78
[2018-06-19] MEDS ORDERED: LIDOCAINE PATCH REMOVAL MC SCH (22:00)
== END 2018-06-19 12:17 | disposition home or self-care (01) ==
LOC: JER 00:02
PROC: 3E0233Z Introduction of Anti-inflammatory into Muscle, Percutaneous Approach (ICD-10-PCS; principal; 2018-06-19)
PROC: 3E033NZ Introduction of Analgesics, Hypnotics, Sedatives into Peripheral Vein, Percutaneous Approach (ICD-10-PCS; 2018-06-19)
PROC: 3E033NZ Introduction of Analgesics, Hypnotics, Sedatives into Peripheral Vein, Percutaneous Approach (ICD-10-PCS; 2018-06-19)
PROC: 3E033NZ Introduction of Analgesics, Hypnotics, Sedatives into Peripheral Vein, Percutaneous Approach (ICD-10-PCS; 2018-06-19)
PROC: 3E0333Z Introduction of Anti-inflammatory into Peripheral Vein, Percutaneous Approach (ICD-10-PCS; 2018-06-19)
DX: M51.16 Intervertebral disc disorders with radiculopathy, lumbar region (principal); W07.XXXA Fall from chair, initial encounter; Y93.89 Activity, other specified; Y92.89 Other specified places as the place of occurrence of the external cause; Y99.8 Other external cause status; F14.10 Cocaine abuse, uncomplicated; F12.10 Cannabis abuse, uncomplicated; F31.9 Bipolar disorder, unspecified
CPT/HCPCS: 36415; 72131-TC; 72148-TC; 72192-TC; 80053; 84703; 85025; 85610; 85730; 93005; 93010; 96372; 96374; 96375; 96376; 99284-25

== ENCOUNTER 2018-08-01 21:32 | Emergency (ER) | payer OTHER ==
[2018-08-01 21:42] VITALS: BP 128/79; PULSE 88; TEMP 98.6; BMI 25.8
--- NOTE | 2018-08-01 21:50 | PDOC ---
Rapid Medical Evaluation Time Seen by Provider: 08/01/18 21:40 Medical Evaluation: Allergies Allergy/AdvReac Type Severity Reaction Status Date / Time Penicillins Allergy Severe Hives Verified 06/19/18 00:14 Vital Signs Temp Pulse Resp BP Pulse Ox 98.6 F 88 18 128/79 97 08/01/18 21:40 08/01/18 21:40 08/01/18 21:40 08/01/18 21:40 08/01/18 21:40 08/01/18 21:43 I have performed a brief in-person evaluation of this patient. The patient presents with a chief complaint of: Lower back pain. H/o bipolar, polysubstance abuse (cocaine and marijuana), chronic LBP, s/p MRI 06/28 during admission which showed DJD w/ disc herniation and nerve root impingement. Seen by NS inhouse and told she might need surgery. Was discharged w/ steroids and percocet and has since been seen by Dr Ross of pain management and received epidural last month. States Dr Ross wont give her rx for narcotics and now here for pain control. No LE weakness, saddle anesthesia or B/B incontinence Pertinent physical exam findings:stable and well hilario in NAD I have ordered the following:nothing The patient will proceed to the ED for further evaluation. Discharge Disposition - Diagnosis Back pain Qualifiers: Back pain location: low back pain Chronicity: unspecified Back pain laterality : unspecified Sciatica presence: unspecified whether sciatica present Qualified Code(s): M54.5 - Low back pain - Referrals Referrals: Roxane Echevarria MD [Primary Care Provider] - - Patient Instructions - Post Discharge Activity
[2018-08-01] MEDS ORDERED: KETOROLAC TROMETHAMINE 60 MG/2 ML VIAL IM ONE (22:36)
--- NOTE | 2018-08-01 22:39 | PDOC ---
History of Present Illness - General Chief Complaint: Back Pain Stated Complaint: PAIN Time Seen by Provider: 08/01/18 21:40 - History of Present Illness Initial Comments: 08/01/18 22:36 38-year-old female with a past medical history significant for bipolar depression and lumbar spine herniations presents for evaluation of lower back pain with posterior lateral leg radicular symptoms times the last 2 days without any precipitating traumatic event. No loss of bowel bladder function or saddle paresthesias Past History - Past Medical History Allergies/Adverse Reactions: Allergies Allergy/AdvReac Type Severity Reaction Status Date / Time Penicillins Allergy Severe Hives Verified 06/19/18 00:14 Home Medications: Ambulatory Orders Bupropion HCl [Wellbutrin -] 150 mg PO DAILY #60 tablet 11/22/17 Gabapentin [Neurontin -] 300 mg PO BID #60 capsule 03/28/18 Olanzapine [ZyPREXA -] 10 mg PO HS #30 tablet 03/28/18 Venlafaxine HCl ER [Effexor Xr -] 150 mg PO DAILY #30 cap.er.24h 03/28/18 Methylprednisolone [Medrol Dose Eladio] 4 mg PO ASDIR #21 tablet 06/19/18 Oxycodone HCl/Acetaminophen [Percocet 5-325 mg Tablet] 1 tab PO Q4H PRN #20 tablet MDD 6 tabs 06/19/18 Anemia: No Asthma: No Cancer: No Cardiac Disorders: No CVA: No COPD: No CHF: No Dementia: No Diabetes: No GI Disorders: No Disorders: No HTN: No Hypercholesterolemia: No Kidney Stones: No Liver Disease: No Seizures: No Thyroid Disease: No - Surgical History Abdominal Surgery: No Appendectomy: No Cardiac Surgery: No Cholecystectomy: No Lung Surgery: No Neurologic Surgery: No Orthopedic Surgery: No - Reproductive History PID: No - Immunization History Immunization Up to Date: No - Suicide/Smoking/Psychosocial Hx Smoking History: Never smoked Have you smoked in the past 12 months: No Number of Cigarettes Smoked Daily: 14 Cigars Per Day: 0 'Breaking Loose' booklet given: 02/25/18 Hx Alcohol Use: No Drug/Substance Use Hx: No Substance Use Type: Alcohol (Started drinking alcohol at age 17, consumes 3x 24oz daily. Last drank on 02/24/18), Cocaine (Started smoking crack cocaine at age 23. consumes $60 worth daily. Last smoked on 02/24/18), Tranquilizers ( Started using xanax at age 37, consumes 2 mg daily. Last used on 02/24/18) Hx Substance Use Treatment: Yes (one previous inpt detox & 2 inpt rehab admissions @ [facility]) Review of Systems - Review of Systems Constitutional: No: Fever : No: Incontinence Musculoskeletal: Yes: Back Pain Neurological: Yes: See HPI, Tingling *Physical Exam - Vital Signs Last Vital Signs Temp Pulse Resp BP Pulse Ox 98.6 F 88 18 128/79 97 08/01/18 21:40 08/01/18 21:40 08/01/18 21:40 08/01/18 21:40 08/01/18 21:40 - Physical Exam Comments: 08/01/18 22:37 Lumbar spine skin color and temperature are normal. Range of motion is decreased. There is no midline tenderness mild right and left paralumbar musculature spasm and tenderness. 5 out of 5 strength in bilateral lower extremities without gross sensorimotor deficits negative straight leg raise test on the right positive on the left. Neurovascularly intact. Thighs and calves are soft and nontender. Medical Decision Making - Medical Decision Making 08/01/18 22:37 Patient has had a chronic history of lower back pain she's tried multiple injections she is on Flexeril and Motrin although she hasn't taken any Motrin today. I will order a shot of Toradol for her in the emergency room and have her follow-up with spine surgery. She is under the care of a spine surgeon but would like to try somebody nail *DC/Admit/Observation/Transfer Diagnosis at time of Disposition: Lumbar radiculopathy Back pain Qualifiers: Back pain location: low back pain Chronicity: unspecified Back pain laterality : unspecified Sciatica presence: unspecified whether sciatica present Qualified Code(s): M54.5 - Low back pain - Discharge Dispostion Disposition: HOME Condition at time of disposition: Stable Decision to Admit order: No - Referrals Referrals: Roxane Echevarria MD [Primary Care Provider] - René Brizuela MD [Staff Physician] - - Patient Instructions Printed Discharge Instructions: Lumbar Radiculopathy, DI for Lumbar Radiculopathy Additional Instructions: Continue with your at home Flexeril and Motrin. Return to the emergency room for worsening symptoms and follow-up with orthopedic spine surgery in 1-2 days for further evaluation and treatment options. Of note you were given a injection of a long-acting anti-inflammatory tonight in the emergency room you should restart your Motrin tomorrow afternoon. Restart Motrin tomorrow at lunchtime - Post Discharge Activity
[2018-08-01] MEDS ORDERED: KETOROLAC TROMETHAMINE 60 MG/2 ML VIAL ONE (23:07)
== END 2018-08-01 23:00 | disposition home or self-care (01) ==
LOC: JERFT 21:32
DX: M51.16 Intervertebral disc disorders with radiculopathy, lumbar region (principal); F31.9 Bipolar disorder, unspecified
CPT/HCPCS: 99281-25

== ENCOUNTER 2018-08-10 12:32 | Emergency (ER) | payer OTHER ==
[2018-08-10 12:39] VITALS: TEMP 98; BMI 25.8
--- NOTE | 2018-08-10 13:16 | PDOC ---
History of Present Illness - General Chief Complaint: Pain, Acute Stated Complaint: RECTAL BLEEDING Time Seen by Provider: 08/10/18 13:11 History Source: Patient Exam Limitations: No Limitations - History of Present Illness Initial Comments: 38 yo F w a pmh of hemorrhoids, bipolar disorder, lumbar spine herniations, substance and alcohol abuse presents to the ER with rectal bleeding. She states she has been experiencing bloody diarrhea for the past 14 days which has been improving in the past 3 days. She also states that when she is having diarrhea episodes she has mild abdominal pain but no pain at rest unless she is actively moving her bowels. She came into the ER today to be evaluated because she says things felt off and she felt somewhat weak this morning. She denies recent episodes of lightheadedness, syncope, chest pain, shortness of breath or difficulty breathing. She denies recent fevers, chills, or infections. She also denies recent travel. She also denies having constipation at any point. PCP: Roxane Gonzalezenterologist: Was given referall for Dr. Molina but has not scheduled an appointment. PSH: Social Hx: Former substance abuser. Smokes half PPD. Denies alcohol use Allergies: Penicillins Past History - Past Medical History Allergies/Adverse Reactions: Allergies Allergy/AdvReac Type Severity Reaction Status Date / Time Penicillins Allergy Severe Hives Verified 08/10/18 12:35 Home Medications: Ambulatory Orders Bupropion HCl [Wellbutrin -] 150 mg PO DAILY #60 tablet 11/22/17 Gabapentin [Neurontin -] 300 mg PO BID #60 capsule 03/28/18 Olanzapine [ZyPREXA -] 10 mg PO HS #30 tablet 03/28/18 Venlafaxine HCl ER [Effexor Xr -] 150 mg PO DAILY #30 cap.er.24h 03/28/18 Cyclobenzaprine HCl [Flexeril 10 mg] 10 mg PO HS PRN #10 tablet 08/01/18 traZODone HCL [Trazodone HCl] 50 mg PO HS 08/10/18 Anemia: No Asthma: No Cancer: No Cardiac Disorders: No CVA: No COPD: No CHF: No Dementia: No Diabetes: No GI Disorders: No Disorders: No HTN: No Hypercholesterolemia: No Kidney Stones: No Liver Disease: No Seizures: No Thyroid Disease: No Other medical history: BACK PROBLEMS - Surgical History Abdominal Surgery: No Appendectomy: No Cardiac Surgery: No Cholecystectomy: No Lung Surgery: No Neurologic Surgery: No Orthopedic Surgery: No - Reproductive History PID: No - Immunization History Immunization Up to Date: No - Suicide/Smoking/Psychosocial Hx Smoking History: Current every day smoker Have you smoked in the past 12 months: No Number of Cigarettes Smoked Daily: 14 Cigars Per Day: 0 Information on smoking cessation initiated: No 'Breaking Loose' booklet given: 02/25/18 Hx Alcohol Use: No Drug/Substance Use Hx: No Substance Use Type: Alcohol (Started drinking alcohol at age 17, consumes 3x 24oz daily. Last drank on 02/24/18), Cocaine (Started smoking crack cocaine at age 23. consumes $60 worth daily. Last smoked on 02/24/18), Tranquilizers ( Started using xanax at age 37, consumes 2 mg daily. Last used on 02/24/18) Hx Substance Use Treatment: Yes (one previous inpt detox & 2 inpt rehab admissions @ [facility]) Review of Systems - Review of Systems Able to Perform ROS?: Yes Comments:: CONSTITUTIONAL: Present: Fatigue Absent: fever, no chills EYES: Absent: visual changes ENT: Absent: ear pain, no sore throat CARDIOVASCULAR: Absent: chest pain, no palpitations RESPIRATORY: Absent: cough, no SOB GI: Present: Abdominal pain, diarrhea Absent: no nausea, no vomiting, no constipation GENITOURINARY: Absent: dysuria, no frequency, no hematuria MUSKULOSKELETAL: Present: Chronic back pain Absent: no arthralgia, no myalgia SKIN: Absent: rash NEURO: Absent: headache *Physical Exam - Vital Signs Last Vital Signs Temp Pulse Resp BP Pulse Ox 98.0 F 102 H 18 116/78 100 08/10/18 12:37 08/10/18 12:37 08/10/18 12:37 08/10/18 12:37 08/10/18 12:37 - Physical Exam Comments: GENERAL: Well-appearing, well-nourished. No apparent distress. HEENT: Normocephalic, atraumatic. PERRL, EOM intact. CARDIOVASCULAR: Normal S1, S2. Regular rate and rhythm. PULMONARY: No evidence of respiratory distress. Lungs clear to auscultation bilaterally. No wheezing, rales or rhonchi. ABDOMEN: Soft, non-distended, non-tender. Normal bowel sounds. Negative hutchinson sign. EXTREMITIES: Normal ROM in all four extremities. No gross deformities. SKIN: Warm, dry. No rash NEUROLOGICAL: No focal neurological deficits. Rectal Exam: positive: normal rectal tone, hemorrhoids (diffusely, internal and external. None that are thrombosed. ). negative: normal exam ED Treatment Course - LABORATORY CBC & Chemistry Diagram: 08/10/18 13:03 08/10/18 13:03 Medical Decision Making - Medical Decision Making 38 yo F w a pmh of hemorrhoids, bipolar disorder, lumbar spine herniations, substance and alcohol abuse presents to the ER with rectal bleeding. She states she has been experiencing bloody diarrhea for the past 14 days which has been improving in the past 3 days. She also states that when she is having diarrhea episodes she has mild abdominal pain but no pain at rest unless she is actively moving her bowels. She came into the ER today to be evaluated because she says things felt off and she felt somewhat weak this morning. She denies recent episodes of lightheadedness, syncope, chest pain, shortness of breath or difficulty breathing. She denies recent fevers, chills, or infections. She also denies recent travel. She also denies having constipation at any point. Denies taking NSAIDs recently. VS: WNL. Was tachy at triage but her HR was 90 when I examined her at bedside. DDx IBNLT: Upper vs lower GI bleed, more likely lower - hemorroigs, anal fissure , cruhn vs UC, gastroenteritis, PUD, gastritis, colon cancer, diverticulosis, angiodysplasia Plan: cbc, cmp, lactic, FOBT, IV hydration, GI cocktail, re-assess. Labs unremarkable FOBT negative Lactic normal. Patient has no pain and requests discharge. She is stable for outpatient GI fu. *DC/Admit/Observation/Transfer Diagnosis at time of Disposition: Bloody diarrhea - Discharge Dispostion Disposition: HOME Condition at time of disposition: Improved Decision to Admit order: No - Referrals Referrals: Roxane Echevarria MD [Primary Care Provider] - Ethan Miller DO [Staff Physician] - - Patient Instructions Printed Discharge Instructions: Diarrhea Additional Instructions: You came into the ER with diarrhea. We looked at your blood and found no abnormalities. We also sent a sample of your stool the lab which showed there was no blood in it. We are giving you the number of a airplane dispatcher to call up and schedule an appointment with. Please make sure to schedule an appointment in the next 3 to 5 days. Come back to the ER immediately if your pain worsens, you start vomiting, or have any other new or worsening concerns. Thank you for coming to the [facility] ER. We hope you feel better soon! Print Language: IRISH - Post Discharge Activity
[2018-08-10] MEDS ORDERED: SODIUM CHLORIDE 0.9% 500 ML INFUS.BAG IV ONE (13:30)
[2018-08-10 13:54] LABS: BASO % 0.9 % (0-2.0); EOS % 0.9 % (0-4.5); HEMATOCRIT 34.6 % (32.4-45.2); HEMOGLOBIN 11.5 GM/dL (10.7-15.3); LYMPH % 31.2 % (8-40); MCH 30.3 pg (25.7-33.7); MCHC 33.4 g/dl (32.0-36.0); MEAN CELL VOLUME 90.7 fl (80-96); MEAN PLT VOLUME 7.8 fl (7.5-11.1); MONO % 5.8 % (3.8-10.2); NEUT % 61.2 % (42.8-82.8); PLATELET COUNT 329 K/MM3 (134-434); RBC 3.81 M/mm3 (3.60-5.2); RDW 13.9 % (11.6-15.6)
[2018-08-10] MEDS ORDERED: FAMOTIDINE 20 MG/50 ML IVPB 20 MG/50 ML MG IVPB ONE ×2 (13:55→14:11)
[2018-08-10] MEDS ORDERED: MAG HYDROX/AL HYDROX/SIMETH -MYLANTA- ORAL SUSPENSION PO ONE (13:55)
[2018-08-10] MEDS ORDERED: MAG HYDROX/AL HYDROX/SIMETH 30 ML UNIT-DOSE CUP ONE (14:11)
[2018-08-10 14:30] LABS: ALBUMIN 3.4 g/dl (3.4-5.0); ALK PHOS 71 U/L (45-117); ANION GAP 6 MMOL/L (8-16); BILIRUBIN,TOTAL 0.1 mg/dL (0.2-1); BLOOD UREA NITROGEN 14 mg/dL (7-18); CALCIUM 8.5 mg/dL (8.5-10.1); CHLORIDE 110 mmol/L (98-107); CO2 23 mmol/L (21-32); CREATININE 0.9 mg/dL (0.55-1.3); GLUCOSE,RANDOM 77 mg/dL (74-106); SGOT/AST 9 U/L (15-37); SGPT/ALT 18 U/L (13-61); SODIUM 139 mmol/L (136-145); TOT PROT 6.8 g/dl (6.4-8.2)
--- NOTE | 2018-08-10 16:01 | PDOC ---
Documentation entered by Niru Leal SCRIBE, acting as scribe for Freya Medrano MD. Freya Medrano MD: This documentation has been prepared by the Elvis reid Sammi, SCRIBE, under my direction and personally reviewed by me in its entirety. I confirm that the documentation accurately reflects all work, treatment, procedures, and medical decision making performed by me. Attending Attestation - Resident Resident Name: John Reynoso - ED Attending Attestation I have performed the following: I have examined & evaluated the patient, The case was reviewed & discussed with the resident, I agree w/resident's findings & plan, Exceptions are as noted - HPI HPI: 08/10/18 14:22 The patient is a 38 year old female, with a significant PMH of hemmoroids, bipolar disorder, lumbar spine herniations, substance and alcohol abuse, who presents to the emergency department for evaluation of 14 days of bloody diarrhea, with improvement over the last couple of days. Patient endorses abdominal pain during bowel movements and occassional nausea. Patient presents today complaining of generalized weakness and fatigue beginning this morning. The patient denies chest pain, shortness of breath, headache and dizziness. Denies fever, chills, vomit, and constipation. Denies dysuria, frequency, urgency and hematuria. Allergies: Penicillin Surgical history: C-sec PCP: Dr. Echevarria - Physicial Exam PE: 08/10/18 15:15 GENERAL: The patient is in no acute distress. ENT: Ears normal, nares patent, oropharynx clear without exudates. Moist mucous membranes. NECK: Normal range of motion, supple, no nuchal rigidity LUNGS: Breath sounds equal, clear to auscultation bilaterally. No wheezes, and no crackles. HEART: Regular rate and rhythm, normal S1 and S2 without murmur, rub or gallop. ABDOMEN: Soft, nontender, normoactive bowel sounds. No guarding, no rebound. No masses palpable. EXTREMITIES: Normal range of motion, no edema. NEUROLOGICAL: Cranial nerves II through XII grossly intact. Normal speech. No focal neurological deficits. SKIN: Warm, Dry, normal turgor, no rashes or lesions noted. - Medical Decision Making 08/10/18 15:48 Laboratory Tests 08/10/18 08/10/18 08/10/18 13:03 13:03 13:41 WBC 11.0 H Hgb 11.5 Hct 34.6 Plt Count 329 D BUN 14 Creatinine 0.9 Stool Occult Blood Negative Pt has no abdominal tenderness to palpation No fevers or chills No vomiting I have had a long conversation with the patient regarding her symptoms It seems like a CT scan will have low utility in this patient Pt would like to go home She has follow up with Jesse Will plan to discharge to home Clinical impression: diarrhea, initial presentation
[2018-08-10 16:12] VITALS: BP 128/74; PULSE 86
== END 2018-08-10 16:12 | disposition home or self-care (01) ==
LOC: JER 12:32
PROC: 3E0337Z Introduction of Electrolytic and Water Balance Substance into Peripheral Vein, Percutaneous Approach (ICD-10-PCS; principal; 2018-08-10)
PROC: 3E033GC Introduction of Other Therapeutic Substance into Peripheral Vein, Percutaneous Approach (ICD-10-PCS; 2018-08-10)
DX: K92.1 Melena (principal); F31.9 Bipolar disorder, unspecified; K64.9 Unspecified hemorrhoids
CPT/HCPCS: 36415; 80053; 82272; 83605; 85025; 96365; 99283-25

== ENCOUNTER 2018-09-11 20:24 | Inpatient (IN) | payer OTHER ==
[2018-09-11 20:54] VITALS: BMI 25.0
--- NOTE | 2018-09-11 21:22 | HP ---
CIWA Score Nausea/Vomitin Muscle Tremors: None Anxiety: 4-Mod. Anxious/Guarded Agitation: 4-Moderately Restless Paroxysmal Sweats: 3 Orientation: 0-Oriented Tacttile Disturbances: 2-Mild Itch/Numbness/Burn Auditory Disturbances: 1-Very Mild Visual Disturbances: 1-Very Mild Sensitivity Headache: 1-Very Mild CIWA-Ar Total Score: 19 - Admission Criteria OAS Guidelines: Admission for Medically Managed Detox: Requires at least one of the followin. CIWA greater than 12 2. Seizures within the past 24 hours 3. Delirium tremens within the past 24 hours 4. Hallucinations within the past 24 hours 5. Acute intervention needed for co occurring medical disorder 6. Acute intervention needed for co occurring psychiatric disorder 7. Severe withdrawal that cannot be handled at a lower level of care (continued vomiting, continued diarrhea, abnormal vital signs) requiring intravenous medication and/or fluids 8. Patient presents the following: CIWA greater than 12 Admission Criteria Met: Admission criteria met Admission ROS [facility] Chief Complaint: c/o withdrawal sx's. seeking detox Allergies/Adverse Reactions: Allergies Allergy/AdvReac Type Severity Reaction Status Date / Time Penicillins Allergy Severe Hives Verified 09/11/18 20:48 History of Present Illness: 38 y.o.female with reported hx/o alcoholism and xanax dependence here for detox. client is self referred. presents with c/o withdrawal sx's. ciwa 19. utox + yomaira. client reports last xanax 4 days ago. last alcohol drink last night. reports a clean time of 6 months relapsing a few weeks ago. denies hx/o sez, black outs, si/hi/avh. domiclied, unemployed, denies legals Exam Limitations: No Limitations - Ebola screening Have you traveled outside of the country in the last 21 days: No (N) Have you had contact with anyone from an Ebola affected area: No Do you have a fever: No - Review of Systems Constitutional: Chills, Loss of Appetite, Malaise, Changes in sleep EENT: reports: No Symptoms Reported Respiratory: reports: Shortness of Breath Cardiac: reports: No Symptoms Reported GI: reports: Nausea, Poor Appetite, Poor Fluid Intake Musculoskeletal: reports: Back Pain Integumentary: reports: No Symptoms Reported Neuro: reports: Headache Endocrine: reports: No Symptoms Reported Hematology: reports: No Symptoms Reported Psychiatric: reports: Orientated x3, Anxious, Depressed Other Systems: Reviewed and Negative Patient History - Patient Medical History Hx Anemia: No Hx Asthma: No Hx Chronic Obstructive Pulmonary Disease (COPD): No Hx Cancer: No Hx Cardiac Disorders: No Hx Congestive Heart Failure: No Hx Hypertension: No Hx Hypercholesterolemia: No Hx Pacemaker: No HX Cerebrovascular Accident: No Hx Seizures: No Hx Dementia: No Hx Diabetes: No Hx Gastrointestinal Disorders: No Hx Liver Disease: No Hx Genitourinary Disorders: No Hx Sexually Transmitted Disorders: No Hx Renal Disease (ESRD): No Hx Thyroid Disease: No Hx Human Immunodeficiency Virus (HIV): No Hx Hepatitis C: No Hx Depression: Yes Hx Suicide Attempt: No Hx Bipolar Disorder: Yes (on med) Hx Schizophrenia: No - Patient Surgical History Past Surgical History: Yes Hx Neurologic Surgery: No Hx Cataract Extraction: No Hx Cardiac Surgery: No Hx Lung Surgery: No Hx Breast Surgery: No Hx Breast Biopsy: No Hx Abdominal Surgery: No Hx Appendectomy: No Hx Cholecystectomy: No Hx Genitourinary Surgery: No Hx Section: Yes Hx Orthopedic Surgery: No Hx Hysterectomy: No Anesthesia Reaction: No - PPD History Previous Implant?: Yes Documented Results: Negative w/proof Implanted On Prior [facility] Admission?: Yes Date: 11/11/17 Results: 0mm PPD to be Administered?: No - Reproductive History Patient is a Female of Child Bearing Age (11 -55 yrs old): Yes Last Menstrual Period: 08/24/18 Patient : No (neg cg) - Smoking Cessation Smoking history: Current every day smoker Have you smoked in the past 12 months: No Aproximately how many cigarettes per day: 14 Cigars Per Day: 0 Hx Chewing Tobacco Use: No Initiated information on smoking cessation: Yes 'Breaking Loose' booklet given: 09/11/18 - Substance & Tx. History Hx Alcohol Use: Yes Hx Substance Use: Yes Substance Use Type: Alcohol, Cocaine, Tranquilizers (xanax) Hx Substance Use Treatment: Yes ([facility]) - Substances abused Alcohol Other (specify): wine Substance route: Oral Frequency: 3-6 times per week Amount used: 4 glasses wine Age of first use: 14 Date of last use: 09/11/18 Crack Substance route: Smoking Frequency: Daily Amount used: $200 Age of first use: 23 Date of last use: 09/11/18 Alprazolam (Xanax) Substance route: Oral Frequency: 3-6 times per week Amount used: 2/2mg Age of first use: 36 Date of last use: 09/08/18 Family Disease History - Family Disease History Family Disease History: [place]: Mother, Other: Father (alcohol,sober) Admission Physical Exam [facility] - Vital Signs Vital Signs: Vital Signs - 24 hr 09/11/18 20:47 Temperature 97.7 F Pulse Rate 101 H Respiratory 18 Rate Blood Pressure 123/92 - Physical General Appearance: Yes: Mild Distress, Anxious, Other (depressed affect) HEENTM: Yes: EOMI, Normocephalic, Normal Voice, JADYN, Pharynx Normal Respiratory: Yes: Chest Non-Tender, Lungs Clear, Normal Breath Sounds, No Respiratory Distress, No Accessory Muscle Use Neck: Yes: No masses,lesions,Nodules, Supple, Trachea in good position Breast: Yes: Breast Exam Deferred Cardiology: Yes: Regular Rhythm, Regular Rate, S1, S2 Abdominal: Yes: Normal Bowel Sounds, Non Tender, Soft Genitourinary: Yes: Within Normal Limits Back: Yes: Normal Inspection Musculoskeletal: Yes: full range of Motion, Gait Steady Extremities: Yes: Normal Capillary Refill, Normal Range of Motion, Non-Tender Neurological: Yes: Alert, Motor Strength 5/5, Depressed Affect Integumentary: Yes: Dry, Cold (cool) Lymphatic: Yes: Within Normal Limits - Diagnostic (1) Alcohol dependence with uncomplicated withdrawal Current Visit: Yes Status: Acute (2) Bipolar disorder Current Visit: Yes Status: Chronic (3) Cocaine dependence Current Visit: Yes Status: Acute (4) Sedative hypnotic or anxiolytic dependence Current Visit: Yes Status: Suspected (5) Substance induced mood disorder Current Visit: Yes Status: Suspected (6) Nicotine dependence Current Visit: Yes Status: Chronic Qualifiers: Nicotine product type: cigarettes Substance use status: in withdrawal Qualified Code(s): F17.213 - Nicotine dependence, cigarettes, with withdrawal Cleared for Admission [facility] - Detox or Rehab [facility] Level of Care: Medically Managed Detox Regimen/Protocol: Librium Claeared for Rehab Admission: No Urine Drug Screen - Test Device Lot number: [id number] Expiration date: 06/09/20 - Control Is test valid?: Yes - Results Drug screen NEGATIVE: No Urine drug screen results: [facility]-Cocaine Inpatient Rehab Admission - Rehab Decision to Admit Inpatient rehab admission?: No
[2018-09-11] MEDS ORDERED: NICOTINE POLACRILEX 2 MG GUM BUC PRN (21:25)
[2018-09-11] MEDS ORDERED: MENTHOL/PHENOL 1 EACH UD MM PRN (21:25)
[2018-09-11] MEDS ORDERED: MAGNESIUM CITRATE 300 ML BOTTLE PO PRN (21:25)
[2018-09-11] MEDS ORDERED: P-EPHED 60MG/TRIPROLIDI 2.5MG TABLET PO PRN (21:25)
[2018-09-11] MEDS ORDERED: MAG HYDROX/AL HYDROX/SIMETH 30 ML UNIT-DOSE CUP PO PRN (21:25)
[2018-09-11] MEDS ORDERED: MAGNESIUM HYDROX 2400MG/30ML ORAL SUSPENSION 30 ML CUP PO PRN (21:25)
[2018-09-11] MEDS ORDERED: IBUPROFEN 400 MG TABLET (FP) PO PRN (21:25)
[2018-09-11] MEDS ORDERED: ACETAMINOPHEN 325 MG TABLET (FP) PO PRN ×2 (21:25)
[2018-09-11] MEDS ORDERED: BISMUTH SUBSALICYLATE 524 MG/30 ML UD PO PRN (21:25)
[2018-09-11] MEDS ORDERED: chlordiazePOXIDE HCL 10 MG CAPSULE PO PRN (21:25)
[2018-09-11] MEDS ORDERED: METHOCARBAMOL 500 MG TABLET PO PRN (21:25)
[2018-09-11] MEDS ORDERED: DICYCLOMINE HCL 10 MG CAPSULE PO PRN (21:25)
[2018-09-11] MEDS ORDERED: MELATONIN 5 MG TABLETS PO PRN (21:25)
[2018-09-11] MEDS ORDERED: hydrOXYzine PAMOATE 25 MG CAPSULE (FP) PO PRN (21:25)
[2018-09-11] MEDS ORDERED: guaiFENesin 200 MG/10 ML 10 ML UNIT-DOSE CUPS PO PRN (21:25)
[2018-09-11] MEDS ORDERED: ONDANSETRON *ODT* 4 MG TABLET SL PRN (21:25)
[2018-09-11] MEDS ORDERED: THIAMINE HCL 100 MG TABLET (FP) PO SCH (22:00)
[2018-09-11] MEDS: chlordiazePOXIDE HCL 25 MG CAPSULE PO SCH (22:50)
[2018-09-12] MEDS: chlordiazePOXIDE HCL 25 MG CAPSULE PO SCH ×2 (06:01→13:29)
--- NOTE | 2018-09-12 09:24 | CONSULT ---
[facility] Psychiatric Consult - Data Date of interview: 09/12/18 Admission source: Self-referred Identifying data: Ms Carranza is a 38 years old single female, mother of 2 children, unemployed receiving SSD, domiciled seeking detox treatment for alcohol, cocaine and benzodiazepine Substance Abuse History: Reports history of alcohol, crack cocaine and xanax use. refer to addiction counselor's summary for further information Medical History: Significant for history of treatment for trichomoniasis and c- section x1 in 2002. Smokes 14 cigarettes daily Psychiatric History: Reports that her onset of psychiatric illness was at age 20 when she was admitted to [facility], diagnosed with Bipolar Disorder and started on psychotropic medications. Reports multiple previous psychiatric hospitalizations at various facilities including [facility], [facility] and most recently for a week at [facility] in [place].She was discharged on 09/08/18 on Gabapentin 600 mg /bid & 900 mg/hs, Lamictal 50 mg/day, Latuda 80 mg/day and Trazadone 200 mg/hs. Reports that she is currently receiving outpatient psychiatric treatment at the [facility] in [facility]. Denies history of suicide attempts. At present, denies experiencing psychotic, manic symptoms, S/H ideations. However, reports feeling depressed, anxious and sleeping poorly Physical/Sexual Abuse/Trauma History: Denies history of emotional, physical or sexual abuse as well as DV relationship. Additional Comment: Denies criminal history Mental Status Exam - Mental Status Exam Alert and Oriented to: Time, Place, Person Cognitive Function: Fair Patient Appearance: Well Groomed Mood: Depressed, Anxious Patient Behavior: Cooperative Speech Pattern: Clear Voice Loudness: Normal Thought Process: Intact, Goal Oriented Hallucinations: Denies Suicidal Ideation: Denies Homicidal Ideation: Denies Insight/Judgement: Poor Sleep: Poorly Appetite: Fair Muscle strength/Tone: Normal Gait/Station: Normal Psychiatric Findings - Problem List ([place] 1, 2,3) (1) Bipolar disorder Current Visit: Yes Status: Chronic (2) Substance induced mood disorder Current Visit: Yes Status: Acute (3) Substance-induced sleep disorder Current Visit: No Status: Acute (4) Alcohol dependence with uncomplicated withdrawal Current Visit: Yes Status: Acute (5) Cocaine dependence Current Visit: Yes Status: Acute (6) Sedative hypnotic or anxiolytic dependence Current Visit: Yes Status: Acute (7) Nicotine dependence Current Visit: Yes Status: Chronic - Initial Treatment Plan Initial Treatment Plan: 1) Continue Latuda 80 mg po daily, Haldol 5 mg po daily , Abilify 5mg po daily, Gabapentin 600 mg BID 7 900 mg HS. 2) Start Trazadone 100 mg po HS and Vistaril 50 mg po Q 4hrs prn for anxiety. 3) Continue inpatient detoxification
[2018-09-12] MEDS ORDERED: hydrOXYzine PAMOATE 50 MG CAPSULE (FP) PO PRN (09:38)
[2018-09-12] MEDS ORDERED: NICOTINE 21 MG/24 HOURS TOPICAL PATCH TD SCH (10:00)
[2018-09-12] MEDS ORDERED: PRENATAL VITAMINS W/ FOLIC ACID TABLET (FP) PO SCH (10:00)
[2018-09-12 10:09] LABS: ALBUMIN 3.3 g/dl (3.4-5.0); BILIRUBIN,TOTAL 0.2 mg/dL (0.2-1); CALCIUM 8.7 mg/dL (8.5-10.1); CREATININE 0.8 mg/dL (0.55-1.3); POTASSIUM 3.9 mmol/L (3.5-5.1); TOT PROT 6.3 g/dl (6.4-8.2)
--- NOTE | 2018-09-12 10:22 | PN ---
S CIWA - CIWA Score Nausea/Vomitin-No Nausea/No Vomiting Muscle Tremors: 3 Anxiety: 3 Agitation: 3 Paroxysmal Sweats: 3 Orientation: 0-Oriented Tacttile Disturbances: 0-None Auditory Disturbances: 0-None Visual Disturbances: 0-None Headache: 0-None Present CIWA-Ar Total Score: 12 [facility] Progress Note (SOAP) Subjective: irritable agitation sweats anxiety headache muscle spasm Objective: 09/12/18 10:20 Vital Signs Temperature 97.0 F L 09/12/18 09:17 Pulse Rate 84 09/12/18 09:17 Respiratory Rate 18 09/12/18 09:17 Blood Pressure 114/79 09/12/18 09:17 O2 Sat by Pulse Oximetry (%) Laboratory Tests 09/11/18 09/12/18 20:55 07:00 Sodium 138 Potassium 3.9 Chloride 106 Carbon Dioxide 27 Anion Gap 5 L BUN 11 Creatinine 0.8 Est GFR (CKD-EPI)AfAm 107.64 Est GFR (CKD-EPI)NonAf 92.87 Random Glucose 91 Calcium 8.7 Total Bilirubin 0.2 AST 14 L ALT 22 Alkaline Phosphatase 55 Total Protein 6.3 L Albumin 3.3 L POC Urine HCG, Qual Negative labs pending aaox3 ambulating no acute distress Assessment: 09/12/18 10:21 withdrawal sx Plan: continue detox increase fluids
[2018-09-12] MEDS ORDERED: CYCLOBENZAPRINE HCL 10 MG TABLET (FP) PO PRN (10:23)
[2018-09-12] MEDS ORDERED: HALOPERIDOL 5 MG TABLET (FP) PO ONE (10:30)
[2018-09-12] MEDS ORDERED: HALOPERIDOL 5 MG TABLET (FP) PO PRN (10:30)
[2018-09-12] MEDS ORDERED: LURASIDONE HCL 40 MG TABLET PO SCH (10:30)
[2018-09-12] MEDS ORDERED: ARIPiprazole 5 MG TABLET (FP) PO SCH (10:30)
[2018-09-12 10:51] LABS: HEMATOCRIT 32.4 % (32.4-45.2); MCH 30.7 pg (25.7-33.7); MCHC 33.8 g/dl (32.0-36.0); MEAN CELL VOLUME 90.8 fl (80-96); MEAN PLT VOLUME 8.7 fl (7.5-11.1); PLATELET COUNT 275 K/MM3 (134-434); RBC 3.57 M/mm3 (3.60-5.2); RDW 13.8 % (11.6-15.6); WHITE BLOOD COUNT 9.2 K/mm3 (4.0-10.0)
[2018-09-12 13:57] VITALS: BP 113/52; PULSE 94; TEMP 97.7
--- NOTE | 2018-09-12 15:39 | PN ---
S Progress Note Note: pt insisted on leaving regardless of prn medication and changing her room to a quieter room. Pt states she needs to go home. Pt signed out AMA.
--- NOTE | 2018-09-12 16:02 | DS ---
[facility] Detox Discharge Summary Admission Date: 09/11/18 - History Present History: Alcohol Dependence, Cannabis Dependence, Cocaine Dependence - Physical Exam Results Vital Signs: Vital Signs Temperature 97.7 F 09/12/18 13:56 Pulse Rate 94 H 09/12/18 13:56 Respiratory Rate 18 09/12/18 13:56 Blood Pressure 113/52 L 09/12/18 13:56 O2 Sat by Pulse Oximetry (%) - Treatment Hospital Course: Discharged Condition Good - Medication Discharge Medications: Ambulatory Orders Cyclobenzaprine HCl [Flexeril 10 mg] 10 mg PO HS PRN #10 tablet 08/01/18 Lurasidone HCl [Latuda] 80 mg PO DAILY 09/11/18 traZODone HCL [Desyrel -] 200 mg PO HS 09/11/18 - AMA Did Patient Leave Against Medical Advice: Yes
[2018-09-12] MEDS ORDERED: GABAPENTIN 300 MG CAPSULE (FP) PO SCH ×2 (17:00→22:00)
[2018-09-12] MEDS ORDERED: chlordiazePOXIDE 5 MG CAPSULE PO SCH (21:00)
[2018-09-12] MEDS ORDERED: traZODone HCL 100 MG TABLET (FP) PO SCH (22:00)
[2018-09-13] MEDS ORDERED: chlordiazePOXIDE HCL 10 MG CAPSULE PO SCH (21:00)
[2018-09-13] MEDS ORDERED: chlordiazePOXIDE HCL 10 MG CAPSULE PO PRN (21:00)
== END 2018-09-12 15:13 | disposition home or self-care (01) | DRG 897 ==
LOC: YASAS 20:24 → Y6N 21:03
PROVIDERS: ADMIT Surgery; ATTEND Surgery
PROC: HZ2ZZZZ Detoxification Services for Substance Abuse Treatment (ICD-10-PCS; principal; 2018-09-11)
DX: F10.230 Alcohol dependence with withdrawal, uncomplicated (principal); F13.20 Sedative, hypnotic or anxiolytic dependence, uncomplicated; F14.20 Cocaine dependence, uncomplicated; F19.282 Other psychoactive substance dependence with psychoactive substance-induced sleep disorder; F12.20 Cannabis dependence, uncomplicated; F17.210 Nicotine dependence, cigarettes, uncomplicated; F19.24 Other psychoactive substance dependence with psychoactive substance-induced mood disorder; F31.9 Bipolar disorder, unspecified; Z88.0 Allergy status to penicillin
CPT/HCPCS: 36415; 80053; 81025; 85027; 86593; 90853

== ENCOUNTER 2018-09-19 11:05 | Emergency (ER) | payer OTHER | END 2018-09-19 14:17 | disposition home or self-care (01) | LOC: JER 11:05 ==

== ENCOUNTER 2018-10-28 16:08 | Observation (INO) | payer OTHER ==
[2018-10-28 16:19] VITALS: BMI 26.6
--- NOTE | 2018-10-28 16:33 | PDOC ---
Rapid Medical Evaluation Chief Complaint: Pain, Acute Time Seen by Provider: 10/28/18 16:16 Medical Evaluation: Allergies Allergy/AdvReac Type Severity Reaction Status Date / Time Penicillins Allergy Severe Hives Verified 09/19/18 11:12 Vital Signs Temp Pulse Resp BP Pulse Ox 98.3 F 89 18 115/72 97 10/28/18 16:16 10/28/18 16:16 10/28/18 16:16 10/28/18 16:16 10/28/18 16:16 10/28/18 16:30 I have performed a brief in-person evaluation of this patient. The patient presents with a chief complaint of:L flank pain w/ nausea Pertinent physical exam findings:stable I have ordered the following:labs/ua The patient will proceed to the ED for further evaluation. 10/28/18 16:32 Discharge Disposition - Diagnosis Flank pain - Discharge Dispostion Last Admission D/C Date: 09/12/18 - Referrals Referrals: Roxane Echevarria MD [Primary Care Provider] - - Patient Instructions - Post Discharge Activity
[2018-10-28] MEDS ORDERED: ONDANSETRON *ODT* 4 MG TABLET SL ONE (16:50)
[2018-10-28] MEDS ORDERED: ONDANSETRON *ODT* 4 MG TABLET ONE (17:17)
--- NOTE | 2018-10-28 17:38 | PDOC ---
History of Present Illness - General Chief Complaint: Pain, Acute Stated Complaint: Pain Time Seen by Provider: 10/28/18 16:16 - History of Present Illness Initial Comments: 10/28/18 17:32 CHIEF COMPLAINT: left arm pain HISTORY OF PRESENT ILLNESS: 38 yo F with hx of bipolar disorder presents to ED with sudden onset severe headache and left axillary pain/swelling since today. Patient states left axilla felt "like paralyzed or something." Patient reports nausea, denies vomiting, diarrhea. Patient denies hx of headaches. Currently on menstrual cycle. Denies OCP, recent travel, surgeries, sick contacts. Patient reports she has been under a lot of stress financially and has been using cocaine more than usual. PCP Dr. Hernandez. No recent travel or sick contacts. PAST MEDICAL HISTORY: FAMILY HISTORY: Denies SOCIAL HISTORY: Lives at home alone. 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 10 pack year smoking history. Admits to smoking cocaine x 15 years, last use this morning "and it was a lot." SURGICAL HISTORY: ALLERGIES: PCN REVIEW OF SYSTEMS General/Constitutional: Denies fever or chills. Denies weakness, weight change. HEENT: Denies change in vision. Denies ear pain or discharge. Denies sore throat. Cardiovascular: Denies chest pain or shortness of breath. Respiratory: Denies cough, wheezing, or hemoptysis. Gastrointestinal: Denies nausea, vomiting, diarrhea or constipation. Denies rectal bleeding. Genitourinary: Denies dysuria, frequency, or change in urination. Musculoskeletal: Pain just inferior to L axilla. Denies joint or muscle swelling or pain. Denies neck or back pain. Skin and breasts: Denies rash or easy bruising. Neurologic: Headache since today Denies vertigo, loss of consciousness, or loss of sensation. PHYSICAL EXAM General Appearance: No apparent distress, no intoxication. HEENT: EOMI, PERRLA, normal ENT inspection, normal voice, TMs normal, pharynx normal. No conjunctival pallor. No photophobia, scleral icterus. Neck: Supple. Trachea midline. No tenderness, rigidity, carotid bruit, stridor , lymphadenopathy, or thyromegaly. Respiratory/Chest: Lungs CTAB. No shortness of breath, chest tenderness, respiratory distress, accessory muscle use. No crackles, rales, rhonchi, stridor , wheezing, dullness Cardiovascular: RRR. S1, S2. No JVD, murmur, bradycardia, tachycardia. Vascular Pulses: Dorsalis-Pedis (R): 2+, Dorsalis-Pedis (L): 2+ Gastrointestinal/Abdominal: Normal bowel sounds. Abdomen soft, non-distended. No tenderness or rebound tenderness. No organomegaly, pulsatile mass, guarding , hernia, hepatomegaly, splenomegaly. Lymphatic: No adenopathy, tenderness. Musculoskeletal/Extremities: Normal inspection. FROM of all extremities, normal capillary refill. Pelvis Stable. No CVA tenderness. No tenderness to extremities, pedal edema, swelling, erythema or deformity. Integumentary: Appropriate color, dry, warm. 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 Fully oriented, alert. Appropriate mood/affect. Motor strength 5/5. No appreciable EOM palsy, facial droop or sensory deficit. Psych: Anxious, tearful. 10/28/18 21:00 Past History - Past Medical History Allergies/Adverse Reactions: Allergies Allergy/AdvReac Type Severity Reaction Status Date / Time Penicillins Allergy Severe Hives Verified 09/19/18 11:12 Home Medications: Ambulatory Orders Cyclobenzaprine HCl [Flexeril 10 mg] 10 mg PO HS PRN #10 tablet 08/01/18 Lurasidone HCl [Latuda] 80 mg PO DAILY 09/11/18 traZODone HCL [Desyrel -] 200 mg PO HS 09/11/18 hydrOXYzine PAMOATE [Vistaril -] 50 mg PO TID #12 capsule 09/19/18 Anemia: No Asthma: No Cancer: No Cardiac Disorders: No CVA: No COPD: No CHF: No Dementia: No Diabetes: No GI Disorders: No Disorders: No HTN: No Hypercholesterolemia: No Kidney Stones: No Liver Disease: No Psychiatric Problems: Yes (bipolar, anxiety) Seizures: No Thyroid Disease: No - Surgical History Abdominal Surgery: No Appendectomy: No Cardiac Surgery: No Cholecystectomy: No Lung Surgery: No Neurologic Surgery: No Orthopedic Surgery: No - Reproductive History PID: No - Immunization History Immunization Up to Date: No - Suicide/Smoking/Psychosocial Hx Smoking History: Current every day smoker Have you smoked in the past 12 months: No Number of Cigarettes Smoked Daily: 10 Cigars Per Day: 0 Information on smoking cessation initiated: No 'Breaking Loose' booklet given: 09/11/18 Hx Alcohol Use: No Drug/Substance Use Hx: No Substance Use Type: Alcohol, Cocaine, Tranquilizers (xanax) Hx Substance Use Treatment: Yes ([facility]) Abd/GI Specific PMHX - Complaint Specific PMHX Hepatitis: No Pancreatitis: No *Physical Exam - Vital Signs Last Vital Signs Temp Pulse Resp BP Pulse Ox 98.3 F 89 18 115/72 97 10/28/18 16:16 10/28/18 16:16 10/28/18 16:16 10/28/18 16:16 10/28/18 16:16 ED Treatment Course - LABORATORY CBC & Chemistry Diagram: 10/28/18 18:15 10/28/18 18:15 - Medications Given in the ED: ED Medications Discontinued Medications Generic Name Dose Route Start Last Admin Trade Name Freq PRN Reason Stop Dose Admin Ondansetron HCl 4 mg 10/28/18 16:50 10/28/18 17:24 Zofran Odt - SL 10/28/18 16:51 4 mg ONCE ONE Administration Medical Decision Making - Medical Decision Making 10/28/18 20:10 38 yo F with hx of bipolar disorder presents to ED with sudden onset severe headache and left axillary pain/swelling since today. -ekg -labs 10/28/18 21:01 trop negative ekg nl Utox + for marijuana and cocaine. UA + for soft UTI, will give macrobid will obs for chest pain in cocaine use, r/o OR. *DC/Admit/Observation/Transfer Diagnosis at time of Disposition: Cocaine abuse, Marijuana abuse - Discharge Dispostion Decision to Admit order: Yes - Referrals Referrals: Roxane Echevarria MD [Primary Care Provider] - - Patient Instructions - Post Discharge Activity
[2018-10-28 18:38] LABS: BASO % 0.9 % (0-2.0); EOS % 0.7 % (0-4.5); HEMATOCRIT 37.6 % (32.4-45.2); HEMOGLOBIN 12.2 GM/dL (10.7-15.3); LYMPH % 30.5 % (8-40); MCH 29.7 pg (25.7-33.7); MCHC 32.5 g/dl (32.0-36.0); MEAN CELL VOLUME 91.4 fl (80-96); MEAN PLT VOLUME 8.2 fl (7.5-11.1); MONO % 6.8 % (3.8-10.2); NEUT % 61.1 % (42.8-82.8); PLATELET COUNT 273 K/MM3 (134-434); RBC 4.12 M/mm3 (3.60-5.2); RDW 14.1 % (11.6-15.6); WHITE BLOOD COUNT 9.3 K/mm3 (4.0-10.0)
[2018-10-28 19:03] LABS: ALK PHOS 52 U/L (45-117); ANION GAP 3 MMOL/L (8-16); BILIRUBIN,TOTAL 0.2 mg/dL (0.2-1); CALCIUM 9.1 mg/dL (8.5-10.1); CHLORIDE 106 mmol/L (98-107); CO2 30 mmol/L (21-32); CREATININE 0.7 mg/dL (0.55-1.3); GLUCOSE,RANDOM 86 mg/dL (74-106); SGOT/AST 9 U/L (15-37); SGPT/ALT 14 U/L (13-61); SODIUM 139 mmol/L (136-145); TOT PROT 7.1 g/dl (6.4-8.2)
[2018-10-28] MEDS ORDERED: KETOROLAC TROMETHAMINE 30 MG/1 ML VIAL IVPUSH ONE (19:26)
[2018-10-28] MEDS ORDERED: METOCLOPRAMIDE HCL INJECTION 10 MG/2 ML VIAL IVPUSH ONE (19:26)
[2018-10-28] MEDS ORDERED: METOCLOPRAMIDE HCL INJECTION 10 MG/2 ML VIAL ONE (19:38)
[2018-10-28] MEDS ORDERED: KETOROLAC TROMETHAMINE 15 MG/ML VIAL ONE (19:38)
[2018-10-28 20:16] LABS: METHADONE, UR NEGATIVE ng/ml (CUTOFF=300); OPIATES, URI NEGATIVE ng/ml (CUTOFF=300); PHENCYCLIDINE,URINE NEGATIVE ng/ml (CUTOFF=25); URINE AMPHETAMINES NEGATIVE ng/ml (CUTOFF=500); URINE BARBITURATES NEGATIVE ng/ml (CUTOFF=200); URINE BENZODIAZEPINES NEGATIVE ng/ml (CUTOFF=200)
[2018-10-28 20:22] LABS: EPI CELLS 12.8 /HPF (0-5/HPF); HYALINE CASTS 4 /lpf (0-8); PH,URINE >= 9.0 (5.0-8.0); URINE APPEARANCE CLOUDY; URINE BACTERIA 654.6 /hpf (NEGATIVE); URINE BILIRUBIN NEGATIVE (NEGATIVE); URINE COLOR YELLOW; URINE GLUCOSE (UA) NEGATIVE (NEGATIVE); URINE KETONE TRACE (NEGATIVE); URINE LEUK ESTERASE TRACE (NEGATIVE); URINE NITRITE NEGATIVE (NEGATIVE); URINE PROTEIN 2+ (NEGATIVE); URINE RBC 8 /hpf (0-4); URINE UROBILINOGEN 0.2 mg/dL (0.2-1.0); URINE WBC 18 /hpf (0-5)
[2018-10-28 20:30] LABS: COCAINE, UR POSITIVE ng/ml (CUTOFF=300)
[2018-10-28] MEDS ORDERED: NITROFURANTOIN MACROCRYSTAL 50 MG CAPSULE (FP) PO SCH (20:30)
[2018-10-28] MEDS ORDERED: NITROFURANTOIN MACROCRYSTAL 50 MG CAPSULE (FP) ONE (20:45)
--- NOTE | 2018-10-28 21:10 | PN ---
Teaching Attending Note Name of Resident: Daina Sarmiento ATTENDING PHYSICIAN STATEMENT I saw and evaluated the patient. I reviewed the resident's note and discussed the case with the resident. I agree with the resident's findings and plan as documented. SUBJECTIVE: Patient is a 38 year old woman with PMH of Bipolar disorder, Hemorrhoids, Lumbar spine herniations, Rectal bleeding, Penicillin allergy, Cocaine and Alcohol abuse presents to the ER with sudden onset severe headache and left axillary pain/swelling since today. Patient states left axilla felt "like paralyzed or something." Patient reports nausea, denies vomiting or diarrhea. Patient denies chronic headaches. Currently on her monthly menstrual period. Denies OCP, recent travel, surgeries or sick contacts. Patient reports she has been under a lot of stress financially and has been using cocaine more than usual. OBJECTIVE: Alert Vital Signs Period Temp Pulse Resp BP Sys/Mccarthy Pulse Ox Last 24 Hr 98.3 F 89 18 115/72 97 HEENT: No Jaundice, eye redness or discharge, PERRLA, EOMI. Normocephalic, atraumatic. External ears are normal and hearing is grossly intact. No nasal discharge. Neck: Supple, nontender. No palpable adenopathy or thyromegaly. No JVD Chest: Good effort. Tender under left axilla. Clear to auscultation. Heart: Regular. No S3, rub or murmur Abdomen: Not distended, soft, nontender and no HSM. No rebound or guarding. Normal bowel sounds. Ext: Peripheral pulses intact. No leg edema. Skin: Warm and dry. No petechiae, rash or ecchymosis. Neuro: Alert. Oriented x3. CN 2-12 grossly intact. Sensation grossly intact in all four extremities and DTR are symmetric. Psych: Emotionally labile. Sad mood. Appropriate affect. Good insight. Current Medications Generic Name Dose Route Start Last Admin Trade Name Freq PRN Reason Stop Dose Admin Nitrofurantoin Macrocrystals 100 mg 10/28/18 20:30 10/28/18 20:46 Macrodantin - PO 100 mg ONCE LISA Administration Home Medications Medication Instructions Recorded Cyclobenzaprine HCl [Flexeril 10 10 mg PO HS PRN #10 tablet 08/01/18 mg] Lurasidone HCl [Latuda] 80 mg PO DAILY 09/11/18 traZODone HCL [Desyrel -] 200 mg PO HS 09/11/18 hydrOXYzine PAMOATE [Vistaril -] 50 mg PO TID #12 capsule 09/19/18 Abnormal Lab Results 10/28/18 10/28/18 10/28/18 18:15 19:00 19:00 Anion Gap 3 L AST 9 L Urine pH >= 9.0 H D Urine Protein 2+ H Urine Ketones Trace H Urine Blood 3+ H Cocaine Screen Positive A* U Marijuana (THC) Screen Positive A* ASSESSMENT AND PLAN: 1. Chest pain and headache - Chest pain is atypical but in view of heavy cocaine use, will admit to telemetry to rule out ACS. Initial troponin is negative and EKG is NSR with no ischemic changes. Has pyuria and will treat with Macrobid 100 mg bid pending urine culture. Urine pH of 9 suggests infection with urea splitting bacteria. Urine toxicology revealed cocaine and marijuana. Will get head CT and chest CT. 2. Tobacco Use Counseled on risks associated with tobacco use. We will provide patient all the necessary assistance to facilitate smoking cessation and prescribe Nicotine patch. 3. Alcohol and Polysubstance abuse - Implement [facility] alcohol withdrawal protocol and do neurochecks. Monitor for drug withdrawal. Implement seizure, fall and aspiration precautions. Treat with thiamine and folic acid and monitor electrolytes (Ca,Mg,K,P). Counseled patient about abstaining from illicit drugs and alcohol. Will consult environmental management specialist and refer to drug/alcohol detox upon discharge. 4. DVT prophylaxis - Lovenox 40 mg SQ q 24 hours. 5. Advance directives - Full code
--- NOTE | 2018-10-28 22:35 | HP ---
CHIEF COMPLAINT: left axilla pain PCP: David HISTORY OF PRESENT ILLNESS: Patient is a 38 y/o female with a history of bipolar disease and hypertension who presents for left axilla pain. This morning patient was at home sitting and she did cocaine. After that her left axilla has been hurting. Recently she has been doing " a lot" of cocaine everyday. Patient reports the pain has been constant and only started to feel a little better. It does not radiate. She does not find that anything makes it better. She has never had this pain before , has never had a stress test or seen a public relations account supervisor. Also reports having a throbbing headache this morning with some chills and nausea. Patient denies dysuria but reports urinating more frequently. ER course was notable for: (1) (2) (3) Recent Travel: PAST MEDICAL HISTORY: bipolar disease and hypertension PAST SURGICAL HISTORY: Social History: Smokin/2 a pack a day Alcohol: Drugs: cocaine Family History: Allergies Penicillins Allergy (Severe, Verified 09/19/18 11:12) Hives HOME MEDICATIONS: Home Medications Medication Instructions Recorded Cyclobenzaprine HCl [Flexeril 10 10 mg PO HS PRN #10 tablet 08/01/18 mg] Lurasidone HCl [Latuda] 80 mg PO DAILY 09/11/18 traZODone HCL [Desyrel -] 200 mg PO HS 09/11/18 hydrOXYzine PAMOATE [Vistaril -] 50 mg PO TID #12 capsule 09/19/18 REVIEW OF SYSTEMS CONSTITUTIONAL: Absent: fever, chills, diaphoresis, generalized weakness, malaise, loss of appetite, weight change HEENT: Absent: rhinorrhea, nasal congestion, throat pain, throat swelling, difficulty swallowing, mouth swelling, ear pain, eye pain, visual changes CARDIOVASCULAR: Absent: chest pain, syncope, palpitations, irregular heart rate, lightheadedness , peripheral edema RESPIRATORY: Absent: cough, shortness of breath, dyspnea with exertion, orthopnea, wheezing, stridor, hemoptysis GASTROINTESTINAL: Absent: abdominal pain, abdominal distension, nausea, vomiting, diarrhea, constipation, melena, hematochezia GENITOURINARY: Absent: dysuria, frequency, urgency, hesitancy, hematuria, flank pain, genital pain MUSCULOSKELETAL: left axilla pain Absent: myalgia, arthralgia, joint swelling, back pain, neck pain SKIN: Absent: rash, itching, pallor HEMATOLOGIC/IMMUNOLOGIC: Absent: easy bleeding, easy bruising, lymphadenopathy, frequent infections ENDOCRINE: Absent: unexplained weight gain, unexplained weight loss, heat intolerance, cold intolerance NEUROLOGIC: Absent: headache, focal weakness or paresthesias, dizziness, unsteady gait, seizure, mental status changes, bladder or bowel incontinence PSYCHIATRIC: Absent: anxiety, depression, suicidal or homicidal ideation, hallucinations. PHYSICAL EXAMINATION Vital Signs - 24 hr 10/28/18 16:16 Temperature 98.3 F Pulse Rate 89 Respiratory 18 Rate Blood Pressure 115/72 O2 Sat by Pulse 97 Oximetry (%) GENERAL: Awake, alert, and fully oriented, in no acute distress. HEAD: Normal with no signs of trauma. LUNGS: Breath sounds equal, clear to auscultation bilaterally. No wheezes, and no crackles. No accessory muscle use. HEART: Regular rate and rhythm, normal S1 and S2 without murmur, rub or gallop. ABDOMEN: Soft, nontender, not distended, normoactive bowel sounds, no guarding, no rebound, no masses. MUSCULOSKELETAL: Normal range of motion at all joints. No bony deformities or tenderness. UPPER EXTREMITIES: left midline axilla, tender to midline palpation LOWER EXTREMITIES: 2+ pulses, warm, well-perfused. No calf tenderness. No peripheral edema. PSYCHIATRIC: Cooperative. Good eye contact. Appropriate mood and affect. SKIN: Warm, dry, normal turgor, no rashes or lesions noted, normal capillary refill. CBC, BMP 10/28/18 18:15 10/28/18 18:15 ASSESSMENT/PLAN: Patient is a 38 y/o female with a history of bipolar disease and hypertension who presents for left axilla pain. #left axilla pain, r/o ACS - pain started after cocaine use - first trop < .02, repeat ordered stat - EKG without abnormalities or ST elevations, repeat EKG in the morning - CXR and Chest CT for other causes of left axilla pain, r/o pneumothorax - monitor on tele - Dr. Samuels consulted #headache - head CT for headache after cocaine use - acetaminophen 650 q4h for pain #UTI - nitrofurantoin 50 q6h - symptomatic with positive UA for bacteria #HTN - controlled tonight, reconcile medications in the morning #drug abuse - positive urine tox cocaine and marijuana - park care with equipment application specialist as an outpatient - continue to monitor for any signs of withdrawl #DVT ppx - Lovenox 40 sq daily FEN - regular diet - NS @ 100 Dispo: monitor on tele as obs Visit type - Emergency Visit Emergency Visit: Yes ED Registration Date: 10/28/18 Care time: The patient presented to the Emergency Department on the above date and was hospitalized for further evaluation of their emergent condition. - New Patient This patient is new to me today: Yes Date on this admission: 10/28/18 - Critical Care Critical Care patient: No ATTENDING PHYSICIAN STATEMENT I saw and evaluated the patient. I reviewed the resident's note and discussed the case with the resident. I agree with the resident's findings and plan as documented. SUBJECTIVE: OBJECTIVE: ASSESSMENT AND PLAN:
[2018-10-28] MEDS ORDERED: SODIUM CHLORIDE 1,000 ML IV SCH (22:45)
[2018-10-29] MEDS: NITROFURANTOIN MACROCRYSTAL 50 MG CAPSULE (FP) PO SCH ×3 (01:50→13:00)
[2018-10-29 07:08] LABS: HEMATOCRIT 31.1 % (32.4-45.2); HEMOGLOBIN 10.4 GM/dL (10.7-15.3); MCH 30.2 pg (25.7-33.7); MCHC 33.6 g/dl (32.0-36.0); MEAN CELL VOLUME 89.7 fl (80-96); MEAN PLT VOLUME 8.4 fl (7.5-11.1); RBC 3.47 M/mm3 (3.60-5.2); WHITE BLOOD COUNT 7.6 K/mm3 (4.0-10.0)
[2018-10-29 07:40] LABS: ANION GAP 4 MMOL/L (8-16); BLOOD UREA NITROGEN 9.3 mg/dL (7-18); CALCIUM 7.9 mg/dL (8.5-10.1); CHLORIDE 110 mmol/L (98-107); CO2 28 mmol/L (21-32); GLUCOSE,RANDOM 108 mg/dL (74-106); MAGNESIUM 2.5 mg/dL (1.8-2.4); POTASSIUM 3.9 mmol/L (3.5-5.1); SODIUM 142 mmol/L (136-145)
[2018-10-29 07:47] LABS: ALK PHOS 44 U/L (45-117); BILIRUBIN,TOTAL 0.1 mg/dL (0.2-1); CREATININE 0.8 mg/dL (0.55-1.3); PHOSPHOROUS 3.3 mg/dL (2.5-4.9); SGOT/AST 7 U/L (15-37); SGPT/ALT 10 U/L (13-61); TOT PROT 5.4 g/dl (6.4-8.2)
[2018-10-29 07:57] LABS: PLATELET COUNT 226 K/MM3 (134-434)
[2018-10-29] MEDS ORDERED: ENOXAPARIN NA (PORCINE) 40 MG/0.4 ML DISP.SYRIN SQ SCH (10:00)
--- NOTE | 2018-10-29 12:08 | CON.CARD ---
Consult Consult Specialty:: casrdiology Reason for Consultation:: cocaine abuse - History of Present Illness Chief Complaint: Pt A&(x3; left axillary/back heaviness that started yesterday is now decreased (mild), felt when she tries to move her left shoulder History of Present Illness: Ms. Carranza is a 38 year old woman with PMH of Bipolar disorder, Hemorrhoids , Lumbar spine herniations, Rectal bleeding, Penicillin allergy, Cocaine and Alcohol abuse presents to the ER with sudden onset severe headache and left axillary pain/swelling since today. Patient states left axilla felt "like paralyzed or something." Patient reports nausea, denies vomiting or diarrhea. Patient denies chronic headaches. Currently on her monthly menstrual period. Denies CP, recent travel, surgeries or sick contacts. Patient reports she has been under a lot of stress financially and has been using cocaine more than usual. - History Source History Provided By: Patient, Medical Record Limitations to Obtaining History: No Limitations - Past Medical History ...LMP: 08/24/18 - Alcohol/Substance Use Hx Alcohol Use: No - Smoking History Smoking history: Current every day smoker Have you smoked in the past 12 months: No Aproximately how many cigarettes per day: 10 Home Medications - Allergies Allergies/Adverse Reactions: Allergies Allergy/AdvReac Type Severity Reaction Status Date / Time Penicillins Allergy Severe Hives Verified 10/29/18 00:05 - Home Medications Home Medications: Ambulatory Orders Cyclobenzaprine HCl [Flexeril 10 mg] 10 mg PO HS PRN #10 tablet 08/01/18 Lurasidone HCl [Latuda] 80 mg PO DAILY 09/11/18 traZODone HCL [Desyrel -] 200 mg PO HS 09/11/18 hydrOXYzine PAMOATE [Vistaril -] 50 mg PO TID #12 capsule 09/19/18 Family Disease History - Family Disease History Family Disease History: CA: Mother, Other: Father (alcohol,sober) - Risk Factors Known Risk Factors: Yes: Physical Inactivity, Smoking, Other (cocaine abuse; overweight; depression) Vital Signs: Vital Signs Temperature 99.2 F 10/29/18 05:00 Pulse Rate 86 10/29/18 09:00 Respiratory Rate 18 10/29/18 09:00 Blood Pressure 107/66 10/29/18 09:00 O2 Sat by Pulse Oximetry (%) 99 10/29/18 05:51 Abnormal Lab Results 10/28/18 10/28/18 10/28/18 18:15 19:00 19:00 RBC Hgb Hct Chloride Anion Gap 3 L Random Glucose Calcium Magnesium Total Bilirubin AST 9 L ALT Alkaline Phosphatase Total Protein Albumin Urine pH >= 9.0 H D Urine Protein 2+ H Urine Ketones Trace H Urine Blood 3+ H Cocaine Screen Positive A* U Marijuana (THC) Screen Positive A* 10/29/18 10/29/18 06:21 06:21 RBC 3.47 L Hgb 10.4 L Hct 31.1 L D Chloride 110 H Anion Gap 4 L Random Glucose 108 H Calcium 7.9 L Magnesium 2.5 H Total Bilirubin 0.1 L AST 7 L ALT 10 L Alkaline Phosphatase 44 L Total Protein 5.4 L Albumin 3.0 L Urine pH Urine Protein Urine Ketones Urine Blood Cocaine Screen U Marijuana (THC) Screen Constitutional: Yes: Well Nourished, Anxious Eyes: Yes: WNL - Other Data Labs, Other Data: CBC, BMP 10/29/18 06:21 10/29/18 06:21 Troponin, BNP 10/28/18 10/29/18 10/29/18 18:15 00:01 06:21 Troponin I < 0.02 < 0.02 < 0.02 Troponin, BNP 10/28/18 10/29/18 10/29/18 18:15 00:01 06:21 Troponin I < 0.02 < 0.02 < 0.02 Problem List - Problems (1) Cocaine abuse Assessment/Plan: +toxicology screeen for cocaine and marijuana Pt was told to stop propanolol (she takes it at home for "restlessness") or any other beta blockers because of her acute/chronic coaine habit. TNI < 0.02 x 3. Telemetry: NSR; EKG results pending Followup with drug rehabilitation. Code(s): F14.10 - COCAINE ABUSE, UNCOMPLICATED (2) Overweight Code(s): E66.3 - OVERWEIGHT (3) Anxiety and depression Assessment/Plan: Pt would benefit from rehabilitation for substancd abuse, as well as psychiatry for depression. According to her he is on several medications (trazxadone, gabapentin, ?"Lupac" ) for depression (takes the trazadone to help her sleep, also). Code(s): F41.9 - ANXIETY DISORDER, UNSPECIFIED; F32.9 - MAJOR DEPRESSIVE DISORDER, SINGLE EPISODE, UNSPECIFIED (4) Sedentary lifestyle Code(s): Z91.89 - OTH PERSONAL RISK FACTORS, NOT ELSEWHERE CLASSIFIED (5) Left axillary pain Assessment/Plan: headache and lef axillary heaviness. CT head: negative. TNI < 0.02 x 3 Tno acute STT changes on telemetry; EKG pending. Code(s): M79.622 - PAIN IN LEFT UPPER ARM (6) Marijuana abuse Code(s): F12.10 - CANNABIS ABUSE, UNCOMPLICATED (7) Tobacco abuse Assessment/Plan: Nicotine patch worked for her before; will start 21 mg daily (1/2-1 ppd smoker for the past 24 years). 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
[2018-10-29] MEDS ORDERED: NICOTINE 21 MG/24 HOURS TOPICAL PATCH TD SCH (12:45)
[2018-10-29 13:14] LABS: CHOLESTEROL 142 mg/dL (50-200); HDL CHOLESTEROL 38 mg/dL (40-60); TRIGLYCERIDES 142 mg/dL (0-150)
[2018-10-29] MEDS ORDERED: ACETAMINOPHEN 325 MG TABLET (FP) PO PRN (13:32)
--- NOTE | 2018-10-29 17:51 | DS ---
Physical Exam: SUBJECTIVE: Patient seen and examined Patient is a 38 y/o female with a history of bipolar disease and hypertension who presents for left axilla pain. Patient has no further chest pain. OBJECTIVE: Vital Signs Temperature 98.1 F 10/29/18 14:00 Pulse Rate 63 10/29/18 14:00 Respiratory Rate 18 10/29/18 09:00 Blood Pressure 99/60 10/29/18 14:00 O2 Sat by Pulse Oximetry (%) 99 10/29/18 05:51 GENERAL: The patient is awake, alert, and fully oriented, in no acute distress. HEAD: Normal with no signs of trauma. EYES: PERRL, extraocular movements intact, sclera anicteric, conjunctiva clear. ENT: Ears normal, oropharynx clear without exudates, moist mucous membranes. NECK: Trachea midline, full range of motion, supple. LUNGS: Breath sounds equal, clear to auscultation bilaterally, no wheezes, no crackles, no accessory muscle use. HEART: Regular rate and rhythm, S1, S2 without murmur, rub or gallop. ABDOMEN: Soft, nontender, nondistended, normoactive bowel sounds, no guarding, no rebound, no hepatosplenomegaly, no masses. EXTREMITIES: 2+ pulses, warm, well-perfused, no edema. NEUROLOGICAL: Cranial nerves II through XII grossly intact. Normal speech, gait not observed. PSYCH: Normal mood, normal affect. SKIN: Warm, dry, normal turgor, no rashes or lesions noted. LABS CBCD WBC 7.6 K/mm3 (4.0-10.0) 10/29/18 06:21 RBC 3.47 M/mm3 (3.60-5.2) L 10/29/18 06:21 Hgb 10.4 GM/dL (10.7-15.3) L 10/29/18 06:21 Hct 31.1 % (32.4-45.2) L D 10/29/18 06:21 MCV 89.7 fl (80-96) 10/29/18 06:21 MCHC 33.6 g/dl (32.0-36.0) 10/29/18 06:21 RDW 14.0 % (11.6-15.6) 10/29/18 06:21 Plt Count 226 K/MM3 (134-434) 10/29/18 06:21 MPV 8.4 fl (7.5-11.1) 10/29/18 06:21 CMP Sodium 142 mmol/L (136-145) 10/29/18 06:21 Potassium 3.9 mmol/L (3.5-5.1) 10/29/18 06:21 Chloride 110 mmol/L (98-107) H 10/29/18 06:21 Carbon Dioxide 28 mmol/L (21-32) 10/29/18 06:21 Anion Gap 4 MMOL/L (8-16) L 10/29/18 06:21 BUN 9.3 mg/dL (7-18) 10/29/18 06:21 Creatinine 0.8 mg/dL (0.55-1.3) 10/29/18 06:21 Random Glucose 108 mg/dL (74-106) H 10/29/18 06:21 Calcium 7.9 mg/dL (8.5-10.1) L 10/29/18 06:21 Total Bilirubin 0.1 mg/dL (0.2-1) L 10/29/18 06:21 AST 7 U/L (15-37) L 10/29/18 06:21 ALT 10 U/L (13-61) L 10/29/18 06:21 Alkaline Phosphatase 44 U/L (45-117) L 10/29/18 06:21 Total Protein 5.4 g/dl (6.4-8.2) L 10/29/18 06:21 Albumin 3.0 g/dl (3.4-5.0) L 10/29/18 06:21 CARDIAC ENZYMES Creatine Kinase 101 U/L (26-192) 10/29/18 00:01 Troponin I < 0.02 ng/ml (0.00-0.05) 10/29/18 06:21 Current Medications Generic Name Dose Route Start Last Admin Trade Name Freq PRN Reason Stop Dose Admin Acetaminophen 650 mg 10/29/18 13:32 Tylenol - PO Q4H PRN PAIN Enoxaparin Sodium 40 mg 10/29/18 10:00 10/29/18 10:32 Lovenox - SQ Not Given DAILY LISA Sodium Chloride 1,000 mls @ 100 mls/hr 10/28/18 22:45 10/28/18 23:43 Normal Saline - IV 100 mls/hr ASDIR LISA Administration Nicotine 21 mg 10/29/18 12:45 10/29/18 15:27 Nicoderm Patch - TD 21 mg DAILY LISA Administration Nitrofurantoin Macrocrystals 100 mg 10/28/18 20:30 10/28/18 20:46 Macrodantin - PO 100 mg ONCE LISA Administration Nitrofurantoin Macrocrystals 50 mg 10/29/18 00:00 10/29/18 13:00 Macrodantin - PO 50 mg Q6HPO LISA Administration Home Medications Medication Instructions Recorded Cyclobenzaprine HCl [Flexeril 10 10 mg PO HS PRN #10 tablet 08/01/18 mg] Lurasidone HCl [Latuda] 80 mg PO DAILY 09/11/18 traZODone HCL [Desyrel -] 200 mg PO HS 09/11/18 hydrOXYzine PAMOATE [Vistaril -] 50 mg PO TID #12 capsule 09/19/18 Laboratory Tests 10/28/18 10/28/18 19:00 19:00 Opiates Screen Negative Methadone Screen Negative Barbiturate Screen Negative Phencyclidine Screen Negative Ur Amphetamines Screen Negative MDMA (Ecstasy) Screen MDMA & Metabolite Pending Benzodiazepines Screen Negative Cocaine Screen Positive A* U Marijuana (THC) Screen Positive A* HOSPITAL COURSE: Date of Admission:10/28/18 Date of Discharge: 10/29/18 Patient is a 38 y/o female with a history of bipolar disease and hypertension who presents for left axilla pain. #acute chest pain r/o ACS; 3 sets of CE was negative, discussed with patient can go home with follow up with her primary and cardiology as an outpatient. #headache resolved #UTI : asymptomatic, does not want any antibiotic #HTN: continue #drug abuse: recommended abstinence discharge patient home. Minutes to complete discharge: 35 Discharge Summary Reason For Visit: CANNIBIS ABUSE, COCAINE ABUSE Current Active Problems Cocaine abuse (Acute) Marijuana abuse (Acute) Overweight (Acute) Anxiety and depression (Acute) Sedentary lifestyle (Acute) Left axillary pain (Acute) Tobacco abuse (Acute) Herniated disc (Acute) Condition: Stable - Instructions Diet, Activity, Other Instructions: low fat Diet, abstinence from alcohol and other illicit drugs since can cause chest pain and can cause heart attack. follow with cardiology within 1 week. for further testing. your test for cardiac test was normal. Referrals: Steve Martinez MD [Staff Physician] - 1 Week Disposition: HOME - Home Medications Comprehensive Discharge Medication List: Ambulatory Orders Cyclobenzaprine HCl [Flexeril 10 mg] 10 mg PO HS PRN #10 tablet 08/01/18 Lurasidone HCl [Latuda] 80 mg PO DAILY 09/11/18 traZODone HCL [Desyrel -] 200 mg PO HS 09/11/18 hydrOXYzine PAMOATE [Vistaril -] 50 mg PO TID #12 capsule 09/19/18 This patient is new to me today: Yes Date on this admission: 10/29/18 Emergency Visit: No Critical Care patient: No - Discharge Referral Referred to [facility] No
[2018-10-29 18:42] VITALS: BP 110/71; PULSE 59; TEMP 99.2
--- NOTE | 2018-10-30 00:06 | EKG ---
Test Reason : Blood Pressure : / mmHG Vent. Rate : 072 BPM Atrial Rate : 072 BPM P-R Int : 172 ms QRS Dur : 090 ms QT Int : 418 ms P-R-T Axes : 029 062 046 degrees QTc Int : 457 ms NORMAL SINUS RHYTHM NORMAL ECG WHEN COMPARED WITH ECG OF 19-JUN-2018 05:54, NO SIGNIFICANT CHANGE WAS FOUND Confirmed by SONYA HURD MD ([id number]) on 10/30/2018 12:05:40 AM Referred By: Confirmed By:SONYA HURD MD
== END 2018-10-29 18:30 | disposition home or self-care (01) ==
LOC: JER 16:08 → JERBED 21:48 → J4W 10-29 01:29
PROVIDERS: ADMIT Internal Medicine; ATTEND Internal Medicine
PROC: 3E0333Z Introduction of Anti-inflammatory into Peripheral Vein, Percutaneous Approach (ICD-10-PCS; principal; 2018-10-28)
PROC: 3E0337Z Introduction of Electrolytic and Water Balance Substance into Peripheral Vein, Percutaneous Approach (ICD-10-PCS; 2018-10-28)
PROC: 3E033GC Introduction of Other Therapeutic Substance into Peripheral Vein, Percutaneous Approach (ICD-10-PCS; 2018-10-28)
DX: F14.10 Cocaine abuse, uncomplicated (principal); F10.10 Alcohol abuse, uncomplicated; F12.10 Cannabis abuse, uncomplicated; R07.89 Other chest pain; R51 Headache; F17.210 Nicotine dependence, cigarettes, uncomplicated; F31.9 Bipolar disorder, unspecified; Z88.0 Allergy status to penicillin; M79.622 Pain in left upper arm; N39.0 Urinary tract infection, site not specified; I10 Essential (primary) hypertension; E66.3 Overweight; Z68.26 Body mass index [BMI] 26.0-26.9, adult; Z91.89 Other specified personal risk factors, not elsewhere classified; F41.9 Anxiety disorder, unspecified
CPT/HCPCS: 36415; 70450-TC; 71045-TC-FY; 71250-TC; 80053; 80061; 80307; 81003; 82550; 83721; 83735; 84100; 84443; 84484; 84703; 85025; 85027; 87086; 93005; 93010; 96374; 96375; 99285-25; G0378; G0480; J7030; Q0162

== ENCOUNTER 2024-04-26 07:00 | Day surgery (SDC) | payer OTHER ==
[2024-04-24 14:31] VITALS: BMI 35.2
[2024-04-26] MEDS ORDERED: PROPOFOL 160 ML ONE (07:51)
[2024-04-26 08:57] VITALS: TEMP 97.5
[2024-04-26 09:05] VITALS: BP 130/68; PULSE 81; RESP 20
== END 2024-04-26 09:05 | disposition home or self-care (01) ==
LOC: FASU-ENDO 07:00
PROVIDERS: ATTEND Internal Medicine Gastroenterology
PROC: 0DJD8ZZ Inspection of Lower Intestinal Tract, Via Natural or Artificial Opening Endoscopic (ICD-10-PCS; principal; 2024-04-26 08:17)
DX: K62.5 Hemorrhage of anus and rectum (principal); D64.9 Anemia, unspecified; K64.1 Second degree hemorrhoids; K64.8 Other hemorrhoids
CPT/HCPCS: 81025